=== PATIENT | female | born 1940 | race Caucasian/White ===

== ENCOUNTER → 2017-10-17 09:44 | Outpatient (CLI) | payer BC, SELFPAY ==
--- NOTE | 2017-10-17 09:46 | DI.RAD.S_ITS ---
PROCEDURE: XR ANKLE RT MIN 3V INDICATIONS: Fall TECHNIQUE: 3 views of the ankle were acquired. COMPARISON: None. FINDINGS: Bones: There is a nondisplaced lateral malleolar fracture. Ankle mortise is normally aligned. No suspicious bony lesions. Osteopenia. Soft tissues: No tibiotalar joint effusion. Achilles tendon appears normal. Mild soft tissue swelling over the lateral toes. IMPRESSION: Nondisplaced lateral malleolar fracture. Dictated by: Vannesa Murguia M.D. on 10/17/2017 at 10:18 Approved by: Vannesa Murguia M.D. on 10/17/2017 at 10:23
== END ==
PROVIDERS: PCP Family Medicine; Visit Provider Physician Assistant
DX: S82.64XA Nondisplaced fracture of lateral malleolus of right fibula, initial encounter for closed fracture (principal)
CPT/HCPCS: 73610

== ENCOUNTER → 2018-06-21 15:39 | Outpatient (CLI) | payer BC, SELFPAY ==
--- NOTE | 2018-06-21 15:40 | DI.MRI.S_ITS ---
PROCEDURE: MR CERVICAL SPINE WO CON INDICATIONS: Cervical spondylosis TECHNIQUE: Noncontrast sagittal T1 spin echo and T2 fast spin echo, sagittal STIR, foraminal oblique sagittal T2 fast spin echo, and axial gradient echo or T2 fast spin echo through the cervical spine. COMPARISON: None. FINDINGS: Image quality: Excellent. Alignment and Curvature: There is normal bony alignment. Bone Marrow: Rectal endplate changes no disc of C4-C5, C5-C6 and C6-C7 and C7-T1 discs. Spinal Cord: Visualized spinal cord has normal size and signal. No cerebellar tonsillar herniation. Paraspinous Soft Tissues: No paravertebral masses. Prevertebral soft tissues are normal in thickness. C2-C3: Loss of disc signal and slight loss of disc height. Mild, diffuse disc bulge. Moderate bilateral facet hypertrophy. No central stenosis. Moderate right and mild left neural foraminal narrowing. No neural impingement. C3-C4: Loss of disc signal and slight loss of disc height. Minimal, diffuse disc bulge. Mild right and severe left facet hypertrophy. No central stenosis. Moderate right and severe left neural foraminal narrowing flattening deformity of the exiting left C4 nerve root. C4-C5: Loss of disc signal and height. Moderate, diffuse disc bulge. Moderate bilateral facet hypertrophy. Moderate bilateral uncovertebral joint hypertrophy. Mild to moderate narrowing of the central canal. Severe bilateral neural foraminal narrowing with flattening deformity of the exiting C5 nerve roots. C5-C6: Loss of disc signal and height. Moderate, diffuse disc bulge. Small central disc protrusion. Mild bilateral facet hypertrophy. Moderate bilateral uncovertebral joint hypertrophy. Mild to moderate narrowing of the central canal. Severe right and moderate left neural foraminal narrowing with flattening deformity the exiting right C6 nerve root. C6-C7: Loss of disc signal and height. Mild to moderate diffuse disc bulge. Mild bilateral facet hypertrophy. Mild bilateral uncovertebral joint hypertrophy. Mild narrowing of the central canal. Mild bilateral neural foraminal narrowing. No neural impingement. C7-T1: Loss of disc signal and height. Minimal, diffuse disc bulge. Mild bilateral facet hypertrophy. No central stenosis. No neural foraminal narrowing. No neural impingement. IMPRESSION: 1. Multilevel degenerative disc disease. 2. Multilevel facet arthropathy and uncovertebral joint hypertrophy. 3. Mild to moderate C4-C5 and C5-C6 central canal narrowing. Mild C6-C7 central canal narrowing. 4. Severe bilateral C4-C5 neural foraminal narrowing. Moderate right and severe left C3-C4 neural foraminal narrowing. Severe right and moderate left C5-C6 neural foraminal narrowing. Moderate right and mild left C2 and C3 neural foraminal narrowing. Mild bilateral C6-C7 neural foraminal narrowing. 5. Flattened deformity of the exiting left C4 nerve root, the exiting bilateral C5 nerve roots and the exiting right C6 nerve root secondary to neural foraminal narrowing. Please correlate with clinical data. Dictated by: Yasmeen Sage MD, PhD on 06/21/2018 at 17:05 Approved by: Yasmeen Sage MD, PhD on 06/21/2018 at 17:17
== END ==
PROVIDERS: PCP Family Medicine; Visit Provider Physical Medicine & Rehabilitation
DX: M47.22 Other spondylosis with radiculopathy, cervical region (principal); M50.11 Cervical disc disorder with radiculopathy, high cervical region; M48.02 Spinal stenosis, cervical region
CPT/HCPCS: 72141

== ENCOUNTER 2018-07-12 10:28 | Outpatient (CLI) | payer BC, SELFPAY ==
[2018-07-12] VITALS (7 sets, daily range): BP systolic 139–202; BP diastolic 64–85; PULSE 61–86; RESP 16–22; TEMP 36; O2SAT 96–100
--- NOTE | 2018-07-12 10:30 | DI.RAD.S_ITS ---
PROCEDURE: PAIN C/T FACET INJ/BLK 1ST L INDICATIONS: Cervical spondylosis FINDINGS: Fluoroscopic spot filming was performed to verify placement of spinal needles at the right C5-6, C6-7, and C7-T1 facet joint level(s), as labeled on the films. Appropriate location(s) of the needle tip(s) was confirmed by injection of iodinated contrast. IMPRESSION: Successful needle tip localization is at the right-sided facet joints discussed above, for facet steroid injection. Dictated by: Albaro Wall M.D. on 07/12/2018 at 12:41 Approved by: Albaro Wall M.D. on 07/12/2018 at 12:41
[2018-07-12] MEDS: MIDAZOLAM 5 MG/5 ML VIAL IV (11:25)
[2018-07-12] MEDS: BUPIVACAINE 0.5% (PF) VIAL 2 ML INJ (11:35)
[2018-07-12] MEDS: IOPAMIDOL 15 ML VIAL 3 ML INJ (11:35)
[2018-07-12] MEDS: LIDOCAINE 1% 20 ML INJ 10 ML INJ (11:36)
[2018-07-12] MEDS: fentaNYL 100 MCG/2 ML INJ 50 MCG IV (11:36)
[2018-07-12] MEDS: DEXAMETHASONE 10 MG/ML VIAL 20 MG INJ (11:36)
--- NOTE | 2018-07-12 11:48 | P.PCN_ITS ---
Procedures Date/Time Date of procedure: 07/12/18 Time of procedure: 11:46 General Procedure description: PREOP DIAGNOSIS 1. FACET ARTHROPATHY 2. AXIAL NECK PAIN POST OP DIAGNOSIS 1. FACET ARTHROPATHY 2. AXIAL NECK PAIN PROCEDURES 1. FLUOROSCOPICALLY GUIDED, CONTRAST-CONTROLLED RIGHT C5/6, C6/7, C7/T1 FACET JOINT INJECTIONS WITH CONSCIOUS SEDATION. PHYSICIAN: Mika Cohn, INDICATIONS Erika is referred by Dr. Tabor for treatment of Axial Neck Pain DESCRIPTION OF PROCEDURE Fluoroscopically guided, contrast-controlled right C5/6, C6/7, C7/T1 facet joint injections with conscious sedation. Following denial of allergy and review of potential side effects and complications, including, but not necessarily limited to, infection, allergic reaction, local tissue breakdown, stroke, temporary or permanent nerve injury and paralysis, the patient indicated that the patient understood and agreed to proceed. An informed consent document was signed by the patient, witnessed by a nurse, and placed in the patient's chart. Additionally, other treatment options including medications, modalities, and physical therapy were reviewed with the patient. After review of previous anaesthesic history and IV conscious sedation the patient was deemed safe to proceed with todays procedure with IV conscious sedation as ASA class II designation. Safety time-out was performed to confirm patient ID, procedure to be performed and site of procedure. IV sedation was accomplished with a combination of 5mg of Versed and 50mcg of Fentanyl was administered by the RN after DO order, titrated to patient comfort during the course of the procedure while the patient remained responsive to all verbal commands In the prone position, following sterile prep and drape of the cervical spine region, the posterior aspect of the right C5/6 and C6/7 facet joints were identified fluoroscopically. The skin was anesthetized via a 25-gauge 1.5-inch needle with 1% lidocaine solution into the corresponding facet joints. At this point, a 25-gauge 2.5-inch spinal needle was atraumatically introduced and advanced under fluoroscopic guidance into the corresponding facet joints. Following negative aspiration, injections of approximately 0.2-cc of Isovue 200 confirmed interarticular placement without vascular uptake. At this point, a total of 1 cc including 0.5 cc or 5 mg of dexamethasone combined with 0.5 cc of 1% lidocaine solution was injected without complication into each of the corresponding facet joints. The procedure tolerated the procedure well without signs or symptoms of complications prior to transfer to the recovery area continued monitoring without incident. The patient was then transferred to the recovery area where they were observed for an appropriate period of time after the injection. The patient reported a VAS score of 7 prior to the procedure and a post- procedure VAS of 0. Total Fluoroscopy Time: 20.5 seconds Total Conscious Sedation Time: 24 min POST OP INSTRUCTIONS They were provided a Pain Log to continue to record their response to the target-specific procedure prior to their follow-up visit with their referring physician. Additionally, specific post-injection care instructions and a contact number to our office were provided if concerns arise regarding possible complications associated with the procedure are suspected. Mika Cohn, Complications: none
--- NOTE | 2018-07-12 11:51 | PC.NURSE ---
pt tolerated procedure well. Some difficulty getting patient off the table related to sedation. But after she woke up she was able to get into the wheelchair with 2 person moderate assist. able to stand and weight bear. Transferred pt via wheelchair to pre procedure room for continued monitoring with Hidla HUGHES.
== END 2018-07-12 12:40 ==
LOC: RAD 10:29
PROVIDERS: PCP Family Medicine; Visit Provider Physical Medicine & Rehabilitation
DX: M47.812 Spondylosis without myelopathy or radiculopathy, cervical region (principal); M54.2 Cervicalgia
CPT/HCPCS: 64490; 64491; 64492; 99152; J1100; J2250; J3010

== ENCOUNTER → 2018-08-22 16:59 | Outpatient (CLI) | payer BC, SELFPAY ==
--- NOTE | 2018-08-22 17:05 | DI.RAD.S_ITS ---
PROCEDURE: XR KNEE LT 3V INDICATIONS: fall TECHNIQUE: 3 views of the knee were acquired. COMPARISON: None. FINDINGS: Bones: No fractures or dislocations. No suspicious bony lesions. Soft tissues: No joint effusion. No suspicious soft tissue calcifications. IMPRESSION: Mild narrowing of the joint space at the medial compartment, and at the lateral facet of the patellofemoral joint, but no trauma found. Dictated by: Albaro Wall M.D. on 08/22/2018 at 17:39 Approved by: Albaro Wall M.D. on 08/22/2018 at 17:39
--- NOTE | 2018-08-22 17:05 | DI.RAD.S_ITS ---
PROCEDURE: XR KNEE RT 3V INDICATIONS: fall TECHNIQUE: 3 views of the knee were acquired. COMPARISON: None. FINDINGS: Bones: No fractures or dislocations. No suspicious bony lesions. Soft tissues: No joint effusion. No suspicious soft tissue calcifications. IMPRESSION: There is mild degenerative osteoarthritic joint space narrowing of the medial compartment and the lateral facet of the patellofemoral joint similar to that seen on the left. No acute trauma found. Dictated by: Albaro Wall M.D. on 08/22/2018 at 17:39 Approved by: Albaro Wall M.D. on 08/22/2018 at 17:40
== END ==
PROVIDERS: Family Provider Family Medicine; PCP Family Medicine; Visit Provider Physician Assistant
DX: M25.562 Pain in left knee (principal); M25.561 Pain in right knee
CPT/HCPCS: 73562

== ENCOUNTER → 2018-12-20 07:55 | Outpatient (CLI) | payer BC, SELFPAY ==
--- NOTE | 2018-12-20 | DI.ECHO.S_ITS ---
[facility] +---------+ : : [address] : : : : [address] : : : : [place], : : : : [place] [id number] : : : : Phone: [phone] [phone] Echocardiogram Report + + :Name: EVERETT CALI Study Date: 12/20/2018 Height: 67 in : :[facility] Exam Location: [facility] Weight: 130 lb : : Gender: Female BSA: 1.7 m2 : :: 1940 Age: 78 yrs BP: 152/62 mmHg: :Reason For Study: MR : : Performed By: Lucian Boles : :Referring: KADE WARD : + + Interpretation Summary The ejection fraction is estimated to be 60% with visual assessment. Unfortunately the MOD could not be used accurately due to foreshortening of the apex. The ejection fraction by Teichholz method is 60-65%. 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 There is severe mitral regurgitation, mainly occurring at late systole and directed towards left pulmonary veins. The left atrium is severely dilated. The right ventricle is normal in size and function. The PASP is 46 mmHg, assuming an RA pressure of 3 mmHg. There is a small PFO with left to right shunt by color flow. -Compared to prior echo, the left atrium has dilated further and the E/e' ratio is higher with a PFO visible. This is concerning for further elevation in left atrial pressure. The PASP is slightly higher at 46 mmHg compared to 40 mmHg. -Frequent PVCs were noted. Procedure: A two-dimensional transthoracic echocardiogram with color flow and Doppler was performed. The study quality was technically good. Comparison is made with the echocardiogram of 10/21/16. The patient was in normal sinus rhythm during the exam. The patient had frequent PVCs during the exam. Left Ventricle: There is normal left ventricular wall thickness. The left ventricle is mildly dilated. The ejection fraction is estimated to be 55-60%. There are no focal wall motion abnormalities. Diastolic parameters suggest a pseudonormalization pattern, consistent with probable elevated filling pressures. Right Ventricle: The right ventricle is normal in size and function. Atria: The left atrium is severely dilated. Right atrial size is normal. A small PFO with left to right flow is present. Mitral Valve: The mitral valve leaflets appear moderately thickened, but open well. There is severe mitral valve prolapse. There is severe mitral regurgitation. Aortic Valve: The aortic valve is trileaflet. The aortic valve opens well. No aortic regurgitation is present. Tricuspid Valve: The tricuspid valve is normal in structure and function. There is mild tricuspid regurgitation. The right ventricular systolic pressure is estimated to be at least 46 mmHg based on an estimated right atrial pressure of 3 mm Hg. Pulmonic Valve: The pulmonic valve is normal in structure and function. There is trace pulmonic regurgitation. Great Vessels: The aortic root is normal size. The ascending aorta is at the upper limits of normal in size. The pulmonary artery is normal size. The IVC is of normal diameter and collapses greater than 50% with a sniff. This suggests a low right atrial pressure of 3 mm Hg. Pericardium/ Pleura There is no pericardial effusion. There is no pleural effusion. MMode/2D Measurements & Calculations LVIDd: 5.6 cm AoV Openin.8 cm LVIDs: 3.6 cm LVOT diam: 2.0 cm IVSd: 0.86 cm Ao root diam: 3.2 cm LVPWd: 0.91 cm Aortic Jxn: 2.7 cm LV eisenberg. diameter/BSA (cm/m^2): 3.3 asc Aorta Diam: 3.5 cm LV sys. diameter/BSA (cm/m^2): 2.1 Ao Arch Diam (Prox Trans): 2.9 cm FS: 34.8 % EPSS: 0.55 cm LA dimension: 4.6 cm RA long axis: 4.1 cm LA A2 area: 35.9 cm2 RA area: 13.6 cm2 LA A4 area: 33.6 cm2 RA vol: 39.1 ml LA length (vol): 7.2 cm RA : 23.2 ml/m2 LA vol: 141.7 ml LA vol index: 84.2 ml/m2 IVC diam: 1.9 cm LVAd ap4: 26.1 cm2 LVAs ap4: 20.6 cm2 LVLs ap4: 6.4 cm Doppler Measurements & Calculations Ao V2 max: 105.1 cm/sec LVOT Max Pranay: 88.7 cm/sec Ao V2 mean: 81.8 cm/sec LV V1 max P.1 mmHg Ao V2 VTI: 22.4 cm LV V1 VTI: 15.9 cm Ao max P.4 mmHg Ao mean P.8 mmHg AC(I,D): 2.3 cm2 MV E max pranay: 100.0 cm/sec AC(V,D): 2.7 cm2 MV A max pranay: 54.6 cm/sec AC indexed to BSA (cm^2/m^2): 1.3 MV E/A: 1.8 sev ratio: 0.71 Med Peak E' Pranay: 4.0 cm/sec E/E' med: 25.0 Lat Peak E' Pranay: 5.0 cm/sec E/E' lat: 20.1 E/e' average: 22.5 MV dec time: 0.18 sec TR max pranay: 326.4 cm/sec TR max P.6 mmHg PA V2 max: 53.1 cm/sec SV(LVOT): 50.6 ml PA V2 mean: 42.5 cm/sec PA mean P.75 mmHg PA pr(Accel): 22.4 mmHg PA Accel Time: 0.13 sec Electronically signed by: Fabio Dennison M.D. on Reading Physician:12/20/2018 05:14 PM
== END ==
PROVIDERS: Family Provider Family Medicine; PCP Family Medicine; Visit Provider Internal Medicine Cardiovascular Disease
DX: I08.1 Rheumatic disorders of both mitral and tricuspid valves (principal)
CPT/HCPCS: 93306

== ENCOUNTER 2019-03-09 08:13 | Outpatient (CLI) | payer BC, SELFPAY ==
--- NOTE | 2019-03-09 08:14 | DI.RAD.S_ITS ---
PROCEDURE: PAIN C/T INTERLAMINAR INJECT INDICATIONS: SPINAL STENOSIS FINDINGS: Fluoroscopic spot filming was performed to verify placement of spinal needles at the low cervical interlaminar notch level(s), as labeled on the films. Appropriate location(s) of the needle tip(s) was confirmed by injection of iodinated contrast. IMPRESSION: Successful needle tip localization for epidural steroid injection via the lower cervical and dorsal midline interlaminar notch. Dictated by: Albaro Wall M.D. on 03/09/2019 at 12:09 Approved by: Albaro Wall M.D. on 03/09/2019 at 12:11
[2019-03-09 08:17] VITALS: BP 164/70; PULSE 68; RESP 16; TEMP 36.2; O2SAT 98
[2019-03-09 09:13] VITALS: BP 177/75; PULSE 70; RESP 16; O2SAT 100
[2019-03-09] MEDS: MIDAZOLAM 5 MG/5 ML VIAL IV (09:14)
[2019-03-09] MEDS: fentaNYL 100 MCG/2 ML INJ 50 MCG IV (09:14)
[2019-03-09 09:18] VITALS: BP 151/68; PULSE 69; RESP 16; O2SAT 100
[2019-03-09] MEDS: LIDOCAINE 1% 20 ML 5 ML INJ (09:19)
[2019-03-09] MEDS: DEXAMETHASONE 10 MG/ML VIAL 30 MG INJ (09:19)
[2019-03-09] MEDS: IOPAMIDOL 15 ML VIAL 3 ML INJ (09:19)
[2019-03-09 09:22] VITALS: BP 156/76; PULSE 62; RESP 16; O2SAT 100
--- NOTE | 2019-03-09 09:23 | PC.NURSE ---
ASSISTING PT OFF TABLE AND TRANSPORTING TO POST PROC AREA IN STABLE CONDITION. PREPPED AND ADMINISTERED VERSED AND FENTANYL. ALL OTHER MEDS PREPPED AND ADMINISTERED BY DR. SARAH.
--- NOTE | 2019-03-09 09:32 | P.PCN_ITS ---
Procedures Date/Time Date of procedure: 03/09/19 Time of procedure: 09:33 General Procedure description: PREOP DIAGNOSIS 1. CERVICAL STENOSIS, 2. CERVICAL HNP WITH UPPER EXTREMITY RADICULAR FEATURES, POST OP DIAGNOSIS 1. CERVICAL STENOSIS, 2. CERVICAL HNP WITH UPPER EXTREMITY RADICULAR FEATURES, PROCEDURES 1. FLUORSCOPICALLY GUIDED CONTRAST CONTROLLED INTERLAMINAR EPIDURAL STEROID INJECTION - C6/7 TL MARITA PHYSICIAN: DO MALCOLM Lobato Erika is referred by Dr. Tabor for treatment of Cervical HNP with Upper Extremity Paresthesias. FINDINGS Cervical Stenosis due to disc deterioration and nerve root irritation and nerve root irritation DESCRIPTION OF PROCEDURE Fluoroscopically guided, contrast-controlled C6/7 translaminar epidural steroid injection with conscious sedation. Following review of allergy and review of potential side effects and complications, including, but not necessarily limited to, infection, allergic reaction, local tissue breakdown, temporary as well as permanent nerve injury, stroke, paralysis, and possible , the patient indicated that patient understood and agreed to proceed. An informed consent document was signed by the patient, witnessed by a nurse, and placed in the patient's chart. Additionally, other treatment options including modalities, medications, and physical therapy were reviewed with the patient. After review of previous anaesthesic history and IV conscious sedation the patient was deemed safe to proceed with todays procedure with IV conscious sedation as ASA class II designation. Safety time-out was performed to confirm patient ID, procedure to be performed and site of procedure. IV sedation was accomplished with a combination of 2mg of Versed and 50mcg of Fentanyl administered by the RN after DO order, titrated to patient comfort during the course of the procedure while the patient remained responsive to all verbal commands. In the prone position, following sterile prep and drape of the cervical region, the C6/7 translaminar space was identified fluoroscopically. The skin was anesthetized via a 25-gauge 1.5-inch needle with 1% lidocaine solution. At this point, a 25-gauge, 2.5-inch short bevel spinal needle was atraumatically int roduced and advanced under fluoroscopic guidance into epidural space at the C6/7 translaminar space. Depth was confirmed on lateral view. Radiological data, including multiple fluoroscopic views of the cervical spine, reveal a spinal needle at the C6/7 translaminar space. Lateral views then show placement of the needle in the epidural space. Subsequent views show contrast material flowing superiorly and inferiorly in the epidural space. DSA fluoroscopy with live contrast injection, once again, confirmed no vascular or intrathecal uptake. At this point, using loss of resistance technique with saline and air, the epidural space was entered. Following negative aspiration, injection of approximately 1.5 cc of Isovue-200 with live fluoroscopy in the AP view confirmed epidural flow in the epidural space without vascular or intrathecal uptake observed. Subsequently, a test dose of 1 cc of 1% lidocaine solution was injected and patient was observed for two minutes without signs or symptoms of complications, including abdominal pain, shortness of breath, bilateral upper or lower extremity weakness, nausea and vomiting, prior to steroid injection. At this point, 2cc or 20mg of dexamethasone was then injected without incident. The patient tolerated the procedure well without signs or symptoms of complications prior to being transferred to the recovery area for further monito ring, The patient was then transferred to the recovery area where they were observed for an appropriate period of time after the injection. The patient reported a VAS score of 6 prior to the procedure and a post-procedure VAS of 0. Total Fluoroscopy Time: 37.0 seconds Total Conscious Time: 24min POST OP INSTRUCTIONS The patient was provided a Pain Log to continue to record their response to the target-specific procedure prior to follow-up visit with the referring provider. Additionally, specific post-injection care instructions and a contact number to our office were provided if concerns arise regarding possible complications associated with the procedure are suspected. Mika Cohn DO Complications: none
[2019-03-09 09:40] VITALS: BP 143/86; PULSE 60; RESP 16; O2SAT 95
[2019-03-09 09:46] VITALS: BP 132/85; PULSE 59; RESP 16; O2SAT 96
== END 2019-03-09 10:15 | disposition home or self-care (01) ==
PROVIDERS: Family Provider Family Medicine; PCP Family Medicine; Visit Provider Physical Medicine & Rehabilitation
DX: M47.812 Spondylosis without myelopathy or radiculopathy, cervical region (principal); M50.123 Cervical disc disorder at C6-C7 level with radiculopathy; M48.02 Spinal stenosis, cervical region; R20.2 Paresthesia of skin
CPT/HCPCS: 62321; 99152; J1100; J2250; J3010

== ENCOUNTER 2019-04-19 08:09 | Outpatient (CLI) | payer BC, SELFPAY ==
[2019-04-19] VITALS (10 sets, daily range): BP systolic 130–177; BP diastolic 60–96; PULSE 50–81; RESP 16; TEMP 36.5; O2SAT 95–100
--- NOTE | 2019-04-19 08:10 | DI.RAD.S_ITS ---
PROCEDURE: PAIN C/T FACET INJ/BLK 1ST L INDICATIONS: SPONDYLOSIS FINDINGS: Fluoroscopic spot filming was performed to verify placement of spinal needles at the C5, C6, C7 and T1 level(s), as labeled on the films. Appropriate location(s) of the needle tip(s) was confirmed by injection of iodinated contrast. IMPRESSION: Fluoroscopy for pain management. Dictated by: Vannesa Murguia M.D. on 04/19/2019 at 10:09 Approved by: Vannesa Murguia M.D. on 04/19/2019 at 10:10
[2019-04-19] MEDS: fentaNYL 100 MCG/2 ML INJ 50 MCG IV (09:27)
[2019-04-19] MEDS: MIDAZOLAM 5 MG/5 ML VIAL IV (09:27)
[2019-04-19] MEDS: LIDOCAINE 1% 20 ML 10 ML INJ (09:37)
[2019-04-19] MEDS: BUPIVACAINE 0.5% (PF) VIAL 2 ML INJ (09:37)
[2019-04-19] MEDS: IOPAMIDOL 15 ML VIAL 3 ML INJ (09:37)
--- NOTE | 2019-04-19 09:41 | PC.NURSE ---
ASSISTING PT OFF TABLE AND TRANSPORTING TO POST PROC AREA IN STABLE CONDITION. PASSING RN CARE OF PT OFF TO SHANITA Xavier RN.
--- NOTE | 2019-04-19 09:47 | P.PCN_ITS ---
Procedures Date/Time Date of procedure: 04/19/19 Time of procedure: 09:48 General Procedure description: PREOP DIAGNOSIS 1. FACET ARTHROPATHY 2. AXIAL NECK PAIN POST OP DIAGNOSIS 1. FACET ARTHROPATHY 2. AXIAL NECK PAIN PROCEDURES 1. FLUOROSCOPICALLY GUIDED, CONTRAST-CONTROLLED RIGHT C5, C6, C7 and T1 MBB. PHYSICIAN: Mika Cohn, DO INDICATIONS Erika is referred by for treatment of Axial Neck Pain DESCRIPTION OF PROCEDURE Fluoroscopically guided, contrast-controlled right C5, C6, C7 and T1 Diagnostic Medial Branch Blocks. Following review of allergy and review of potential side effects and complications, including, but not necessarily limited to, infection, allergic reaction, local tissue breakdown, stroke, temporary or permanent nerve injury and paralysis, the patient indicated that the patient understood and agreed to proceed. An informed consent document was signed by the patient, witnessed by a nurse, and placed in the patient's chart. Additionally, other treatment options including medications, modalities, and physical therapy were reviewed with the patient. After review of previous anaesthesic history and IV conscious sedation the patient was deemed safe to proceed with todays procedure with IV conscious sedation as ASA class II designation. Safety time-out was performed to confirm patient ID, procedure to be performed and site of procedure. IV sedation was accomplished with a combination of 2mg of Versed and 50mcg of Fentanyl was administered by the RN after DO order, titrated to patient comfort during the course of the procedure while the patient remained responsive to all verbal commands Time-out was taken to identify the correct patient, procedure and side prior to starting the procedure. Lying in the prone position, the patient was prepped and draped in the usual sterile fashion using Chlorhexaidine scrub and a fenestrated drape. The level was determined under fluoroscopy. The skin was anesthetized via a 25-gauge 1.5- inch needle with 1% lidocaine solution into the corresponding right C5, C6, C7 and T1 lateral pillars. At this point, a 22-gauge short bevel spinal needle was atraumatically introduced and advanced under fluoroscopic guidance to the anatomical pillars. Following negative aspiration, injections of approximately 0.1cc of Isovue 200 confirmed interarticular placement without vascular uptake. At this point, a total of 1cc of 0.5% was injected without complication into each of the corresponding medial branch anatomical location. The patient tolerated the procedure well without signs or symptoms of complications prior to transfer to the recovery area continued monitoring without incident. The patient was then transferred to the recovery area where they were observed for an appropriate period of time after the injection. The patient reported a VAS score of 7 prior to the procedure and a post- procedure VAS of 1. Total Fluoroscopy Time: 20.5 seconds Total Conscious Sedation Time: 24 min POST OP INSTRUCTIONS They were provided a Pain Log to continue to record their response to the target-specific procedure prior to their follow-up visit with their referring physician. Additionally, specific post-injection care instructions and a contact number to our office were provided if concerns arise regarding possible complications associated with the procedure are suspected.
--- NOTE | 2019-04-19 10:14 | PC.NURSE ---
Post procedure note: Patient arrived at 0954. Patient able to transfer to recliner from wheelchair with stand by assist. Pain level 1/10. Denies any unusual numbness, tingling or headaches. Discharge instructions reviewed with patient and spouse with good understanding. Discharged to home with spouse. W/c to car. Pain level 0/10 at 1010
== END 2019-04-19 10:10 | disposition home or self-care (01) ==
LOC: RAD 08:10
PROVIDERS: Family Provider Family Medicine; PCP Family Medicine; Visit Provider Physical Medicine & Rehabilitation
DX: M47.812 Spondylosis without myelopathy or radiculopathy, cervical region (principal); M54.2 Cervicalgia
CPT/HCPCS: 64490; 64491; 64492; 99152; J2250; J3010

== ENCOUNTER → 2019-09-24 10:18 | Outpatient (CLI) | payer BC, SELFPAY ==
--- NOTE | 2019-09-24 10:19 | DI.RAD.S_ITS ---
PROCEDURE: XR CERVICAL SPINE 4V OR 5V INDICATIONS: neck djd TECHNIQUE: 5 views of the cervical spine acquired. COMPARISON: [facility], CR, CLAVICLE RIGHT 2 VIEWS, 03/24/2009, 12:04. FINDINGS: Bones: No fractures or dislocations to the T1 level. Multilevel degenerative endplate sclerosis and spurring. Diffuse facet arthropathy. Grade 1 anterolisthesis of C3 on C4. Straightening of the normal lordotic curvature. Severe narrowing of the C4-C5, C5-C6, C6-C7, C7-T1 disc spaces. On the right, there is mild C5-C6 and C6-7 bony foraminal narrowing. On the left, severe C3-C4 bony foraminal stenosis. There is mild C7-T1 bony foraminal narrowing Soft tissues: No prevertebral soft tissue swelling. IMPRESSION: Multilevel cervical spondylosis and facet arthropathy as above Grade 1 anterolisthesis of C3 on C4. Dictated by: Doroteo Osman M.D. on 09/24/2019 at 12:51 Approved by: Doroteo Osman M.D. on 09/24/2019 at 12:53
== END ==
PROVIDERS: Family Provider Family Medicine; PCP Family Medicine; Referring Provider Physical Medicine & Rehabilitation; Visit Provider Physical Medicine & Rehabilitation
DX: M47.22 Other spondylosis with radiculopathy, cervical region (principal); M43.12 Spondylolisthesis, cervical region
CPT/HCPCS: 72050

== ENCOUNTER → 2019-12-06 10:28 | Outpatient (CLI) | payer BC, SELFPAY ==
[2019-12-06 13:27] LABS: BUN Creatinine Ratio 31.6 (6-22); Blood Urea Nitrogen 25 mg/dL (7-17); Carbon Dioxide 30 mmol/L (22-32); Chloride 105 mmol/L (98-107); Estimated Glomerular Filt Rate > 60.0 mL/min (>60); Glucose 92 mg/dL (80-110); HEMOLYSIS < 15 (0-50); Sodium 140 mmol/L (137-145)
== END ==
PROVIDERS: Family Provider Family Medicine; PCP Family Medicine; Referring Provider Internal Medicine Cardiovascular Disease; Visit Provider Internal Medicine Cardiovascular Disease
DX: R01.1 Cardiac murmur, unspecified (principal); I34.0 Nonrheumatic mitral (valve) insufficiency; I49.3 Ventricular premature depolarization
CPT/HCPCS: 36415; 80048

== ENCOUNTER → 2021-05-13 11:07 | Outpatient (CLI) | payer BC, SELFPAY ==
--- NOTE | 2021-05-13 | DI.RAD.S_ITS ---
PROCEDURE: XR HIP W PEL IF DONE LT 2V INDICATIONS: Pain in left hip TECHNIQUE: AP pelvis and lateral view of the left hip acquired. COMPARISON: None. FINDINGS: Bones: Patient is status post lap hip arthroplasty, with hardware components in expected positions. The hip joint appears congruent. The visualized bony structures appear intact. Soft tissues: Overlying postoperative changes are noted. No suspicious soft tissue densities. IMPRESSION: Expected appearance of left hip arthroplasty. Dictated by: Zoe Khalil M.D. on 05/13/2021 at 13:53 Approved by: Zoe Khalil M.D. on 05/13/2021 at 13:53
== END ==
PROVIDERS: Family Provider Family Medicine; PCP Family Medicine; Referring Provider Family Medicine; Visit Provider Family Medicine
DX: M25.552 Pain in left hip (principal); Z96.642 Presence of left artificial hip joint
CPT/HCPCS: 73502

== ENCOUNTER → 2021-07-10 12:00 | Outpatient (CLI) | payer BC, SELFPAY ==
--- NOTE | 2021-07-10 | DI.MRI.S_ITS ---
PROCEDURE: MR HEAD/BRAIN WO/W CON INDICATIONS: Dizziness and giddiness TECHNIQUE: Noncontrast axial T1 spin echo, axial T2 fast spin echo, sagittal and axial FLAIR, coronal T2 fast spin echo, axial gradient echo, axial diffusion and ADC through the brain. After the administration of contrast, axial and coronal T1 spin echo with fat saturation through the brain. COMPARISON: None. FINDINGS: Image quality: Excellent. CSF spaces: Basal cisterns are patent. No extra-axial fluid collections. Ventricles are normal in size and shape. Brain: No midline shift. No intracranial bleeds or masses. No abnormal intracranial enhancement. There is cerebral volume loss for age. There is periventricular white matter chronic small vessel ischemic change. The brainstem appears normal. Diffusion-weighted images demonstrate no acute ischemic insults. No chronic ischemic insults. Normal intravascular flow voids are present. Skull and face: Calvarial marrow is normal in signal. Orbits appear normal. Note is made of bilateral lens replacements. Sinuses: Sinuses and mastoids appear clear. IMPRESSION: No imaging explanation is found for this patient's presenting symptoms. No masses or abnormal enhancement can be seen. No findings of acute or subacute infarction can be seen. Dictated by: Federico Smallwood M.D. on 07/10/2021 at 13:12 Approved by: Federico Smallwood M.D. on 07/10/2021 at 13:13
== END ==
PROVIDERS: Family Provider Family Medicine; PCP Family Medicine; Referring Provider Family Medicine; Visit Provider Family Medicine
DX: R42 Dizziness and giddiness (principal)
CPT/HCPCS: 70553

== ENCOUNTER → 2022-03-10 08:51 | Outpatient (CLI) | payer BC, SELFPAY ==
--- NOTE | 2022-03-10 08:55 | DI.CT.S_ITS ---
PROCEDURE: CT SOFT TISSUE NECK W CON INDICATIONS: Localized swelling, mass and lump, trunk TECHNIQUE: After the administration of intravenous contrast, 3.0 mm axial sections acquired from the sella to the aortic arch. Additional oblique axial 3.0 mm sections acquired through the pharynx. 3 mm thick coronal and sagittal reformats were generated. For radiation dose reduction, the following was used: automated exposure control. COMPARISON: None. FINDINGS: Image quality: Excellent. Lymph nodes: Right neck base mass thought to represent pathologic right supraclavicular lymph node measures 2.9 cm craniocaudal and 4.3 x 3.8 cm maximum axial dimension. No additional enlarged lymph nodes seen throughout the neck. Vessels: Visualized vasculature appears patent. Neck spaces: The oropharynx, nasopharynx, and pharynx demonstrate no mucosal lesions. The vocal cords, false vocal cords, pyriform sinuses, epiglottis, vallecula, and tongue base all appear normal. Extramucosal spaces appear unremarkable. Glands: The parotid and submandibular glands appear normal. Thyroid gland uniform. Miscellaneous: Visualized brain and orbits appear normal. Lung apices appear clear. Superficial soft tissues appear normal. Bones: No suspicious bony lesions. Visualized sinuses and mastoids appear unremarkable. IMPRESSION: Right neck base mass favored to represent pathologic right supraclavicular lymph node. Biopsy recommended. Dictated by: Jose Reyna M.D. on 03/10/2022 at 11:07 Approved by: Jose Reyna M.D. on 03/10/2022 at 11:10
[2022-03-10 09:34] LABS: BUN Creatinine Ratio 37.2 (6-22); Blood Urea Nitrogen 29 mg/dL (7-17); Calcium 9.2 mg/dL (8.4-10.2); Carbon Dioxide 29 mmol/L (22-32); Chloride 103 mmol/L (98-107); Estimated Glomerular Filt Rate > 60 mL/min (>60); Glucose 86 mg/dL (80-110); HEMOLYSIS < 15 (0-50); Potassium 3.5 mmol/L (3.4-5.1); Sodium 140 mmol/L (137-145)
--- NOTE | 2022-03-10 10:12 | DI.RAD.S_ITS ---
PROCEDURE: XR CHEST 2V INDICATIONS: LOCALIZED SWELLING NECK MASS TECHNIQUE: 2 views of the chest were acquired. COMPARISON: [facility], CHEST 2 VIEW, 02/06/2015, 13:05. [facility], CHEST 2 VIEW, 01/04/2015, 11:03. FINDINGS: Surgical changes and devices: None. Lungs and pleura: Lungs are clear. No pleural effusions or pneumothorax. Mediastinum: Mediastinal contours are normal. Heart size is enlarged. Bones and chest wall: No suspicious bony abnormalities. Soft tissues appear unremarkable. IMPRESSION: 1. No acute cardiopulmonary abnormality. 2. Cardiomegaly Dictated by: Antonio Dawn M.D. on 03/10/2022 at 12:36 Approved by: Antonio Dawn M.D. on 03/10/2022 at 12:37
== END ==
PROVIDERS: Family Provider Family Medicine; PCP Family Medicine; Referring Provider Family Medicine; Visit Provider Family Medicine
DX: R22.1 Localized swelling, mass and lump, neck; I51.7 Cardiomegaly
CPT/HCPCS: 36415; 70491; 71046; 80048; Q9967

== ENCOUNTER → 2022-03-23 10:00 | Outpatient (CLI) | payer BC, SELFPAY ==
[2022-03-23 12:13] LABS: COVID19 -Nasal RAPID Negative (Negative)
== END ==
PROVIDERS: Family Provider Family Medicine; PCP Family Medicine; Visit Provider Surgery
DX: Z01.812 Encounter for preprocedural laboratory examination (principal); Z20.822 Contact with and (suspected) exposure to COVID-19
CPT/HCPCS: 87635; C9803

== ENCOUNTER 2022-03-24 13:41 | Day surgery (SDC) | payer BC, SELFPAY ==
[2022-03-23 09:40] VITALS: BMI 17.4
[2022-03-24] VITALS (8 sets, daily range): BP systolic 128–154; BP diastolic 67–91; PULSE 74–103; RESP 14–18; TEMP 36.3–37; O2SAT 93–95; BMI 17.4
--- NOTE | 2022-03-24 | PATH_ITS ---
[facility] Accession Number: [id number] . 01 Material submitted: . neck - RIGHT NECK LYMPH NODE . 01 Diagnosis: Right Neck Lymph Node, Excision: Large cell undifferentiated epitheloid malignancy; please see comment. No definite lymph node tissue identified. MRV 04/02/2022 1730 Local . 01 Comment: Sections are of fibroadipose tissue infiltrated by a proliferation of epithelioid cells with eccentric nuclei and variably granular cytoplasm in a sheetlike growth pattern. Marked nuclear atypia with strikingly large nucleoli and readily identified atypical mitotic figures are also features. Foci of necrosis are present. Prominent lymphoplasmacytic and neutrophilic inflammatory infiltrates are also seen. To evaluate the malignant cells, a panel of immunohistochemical stains* is performed (each with an appropriately positive control). The malignant cells show patchy weak immunoreactivity for GEOFFREY/pancytokeratin, compatible with a poorly differentiated carcinoma, but can also be seen in some high-grade sarcomas. The malignant cells show variable immunoreactivity for cytokeratin 7 and TTF1, raising the possibility of lung origin. Additionally, variable expression for SATB2 is seen, a marker of enteric differentiation, which can be seen in GI primary malignancies, and in a subset of lung primary and other malignancies. The malignant cells are negative for ERG, arguing against an angiosarcoma. The malignant cells are negative for CD43 immunoreactivity, essentially excluding a lymphoma. The malignant cells are negative for CD68 immunoreactivity arguing against a histiocytic malignancy. The malignant cells are negative for S100, MelanA, and HMB45 immunoreactivity, excluding melanoma or adrenal cortical carcinoma. The malignant cells are negative for SALL4 immunoreactivity, arguing against a germ cell neoplasm. Additionally, the malignant cells are negative for cytokeratin 20, and for other markers of specific differentiation. The malignant cells are negative for napsin A immunoreactivity, an additional marker of lung primary adenocarcinoma. The malignant cells are negative for GATA3 immunoreactivity, arguing against breast or urothelial origin. The malignant cells are negative for PAX8 immunoreactivity, arguing against Mullerian origin. The malignant cells are negative for cytokeratin 5/6 and p40 immunoreactivity, essentially excluding a squamous cell carcinoma. The malignant cells are negative for villin and CDX2, additional markers of enteric differentiation. . Overall, this is a very challenging case, and clinical and radiographic correlation is required to determine the site of origin. Given some evidence of lung primary malignancy, in order to evaluate for the possibility of a SMARC-A4 deficient carcinoma, SF-1 and INI-1 immunohistochemical stains will be performed and results issued in an addendum. . As part of routine quality system manager, Dr. Phan has reviewed this case and agrees with the interpretation above. The preliminary finding of malignancy was reported to Dr. Bai by Dr. Armstrong on 03/30/2022. Concurrent flow cytometry ([id number]) was nondiagnostic, with no evidence of lymphoma. . * This test was developed and its performance characteristics determined by [employer]. It has not been cleared or approved by the U.S. Food and Drug Administration. The FDA has determined that such clearance or approval is not necessary. This test is used for clinical purposes. It should not be regarded as investigational or for research. . 01 Electronically signed: . Zeus Harris MD, PhD, Pathologist NPI- [id number] . 01 Gross description: . The specimen is received in formalin, labeled with the patient's name, , and right neck lymph node, and consists of a single christianson, irregular lymph node candidate measuring 1.5 x 1.0 x 0.9 cm. A black suture extends from the specimen surface with no designation per the requisition. The external surface is inked blue, and the specimen is trisected and submitted entirely in cassette A1. ([id number]) /[facility] 03/27/2022 1307 Local . 01 Pathologist provided ICD-10: R59.0, C77.0 . 01 CPT . 844460, R84725, Q95164 Specimen Comment: A courtesy copy of this report has been sent to [phone], [phone] Specimen Comment: [id number] Performed at: 01 [facility] [address], [place], [place] [id number] MD Maciej Powell MD Phone: [phone]
[2022-03-24] MEDS: LACTATED RINGERS 1,000 ML 84 ML IV ×2 (14:05→15:32)
--- NOTE | 2022-03-24 14:06 | PM.PREOP ---
Pre-operative Note COVID-19 COVID-19 status: Negative Criteria for continued procedure: Expected advancement of disease process Interval Note History & Physical reviewed/Exam performed by Physician: Yes Changes to H&P: No
[2022-03-24] MEDS: CEFAZOLIN VIAL 1 GM in SODIUM CHLORIDE 0.9% 100 ML IV (14:30)
--- NOTE | 2022-03-24 14:36 | SUR.OPER ---
Supine on padded OR bed, head on pillow, right arm padded and tucked at side, left arm on secured on padded arm board <90 degrees abduction. legs uncrossed, safety belt at thigh, tape over blanket over lower legs .
[2022-03-24] MEDS: BUPIVACAINE 0.5% W/ EPI (PF) 30 ML VIAL INJ (14:45)
--- NOTE | 2022-03-24 15:03 | PM.OP.1 ---
Operative Date/Time/Diagnoses Date of procedure: 03/24/22 Time of procedure: 15:04 Pre-op diagnosis: Right cervical lymphadenopathy Post-op diagnosis: same Procedure & Clinicians Procedure: Excision or biopsy of right cervical lymph node. Same procedure as scheduled: Yes Indications: Abnormal lymph node Surgeon: Brianna Bai Click Yes if Unassisted: Yes Anesthesia Type: General Operative Notes Findings: Enlarged lymph node of the right base of the neck. Closure Type: primary Specimen(s): other (Right neck lymph node) Estimated Blood Loss (mL): 10 Blood products transfused: none Procedure in detail: Preop diagnosis: Right cervical lymphadenopathy Postop diagnosis: Same Operative procedure: Excisional biopsy of right neck lymph node Anesthetic: LMA with general, local Surgeon: Daina Bai MD Findings: Large nonmobile lymph node base the right neck. Two large portions taken 1 sent in formalin. The other for flow cytometry Procedure: Patient placed in a supine position. Prepped and draped sterile fashion to expose her right neck base. Local anesthetic was injected. A curvilinear incision was created along skin lines been sharp and blunt dissection along with electrocautery allowed me to split the platysmas and expose the lymph node beneath. 3-0 silk suture was used to grasp the lymph node for easier manipulation. And then rather than taking the entire lymph node 2 segments were excised sharply and with electrocautery. FloSeal was placed into the cavity after cauterization and direct pressure was held. Wound was closed with running 4-0 Monocryl of skin only. Dermabond was placed across the incision. And then was covered with a sterile dressing. Patient was awakened, extubated, taken to recovery room in stable condition. Needle, instrument, sponge counts were correct. Specimen: Right neck lymph node in formalin and for flow cytometry Blood loss: 10 mL
[2022-03-24] MEDS: OXYCODONE/ACETAMINOPHEN 5/325 TABLET 1 TAB PO ×2 (15:31→16:03)
== END 2022-03-24 16:25 | disposition home or self-care (01) ==
PROVIDERS: Family Provider Family Medicine; PCP Family Medicine; Referring Provider Surgery; Visit Provider Surgery
PROC: (CPT 38510; principal; 2022-03-24 16:00)
DX: C77.0 Secondary and unspecified malignant neoplasm of lymph nodes of head, face and neck (principal)
CPT/HCPCS: 38510; J0690; J2250; J2405; J2704; J3010

== ENCOUNTER → 2022-03-30 12:15 | Outpatient (CLI) | payer BC, SELFPAY ==
--- NOTE | 2022-03-30 12:17 | DI.US.S_ITS ---
PROCEDURE: US EXTREMITY NONVASC LOWER LT INDICATIONS: Localized swelling, mass and lump, left lower limb TECHNIQUE: Real-time scanning was performed of the left lateral hip , with image documentation. COMPARISON: None. FINDINGS: A small subcutaneous calcification is noted within the region palpated by the patient which measures 0.5 x 0.3 x 0.5 cm. No other suspicious soft tissue lesions visualized. IMPRESSION: Small calcified subcutaneous mass which may represent a region of prior trauma. No sinister sonographic findings. However, if further characterization is warranted, CT or MRI of this region could be used. Dictated by: Jazmyne Mario M.D. on 03/30/2022 at 14:31 Approved by: Jazmyne Mario M.D. on 03/30/2022 at 14:32
--- NOTE | 2022-04-06 13:44 | PM.CALLCOV.1 ---
Call Coverage Note Note Date of Patient Contact: 04/06/22 Time of Patient Contact: 13:46 Narrative of Care Provided: attempt to call Erika with path results and plan for PET, onc consult. No answer, left message.
== END ==
PROVIDERS: Family Provider Family Medicine; PCP Family Medicine; Referring Provider Family Medicine; Visit Provider Family Medicine
DX: R22.42 Localized swelling, mass and lump, left lower limb (principal)
CPT/HCPCS: 76882

== ENCOUNTER 2022-04-09 22:24 | Emergency (ER) | payer BC, SELFPAY ==
[2022-04-09 22:35] VITALS: BP 147/67; PULSE 80; RESP 18; TEMP 36.6; O2SAT 96
--- NOTE | 2022-04-09 23:36 | ED.SKABFB ---
HPI - Skin/Abscess/Foreign Bdy General Chief complaint: Skin/Abscess/Foreign Body Stated complaint: Biopsy last week, Infected Time Seen by Provider: 04/09/22 23:36 Source: patient Mode of arrival: Ambulatory Limitations: no limitations History of Present Illness HPI narrative: 81-year-old female who 1 week ago underwent a biopsy of a mass on the right side of her neck. She is a follow-up beginning of next week to discuss the results of this. Earlier today when she got out of the shower she noticed some swelling and drainage from the right side of the incision site. Problem swallowing. No problems breathing. A large amount of purulent material was able to be expressed by nursing staff and a culture was obtained. Patient denies any fevers. No interventions prior to arrival. Related Data Home Medications Medication Instructions Recorded Confirmed diclofenac sodium 75 mg 75 mg PO DIRECTED 03/24/22 04/02/22 tablet,delayed release Previous Rx's Medication Instructions Recorded diclofenac sodium 75 mg See Rx Instructions .Route 10/06/21 tablet,delayed release .COMPLEX #60 tabs docusate sodium 100 mg capsule 100 mg PO BID #14 caps 03/31/22 (Colace) hydrocodone 5 mg-acetaminophen 325 1 tab PO Q4H PRN pain #14 tabs 03/31/22 mg tablet cyclobenzaprine 5 mg tablet 10 mg PO TID PRN muscle spasm #20 04/02/22 tabs zolpidem 5 mg tablet (Ambien) 5 mg PO BEDTIME PRN sleep #5 tabs 04/02/22 cephalexin 500 mg capsule 500 mg PO QID 5 days #20 caps 04/09/22 Allergies Allergy/AdvReac Type Severity Reaction Status Date / Time adhesive tape [ADHESIVE TAPE] Allergy Intermediate PLASTIC Verified 04/02/22 14:52 TAPE-RASH latex [LATEX] Allergy Intermediate RASH Verified 04/02/22 14:52 Review of Systems ENT Ears, Nose, Mouth, and Throat: Reports system reviewed and no additional complaints, except as documented Cardiovascular Cardiovascular: Reports system reviewed and no additional complaints, except as documented Respiratory Respiratory: Reports system reviewed and no additional complaints, except as documented Integumentary/Breasts Skin/Breast: Reports system reviewed and no additional complaints, except as documented Hematologic/Lymphatic On Anticoagulants: No Patient History Medical History Facet arthropathy, cervical Fractures (~2018) Measles (~1949) Vertigo (~2014) Vertigo Surgical History Anesthesia History of hip replacement (~2016) History of hysterectomy (~1966) Family History Father Cancer Brother Cancer Social History household members: spouse Smoking Status: Never smoker alcohol intake: current Smoking Status: Never smoker alcohol intake frequency: holidays/special occasions only Substance Use Type: does not use Exam Initial Vital Signs Initial Vital Signs: Vital Signs Temperature 97.9 F 04/09/22 22:35 Pulse Rate 80 04/09/22 22:35 Respiratory Rate 18 04/09/22 22:35 Blood Pressure 147/67 H 04/09/22 22:35 Pulse Oximetry 96 04/09/22 22:35 Oxygen Delivery Method 04/09/22 22:35 [facility] Head: normal to inspection and normocephalic Neck Other: Very large mass right-sided portion of neck. Resp Effort & Inspection: normal respiratory effort Skin Other: Some small amount of redness around a mass on the right side of the neck. There is also a small amount of purulent material draining from the area. Neuro General: patient alert, patient awake and moves all extremities Course Orders Ordered: ED Orders 04/09/22 22:45 Wound Culture and Gram Stain Stat Discontinued Medications Cephalexin HCl (Cephalexin 250 Mg Capsule) 500 mg PO NOW ONE Stop: 04/09/22 23:37 Last Admin: 04/09/22 23:44 Dose: 500 mg Documented By: AP Vital Signs Vital signs: Vital Signs - 8 hr 04/09/22 22:35 Temperature 97.9 F Pulse Rate 80 Respiratory Rate 18 Blood Pressure 147/67 H Pulse Oximetry 96 Oxygen Delivery Method Room Air MDM - Skin/Abscess/Foreign Bdy MDM Narrative Medical decision making narrative: Bedside ultrasound does not show much purulent material in the area however I did open the area that was draining a small amount with a 11 blade. Covered with a bandage. Will start on antibiotics. While the patient follow-up with her oncologist the beginning of next week to discuss the results of the biopsy. She was given return precautions. She expressed understanding and agreement. Discharge Plan Departure Patient Disposition: Home Clinical Impression: Post op infection Instructions: DI for Skin Abscess Activity Restrictions/Additional Instructions: Recommend that you keep all of your scheduled medical appointments. Take the antibiotics as directed. Return to the emergency department for any new or worsening symptoms. Prescriptions: New cephalexin 500 mg capsule 500 mg PO QID 5 Days Qty: 20 0RF No Action diclofenac sodium 75 mg tablet,delayed release (DR/EC) See Rx Instructions .ROUTE .COMPLEX Qty: 60 2RF Dose Instruction: TAKE 1 TABLET TWICE A DAY Rx Instructions: TAKE 1 TABLET TWICE A DAY hydrocodone-acetaminophen 5-325 mg tablet 1 tab PO Q4H PRN (Reason: pain) Qty: 14 0RF docusate sodium [Colace] 100 mg capsule 100 mg PO BID Qty: 14 0RF Rx Instructions: Take while taking Gravity for pain to prevent constipation. cyclobenzaprine 5 mg tablet 10 mg PO TID PRN (Reason: muscle spasm) Qty: 20 0RF zolpidem [Ambien] 5 mg tablet 5 mg PO BEDTIME PRN (Reason: sleep) Qty: 5 0RF diclofenac sodium 75 mg tablet,delayed release (DR/EC) 75 mg PO DIRECTED Referrals: Mika Tabor MD [Primary Care Provider] - Stand Alone Forms: Patient Portal/API
[2022-04-09] MEDS: cephALEXin 250 MG CAPSULE 500 MG PO (23:44)
== END 2022-04-09 23:55 | disposition home or self-care (01) ==
PROVIDERS: Emergency Provider Emergency Medicine; Family Provider Family Medicine; PCP Family Medicine
DX: T81.41XA Infection following a procedure, superficial incisional surgical site, initial encounter (principal)
CPT/HCPCS: 87070; 87075; 87077; 87147; 87186; 87205; 99283

== ENCOUNTER → 2022-04-14 12:24 | Outpatient (CLI) | payer BC, SELFPAY ==
--- NOTE | 2022-04-14 12:25 | DI.CT.S_ITS ---
PROCEDURE: CT CHEST ABD PEL W CON INDICATIONS: right neck cancer, unknown primary TECHNIQUE: After the administration of oral and intravenous contrast, axial sections acquired from the supraclavicular neck to the pubic symphysis. Coronal and sagittal reformats were performed. For radiation dose reduction, the following was used: automated exposure control, adjustment of mA and/or kV according to patient size. COMPARISON: None. FINDINGS: Image quality: Excellent. CHEST: Lower Neck: A heterogeneously enhancing right neck mass is partially visualized which extends into the upper right anterior chest wall. There is posterior displacement and narrowing of the central portion of the right subclavian artery. Thyroid: Unremarkable. Axillae: No enlarged lymph nodes. Chest Wall: Heterogeneously enhancing mass extends from the lower right neck in the region of the sternocleidomastoid litter into the right anterior chest wall. Lungs and Airways: A 1.0 cm mass is present at the lateral right lower lobe (series 3/image 211). Atelectasis is present at the right lung base. Scattered 3 and 4 mm pulmonary nodules are present at the right lung base. There is a enhancing left hilar mass which in compass is multiple segmental and subsegmental branches of the left lower lobe pulmonary artery. This measures approximately 2.7 x 5.6 cm in the axial plane. Patchy airspace opacities are present within the left lower lobe and lingula in addition to diffuse interlobular septal thickening. Pleura: No pneumothorax or pleural effusions. Heart: The heart is enlarged. No pericardial effusion. Thoracic Vessels: The aorta and pulmonary arteries demonstrate normal size. Mediastinum and [place]: There is extensive mediastinal adenopathy including a heterogeneously enhancing 2.9 cm pretracheal lymph node or mediastinal mass. Esophagus: No wall thickening. No hiatal hernia. ABDOMEN: Liver: Unremarkable. Gallbladder: Unremarkable. Biliary ducts: Unremarkable. Pancreas: Unremarkable. Spleen: Unremarkable. Adrenal Glands: Unremarkable. Kidneys and Ureters: Unremarkable. Stomach and Bowel: Stomach, small bowel loops, and colon are unremarkable. Peritoneum: No abnormal intraperitoneal fluid. No free air. Ventral Wall: No hernia. Abdominal Nodes: No retroperitoneal or mesenteric adenopathy by size criteria. Vessels: Aorta and inferior vena cava are normal in size. PELVIS: Pelvic Organs: Unremarkable. Bladder: Unremarkable. Pelvic Nodes: No enlarged lymph nodes. Miscellaneous: No inguinal hernias are seen. Bones: Unremarkable. IMPRESSION: 1. Large anterior right neck mass which extends into the right anterior chest wall as above. 2. 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 Left lower lung pulmonary radiopacities suggest a component of postobstructive infection. 3. Right 1.1 cm lower lobe mass suspicious for pulmonary metastasis. 4. Extensive mediastinal adenopathy as above. Dictated by: Jazmyne Mario M.D. on 04/14/2022 at 16:20 Approved by: Jazmyne Mario M.D. on 04/14/2022 at 16:29
--- NOTE | 2022-04-14 12:25 | DI.CT.S_ITS ---
PROCEDURE: CT SOFT TISSUE NECK W CON INDICATIONS: Neck mass TECHNIQUE: After the administration of intravenous contrast, 3.0 mm axial sections acquired from the skull base to the upper chest. Additional 1.5 mm axial sections acquired through the true vocal cords. 1 mm thick coronal reformats were generated. For radiation dose reduction, the following was used: automated exposure control. COMPARISON: [facility], CT, CT SOFT TISSUE NECK W CON, 03/10/2022, 10:11. [facility], CT, CT CHEST ABD PEL W CON, 04/14/2022, 14:08. FINDINGS: Image quality: Excellent. Neck spaces: The oropharynx, nasopharynx, and pharynx demonstrate no mucosal lesions. The pyriform sinuses, epiglottis, vallecular, and tongue base all appear normal. Lymph nodes: There is a right supraclavicular mass seen, with heterogeneous enhancement and irregularity that measures 6 x 5 cm in greatest axial dimension, with a craniocaudal extent of 5 cm. A mild amount of soft tissue gas can be seen along the superficial aspect of this mass. This mass has clearly increased in size compared to the 03/10/2022 CT examination. No definite additional enlarged lymph nodes are seen elsewhere within the neck. Vessels: Visualized vasculature appears patent. Mass effect can be seen upon the right jugular vein. Glands: The parotid and submandibular glands appear normal. Thyroid gland demonstrates no significant abnormality. Miscellaneous: Visualized brain and orbits appear unremarkable. Lung apices appear clear. Superficial soft tissues appear normal. Mild pleural thickening can be seen involving the Bones: No suspicious bony lesions. Visualized sinuses and mastoids appear unremarkable. Moderate to prominent cervical spine degenerative changes are seen. IMPRESSION: There is a 6 cm right supraclavicular mass seen, which has clearly increased in size compared to the recent prior CT examination dated 03/10/2022. This is attributed to an abnormal lymph node, although please correlate with known patient history. There is soft tissue gas seen along the superficial aspect of this mass. Please correlate with skin ulceration versus recent instrumentation/biopsy. Additional findings: Moderate to severe cervical spine degenerative change Dictated by: Federico Smallwood M.D. on 04/14/2022 at 14:31 Approved by: Federico Smallwood M.D. on 04/14/2022 at 14:35
== END ==
PROVIDERS: Family Provider Family Medicine; PCP Family Medicine; Referring Provider Surgery; Visit Provider Surgery
DX: C76.0 Malignant neoplasm of head, face and neck (principal); R22.1 Localized swelling, mass and lump, neck; R91.8 Other nonspecific abnormal finding of lung field; R59.0 Localized enlarged lymph nodes; I51.7 Cardiomegaly
CPT/HCPCS: 70491; 71260; 74177; Q9967

== ENCOUNTER → 2022-04-26 14:47 | Outpatient (CLI) | payer BC, SELFPAY ==
[2022-04-26 17:03] LABS: COVID19 -Nasal RAPID Negative (Negative)
== END ==
PROVIDERS: Family Provider Family Medicine; PCP Family Medicine; Visit Provider Surgery
DX: Z20.822 Contact with and (suspected) exposure to COVID-19 (principal); Z01.812 Encounter for preprocedural laboratory examination
CPT/HCPCS: 87635

== ENCOUNTER → 2022-04-26 14:52 | Outpatient (CLI) | payer BC, SELFPAY ==
--- NOTE | 2022-04-26 15:16 | DI.MRI.S_ITS ---
PROCEDURE: MR HEAD/BRAIN WO/W CON INDICATIONS: lung cance staging TECHNIQUE: Noncontrast axial T1 spin echo, axial T2 fast spin echo, sagittal and axial FLAIR, coronal T2 fast spin echo, axial gradient echo, axial diffusion and ADC through the brain. After the administration of contrast, axial and coronal and sagittal T1 spin echo with fat saturation through the brain. COMPARISON: [facility], MR, BRAIN WITH AND WITHOUT CONTRAS, 04/11/2008, 17:35. [facility], MR, MR HEAD/BRAIN WO/W CON, 07/10/2021, 12:43. FINDINGS: Image quality: Excellent. CSF spaces: Basal cisterns are patent. No extra-axial fluid collections. Ventricles are normal in size and shape. Brain: No midline shift. No intracranial bleeds or masses. No abnormal intracranial enhancement. There is cerebral volume loss for age. There is periventricular white matter chronic small vessel ischemic change. The brainstem appears normal. Diffusion-weighted images demonstrate no acute ischemic insults. No chronic ischemic insults. Normal intravascular flow voids are present. Skull and face: Calvarial marrow is normal in signal. Orbits appear normal. Note is made of bilateral lens replacements. Sinuses: Sinuses and mastoids appear clear. IMPRESSION: No masses or findings of abnormal enhancement can be seen to suggest intracranial metastatic disease. Additional findings: Brain parenchymal volume loss Chronic small vessel ischemic change Dictated by: Federioc Smallwood M.D. on 04/26/2022 at 15:57 Approved by: Federico Smallwood M.D. on 04/26/2022 at 15:59
== END ==
PROVIDERS: Family Provider Family Medicine; PCP Family Medicine; Referring Provider Internal Medicine Hematology & Oncology; Visit Provider Internal Medicine Hematology & Oncology
DX: C34.92 Malignant neoplasm of unspecified part of left bronchus or lung (principal)
CPT/HCPCS: 70553; A9579

== ENCOUNTER 2022-04-30 12:33 | Day surgery (SDC) | payer BC, SELFPAY ==
[2022-04-27 14:36] VITALS: BMI 17.2
[2022-04-30 12:58] VITALS: BP 151/92; PULSE 108; RESP 20; TEMP 36.8; O2SAT 100; BMI 16.4
[2022-04-30 13:17] LABS: COVID19 -Nasal RAPID Negative (Negative)
[2022-04-30] MEDS: LACTATED RINGERS 1,000 ML 100 ML IV (13:20)
--- NOTE | 2022-04-30 13:22 | SUR.PREOP ---
states that pt has not had a bowel movement in 3 days despite colace TID, OTC laxative, prunes, and OTC suppositories. Also noted that pt has lost additional 2 pounds in the last 2 days per the .
[2022-04-30] MEDS: OXYCODONE IR 5 MG TABLET PO (14:00)
--- NOTE | 2022-04-30 14:12 | DI.RAD.S_ITS ---
PROCEDURE: [place] GUIDED PICC PLACEMENT INDICATIONS: venous access for chemotherapy COMPARISON: [facility], CT, CT CHEST ABD PEL W CON, 04/14/2022, 14:08. [facility], CT, CT SOFT TISSUE NECK W CON, 04/14/2022, 14:08. FINDINGS: PICC was placed by the intravenous therapy team from the left side. Fluoroscopic spot film demonstrates the tip of PICC projecting to the area of azygos arch region of the superior vena cava. Right superior mediastinal soft tissue prominence again noted, as was seen during CT scanning recently performed. IMPRESSION: Tip of PICC projects to the area of azygos arch region of the superior vena cava. Right anterior mediastinal adenopathy is partially visualized, better seen by recent CT scanning. Dictated by: Albaro Wall M.D. on 04/30/2022 at 15:50 Approved by: Albaro Wall M.D. on 04/30/2022 at 15:53
--- NOTE | 2022-04-30 14:16 | SUR.PREOP ---
Dr Garcia notified of neck wound, constipation, and pain. Oxycodone given as ordered. Neck dressing changed by Andi Rudolph RN. Dr Garcia counseled to start on mirilax. Pt will have PICC inserted instead of port-a-cath.
--- NOTE | 2022-04-30 14:35 | SUR.PREOP ---
To DI for PICC line.
--- NOTE | 2022-04-30 14:42 | PM.CALLCOV.1 ---
Call Coverage Note Note Date of Patient Contact: 04/30/22 Time of Patient Contact: 14:42 Narrative of Care Provided: 81F with metastatic lung ca with an ulcerated mass of distant disease involving the right neck. Would not be advisable to place port a cath given the proximity to this open presumably infected wound. Will instead place PICC.
[2022-04-30 15:50] VITALS: BP 127/77; PULSE 98; RESP 18; TEMP 37.2; O2SAT 92
--- NOTE | 2022-04-30 15:58 | SUR.PHASEII ---
pt came back from [facility] and Shana Cantu RN came and talked to her about her PICC line. Pt has appointment for dressing change 05/01/22 at 1130. Pt states she understands. Pt states she is ready to go home. at bedside. No distress noted. Pain at level a 3. Pt states she can tolerate that. Pt states she is constipated and RN went over things to do for constipation.
== END 2022-04-30 16:04 | disposition home or self-care (01) ==
PROVIDERS: Surgery; Family Provider Family Medicine; PCP Family Medicine; Referring Provider Surgery; Visit Provider Surgery
DX: C34.92 Malignant neoplasm of unspecified part of left bronchus or lung (principal); I87.2 Venous insufficiency (chronic) (peripheral); Z20.822 Contact with and (suspected) exposure to COVID-19
CPT/HCPCS: 36573; 82962; 87635

== ENCOUNTER 2022-05-03 09:01 | Inpatient (IN) | payer MEDICARE, BC, SELFPAY ==
[2022-05-03] VITALS (24 sets, daily range): BP systolic 105–180; BP diastolic 71–98; PULSE 87–94; RESP 17–30; TEMP 36.8–38.1; O2SAT 94–97; BMI 17.2
--- NOTE | 2022-05-03 09:31 | ED_ITS ---
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 Patient had a fall last night. She states she got up in the middle of the night to go to the bathroom she was off balance and tripped and fell. She states she did her face on the carpet. She has rug burn on her forehead nose. Patient states she didn't want to awaken her up so she laid on the floor for a couple hours and then managed to get herself off all floor independently. Patient's has had decreased appetite and increasing weakness she is had 3 falls in the past month. Patient denies fevers or chills. No chest pain or shortness of breath worse than her normal. Patient denies any nausea or vomiting. She is had constipation but did recently have a bowel movement. Both her and her states she is taking oxycodone and they att ribute her constipation to that. Patient states she took oxycodone 5 mg prior to arrival which has been adequate for any pain. She is been having persistent severe shoulder pain longstanding during her workup for her cancer. She denies any new numbness, tingling or weakness. Her states she is taking minimal food intake and he is appreciated she is getting increasingly weak. She had a PICC line placed earlier in the week she was supposed to have a port but they were concerned that there was localized infection where her biopsy for her supraclavicular notice and so a left upper extremity PICC line was placed instead. There is a possibility she is supposed to start treatment in the next day or 2 but family states they have not told they are starting. She is prior hip replacement, she is taking medication for pain, dyslipidemia and help with bowel movements. Remote tobacco use 50 years ago, no alcohol or illicit. Dr. Tabor's her primary care. Dr. Valencia is her oncologist locally. Patient is accompanied by her . Patient [facility]. Related Data Home Medications Medication Instructions Recorded Confirmed All Day Calcium 600 mg PO DAILY 04/26/22 05/03/22 Estroven 1 tab PO DAILY 04/26/22 05/03/22 ascorbic acid (vitamin C) 1,000 mg 1,000 mg PO DAILY 04/26/22 05/03/22 capsule bacillus coagulans-inulin 1 1 cap PO DAILY 04/26/22 05/03/22 billion cell-250 mg capsule (Probiotic with Prebiotic) cholecalciferol (vitamin D3) 50 50 mcg PO DAILY 04/26/22 05/03/22 mcg (2,000 unit) tablet diazepam 5 mg tablet 5 mg PO BEDTIME PRN Sleep 04/26/22 05/03/22 magnesium 200 mg tablet 400 mg PO DAILY 04/26/22 05/03/22 melatonin 5 mg tablet 5 mg PO BEDTIME PRN Sleep 04/26/22 05/03/22 pravastatin 40 mg tablet 40 mg PO DAILY 04/26/22 05/03/22 vitamin B complex (B 1 tab PO DAILY 04/26/22 05/03/22 Complex-Vitamin B12 tablet) Dulcolax Stool Softener (dss) 1 tab PO TID 04/30/22 05/03/22 montelukast 10 mg tablet 10 mg PO DAILY 05/03/22 05/03/22 Allergies Allergy/AdvReac Type Severity Reaction Status Date / Time adhesive tape [ADHESIVE TAPE] Allergy Intermediate PLASTIC Verified 04/30/22 12:52 TAPE-RASH latex [LATEX] Allergy Intermediate RASH Verified 04/30/22 12:52 Review of Systems Review of Systems ROS Unobtainable: All systems reviewed & are unremarkable except as noted in HPI and below Patient History Medical History Facet arthropathy, cervical Fractures (~2017) HLD (hyperlipidemia) Measles (~1949) Staph aureus infection (04/09/22) Vertigo (~2013) Vertigo Surgical History Anesthesia History of biopsy (03/24/22) History of hip replacement (~2016) History of hysterectomy (~1966) Family History Father Cancer Brother Melanoma Mother Lung cancer Social History household members: spouse Smoking Status: Former smoker alcohol intake: current substance use type: does not use Smoking Status: Never smoker alcohol intake frequency: holidays/special occasions only Substance Use Type: does not use Exam Narrative Exam Narrative: GEN: Thin elderly female, alert and oriented x 3, patient appears to be in mild distress. HEENT: Atraumatic, pupils are equal round reactive to light, extraocular movements are intact, nares are clear, TMs are clear with no fluid, there is no conjunctival pallor. Throat is clear without any exudates, erythema, tonsillar enlargement or uvular deviation, patient has significant large grape fruit or larger sized node at her right supraclavicular region there is an open wound with some subcutaneous tissue exposed. It is draining some serosanguineous no active purulent fluid appreciated. No foul odor. There is some slight erythema at the site but not tracking across her chest. HEART: Regular rate and rhythm without murmur, clicks, rubs. pulses are equal in upper and lower extremities LUNGS:Lungs clear to auscultation, no wheezes, rales, crackles, chest moves symmetrically, mild tachypnea. ABD:bowel sounds normal, soft, non-tender, no guarding, rebound, rigidity, no masses noted, no hepatosplenomegaly :No CVA tenderness MSCL: Non-tender extremities, patient has full range of motion. No muscle atrophy, muscles strength 5/5 upper and lower extremities, full range of motion NEURO:CN 2-12 intact, sensation normal. Initial Vital Signs Initial Vital Signs: Vital Signs Temperature 98.3 F 05/03/22 09:23 Pulse Rate 94 H 05/03/22 09:23 Respiratory Rate 18 05/03/22 09:23 Blood Pressure 105/71 05/03/22 09:23 Pulse Oximetry 95 05/03/22 09:23 Oxygen Delivery Method 05/03/22 09:23 Course Orders Ordered: Acetaminophen (Acetaminophen 325 Mg Tablet) 650 mg PO Q6H PRN PRN Reason: Fever/Mild Pain (1-3) Hydrocodone Bitart/Acetaminophen (Hydrocodone/Acet 5/325 Tablet) 1 tab PO Q4H PRN PRN Reason: Pain, Moderate (4-6) Al Hydrox/Mg Hydrox/Simethicone (Mag Hydrox/Alum/Simeth 30 Ml Udc) 30 ml PO Q6HR PRN PRN Reason: Dyspepsia Albuterol/Ipratropium (Albuterol/Ipratropium 3 Ml Ampul) 3 ml INH RTQ4HR PRN PRN Reason: Shortness Of Breath Ascorbic Acid (Ascorbic Acid 500 Mg Tablet) 1,000 mg PO DAILY [facility] Calcium Carbonate (Calcium Carbonate 500 Mg Tab) 1,000 mg PO Q4HR PRN PRN Reason: Dyspepsia Calcium Carbonate (Calcium Carbonate 600 Mg Tablet) 600 mg PO DAILY [facility] Diazepam (Diazepam 5 Mg Tablet) 5 mg PO BEDTIME PRN PRN Reason: Sleep Docusate Sodium (Docusate 100 Mg Capsule) 100 mg PO BID [facility] Enoxaparin Sodium (Enoxaparin 40 Mg/0.4 Ml Syringe) 40 mg SUBCUT DAILY [facility] Heparin Sodium (Porcine) (Heparin Flush (Cl/Picc/Mid-Line) 50 Unit/5 Ml Syringe) 50 unit IV BID [facility] Hydromorphone HCl (Hydromorphone 1 Mg Inj) 1 mg IV Q4H PRN PRN Reason: Pain, Severe (7-10) Sodium Chloride (Normal Saline 0.9%) 1,000 mls @ 150 mls/hr IV CONT [facility] Last Admin: 05/03/22 13:46 Dose: 150 mls/hr Documented By: BR Sodium Chloride (Normal Saline 0.9%) 250 mls @ 21 mls/hr IV Q24H PRN PRN Reason: Flush Piperacillin Sod/Tazobactam (Sod 3.375 gm/ Sodium Chloride) 100 mls @ 25 mls/hr IV Q8H [facility] Last Admin: 05/03/22 19:22 Dose: 25 mls/hr Documented By: BR Vancomycin HCl (Vancomycin) 750 mg in 150 mls @ 150 mls/hr IV Q12H [facility] Ibuprofen (Ibuprofen 600 Mg Tablet) 600 mg PO Q6H PRN PRN Reason: Fever/Mild Pain (1-3) Magnesium Oxide (Magnesium Oxide 400 Mg Tablet) 400 mg PO DAILY [facility] Melatonin (Melatonin 3 Mg Tablet) 6 mg PO BEDTIME PRN PRN Reason: Sleep Montelukast Sodium (Montelukast 10 Mg Tablet) 10 mg PO DAILY [facility] Naloxone HCl (Naloxone 0.4 Mg/Ml Vial) 0.2 mg IV Q2MIN PRN PRN Reason: Opiate Reversal Oxycodone HCl (Oxycodone Ir 5 Mg Tablet) 5 mg PO Q3HR PRN PRN Reason: Pain, Moderate (4-6) Last Admin: 05/03/22 11:17 Dose: 5 mg Documented By: RB Oxycodone HCl (Oxycodone Ir 10 Mg Tablet) 10 mg PO Q3H PRN PRN Reason: Pain, Severe (7-10) Last Admin: 05/03/22 15:50 Dose: 10 mg Documented By: BR Pravastatin Sodium (Pravastatin 20 Mg Tablet) 40 mg PO DAILY [facility] Sodium Chloride (Sodium Chloride 0.9% Flush) 10 ml IV PRN PRN PRN Reason: Flush Last Admin: 05/03/22 17:13 Dose: 10 ml Documented By: BR Sodium Chloride (Sodium Chloride 0.9% Flush) 10 ml IV BID [facility] Vancomycin HCl (Vancomycin Trough) 1 request [facility] 0130 [facility] Stop: 05/05/22 01:31 Vancomycin HCl (Vancomycin Peak) 1 request [facility] 0400 [facility] Stop: 05/05/22 04:01 Vitamin D (Cholecalciferol (Vitamin D3) 1,000 Unit Tablet) 2,000 unit PO DAILY [facility] Discontinued Medications Heparin Sodium (Porcine) (Heparin Flush (Cl/Picc/Mid-Line) 50 Unit/5 Ml Syringe) 50 unit IV NOW ONE Stop: 05/03/22 16:05 Last Admin: 05/03/22 17:13 Dose: 50 unit Documented By: BR Sodium Chloride (Normal Saline 0.9%) 1,000 mls @ 1,000 mls/hr IV BOLUS ONE Stop: 05/03/22 10:55 Last Infusion: 05/03/22 11:48 Dose: 0 mls/hr Documented By: Admin: 05/03/22 10:44 Dose: 1,000 mls/hr Documented By: RB Piperacillin Sod/Tazobactam (Sod 4.5 gm/ Sodium Chloride) 100 mls @ 200 mls/hr IV NOW ONE Stop: 05/03/22 11:49 Last Admin: 05/03/22 13:46 Dose: 200 mls/hr Documented By: BR Vancomycin HCl (Vancomycin) 1,000 mg in 200 mls @ 200 mls/hr IV NOW ONE Stop: 05/03/22 12:47 Last Admin: 05/03/22 13:49 Dose: 200 mls/hr Documented By: BR Non-Formulary Medication (Bacillus Coagulans-Inulin [Probiotic With Prebiotic]) 1 cap PO DAILY MIESHA Non-Formulary Medication (Dulcolax Stool Softener (Dss)) 1 tab PO TID MIESHA Non-Formulary Medication (Estroven) 1 tab PO DAILY MIESHA Non-Formulary Medication (Vitamin B Complex [B Complex-Vitamin B12]) 1 tab PO DAILY MIESHA Vancomycin HCl ([facility]com[facility] Per Pharmacy) [facility] Stop: 05/03/22 18:24 Consultations Consultation #1: Dr. Allison, accepts for admission will be 1 or 2 hours. Plan for IV antibiotics, fluids. Time: 12:05 Consultation #2: Dr. Valencia, oncology: H patient was not supposed to start treatment today. He states she has been having difficulty with the area healing and unlikely to heal easily until she starts treatment but because of in potential infection may thinks more complicated for her. Agrees with current plan. Time: 12:49 Vital Signs Vital signs: Vital Signs - 8 hr 05/03/22 11:45 05/03/22 12:00 05/03/22 12:01 Pulse Rate 87 92 H 92 H Respiratory Rate 19 20 28 H Blood Pressure Pulse Oximetry 95 95 94 05/03/22 12:01 Pulse Rate Respiratory Rate Blood Pressure 180/84 H Pulse Oximetry MDM - Fall Lab Data 05/03/22 10:28 05/03/22 10:28 Labs: Lab Results 05/03/22 05/03/22 05/03/22 Range/Units 10:28 10:28 10:28 WBC 25.8 H (4.5-11.0) X10^3/uL RBC 3.97 L (4.0-5.2) X10^6/uL Hgb 12.0 (12.0-16.0) g/dL Hct 36.4 (36-46) % MCV 91.7 (80-100) fL MCH 30.3 (26-34) PG MCHC 33.1 (30-36) % RDW 14.5 (11.6-14.8) % Plt Count 252 (150-400) X10^3/uL Neut % (Auto) Not Reportable Lymph % (Auto) Not Reportable Sharkey % (Auto) Not Reportable Eos % (Auto) Not Reportable Baso % (Auto) Not Reportable Lymph # (Auto) Not Reportable Sharkey # (Auto) Not Reportable Baso # (Auto) Not Reportable Total Counted 100 Seg Neutrophils % 69.0 (38-70) % Band Neutrophils % 12.0 H (3-7) % Lymphocytes % (Manual) 1.0 L (25-45) % Monocytes % (Manual) 13.0 H (2-11) % Eosinophils % (Manual) 3.0 (2-4) % Basophils % (Manual) 2.0 H (0-1) % Neutrophils # (Manual) 70198 H (4572-5019) /uL RBC Morphology Normal morphology PT 14.7 H (10.1-12.7) SECONDS INR 1.3 (0.9-1.3) APTT 26 (26-36) SECONDS Sodium 133 L (137-145) mmol/L Potassium 4.1 (3.4-5.1) mmol/L Chloride 94 L (98-107) mmol/L Carbon Dioxide 31 (22-32) mmol/L BUN 18 H (7-17) mg/dL Creatinine 0.65 (0.52-1.04) mg/dL Estimated GFR > 60 (>60) mL/min BUN/Creatinine Ratio 27.7 H (6-22) Glucose 122 H (80-110) mg/dL Lactate (0.7-2.1) mmol/L Calcium 9.0 (8.4-10.2) mg/dL Total Bilirubin 0.4 (0.2-1.3) mg/dL AST 17 (14-36) IU/L ALT 22 (<35) IU/L Alkaline Phosphatase 89 (38-126) U/L Total Creatine Kinase 23 L (30-135) U/L CK-MB (CK-2) TNP CK-MB (CK-2) Rel Index TNP Troponin I 0.028 (0.01-0.034) ng/mL NT-Pro-B Natriuret Pep 2610 H (<450) pg/mL Total Protein 6.4 (6.3-8.2) g/dL Albumin 3.3 L (3.5-5.0) g/dL Globulin 3.1 (1.7-4.1) g/dL Albumin/Globulin Ratio 1.1 (1.0-2.8) Lipase 15 L (23-300) U/L Procalcitonin (<0.5) ng/mL 05/03/22 05/03/22 Range/Units 10:28 10:28 WBC (4.5-11.0) X10^3/uL RBC (4.0-5.2) X10^6/uL Hgb (12.0-16.0) g/dL Hct (36-46) % MCV (80-100) fL MCH (26-34) PG MCHC (30-36) % RDW (11.6-14.8) % Plt Count (150-400) X10^3/uL Neut % (Auto) Lymph % (Auto) Sharkey % (Auto) Eos % (Auto) Baso % (Auto) Lymph # (Auto) Sharkey # (Auto) Baso # (Auto) Total Counted Seg Neutrophils % (38-70) % Band Neutrophils % (3-7) % Lymphocytes % (Manual) (25-45) % Monocytes % (Manual) (2-11) % Eosinophils % (Manual) (2-4) % Basophils % (Manual) (0-1) % Neutrophils # (Manual) (5352-5986) /uL RBC Morphology PT (10.1-12.7) SECONDS INR (0.9-1.3) APTT (26-36) SECONDS Sodium (137-145) mmol/L Potassium (3.4-5.1) mmol/L Chloride (98-107) mmol/L Carbon Dioxide (22-32) mmol/L BUN (7-17) mg/dL Creatinine (0.52-1.04) mg/dL Estimated GFR (>60) mL/min BUN/Creatinine Ratio (6-22) Glucose (80-110) mg/dL Lactate 2.6 H (0.7-2.1) mmol/L Calcium (8.4-10.2) mg/dL Total Bilirubin (0.2-1.3) mg/dL AST (14-36) IU/L ALT (<35) IU/L Alkaline Phosphatase (38-126) U/L Total Creatine Kinase (30-135) U/L CK-MB (CK-2) CK-MB (CK-2) Rel Index Troponin I (0.01-0.034) ng/mL NT-Pro-B Natriuret Pep (<450) pg/mL Total Protein (6.3-8.2) g/dL Albumin (3.5-5.0) g/dL Globulin (1.7-4.1) g/dL Albumin/Globulin Ratio (1.0-2.8) Lipase (23-300) U/L Procalcitonin 0.19 (<0.5) ng/mL Imaging Data CT scan - head: Radiologist's Impression: [address] [address] [address] Scan Report Signed Patient: Erika Patel MR#: [id number] : 1940 Acct:[id number] Age/Sex: 81 / F Date of Service: 05/03/22 Loc: ED Accession Number: [id number] ?? Procedure: CT head/brain wo con Ordering Provider: Kim Vanegas D.O. PROCEDURE:? CT HEAD/BRAIN WO CON ? INDICATIONS:? fall, known ca ? TECHNIQUE:? Noncontrast 4.5 mm thick angled axial sections acquired from the foramen magnum to the vertex, with coronal and sagittal reformats.? For radiation dose reduction, the following was used:? automated exposure control, adjustment of mA and/or kV according to patient size.? ? COMPARISON:? [facility], MR, MR HEAD/BRAIN WO/W CON, 04/26/2022, 15:03. ? FINDINGS:? Image quality:? Excellent.? ? CSF spaces:? Basal cisterns are patent.? No extra-axial fluid collections.? The ventricles are symmetric in size and shape.? ? Brain:? No intracranial bleeds or masses.? There is cerebral volume loss for age , with resultant ventricular and sulcal prominence.? There are periventricular and deep white matter chronic small vessel ischemic changes.? There is intracranial internal carotid artery atherosclerosis.? ? Skull and face:? There is mild right frontal soft tissue swelling.? Calvarium and visualized facial bones appear intact, without suspicious lesions.? ? Sinuses:? Visualized sinuses and mastoids are clear.? ? IMPRESSION:? ? 1. No acute intracranial findings. ? 2. Mild right frontal soft tissue swelling without underlying calvarial abnormality. ? 3. Findings likely associated with chronic microvascular ischemic change.? ? ? Dictated by: Jazmyne Mario M.D. on 05/03/2022 at 10:30 ? ? Approved by: Jazmyne Mario M.D. on 05/03/2022 at 10:32?? Chest x-ray: Radiologist's Impression: [address] [address] XRay Report Signed Patient: Erika Patel MR#: [id number] : 1940 Acct:[id number] Age/Sex: 81 / F Date of Service: 05/03/22 Loc: ED Accession Number: [id number] ?? Procedure: XR chest 1V Ordering Provider: Kim Vanegas D.O. PROCEDURE:? XR CHEST 1V ? INDICATIONS:? fall, +lung ca, large supraclavicular nodule ? TECHNIQUE:? One view of the chest was acquired.? ? COMPARISON:? [facility], CT, CT CHEST ABD PEL W CON, 04/14/2022, 14:08.? [facility], CR, XR CHEST 2V, 03/10/2022, 11:25. ? FINDINGS:? ? Surgical changes and devices:? There is a left PICC, the tip of which is projected over the confluence of the brachiocephalic veins. ? Lungs and pleura:? There is elevation of the right hemidiaphragm, which is new when compared with the study dated March 10, 2022. Diffuse interstitial opacities are present throughout the left mid and lower lung.? ? Mediastinum:? There is widening of the mediastinum bilaterally consistent with extensive mediastinal and hilar adenopathy.? Findings are consistent with the CT of the chest dated April 14, 2022. Left hilar mass is also redemonstrated.? ? Bones and chest wall:? No suspicious bony lesions.? Overlying soft tissues appear unremarkable.? ? IMPRESSION:? ? 1. Interstitial radiopacities within the left mid and lower lung suspicious for postobstructive pneumonia.? Findings are unchanged from the CT dated April 14, 2022. ? 2. Hilar and mediastinal adenopathy and left hilar mass redemonstrated.? ? 3. No new acute radiographic findings.? ? Dictated by: Jazmyne Mario M.D. on 05/03/2022 at 10:26 ? ? Approved by: Jazmyne Mario M.D. on 05/03/2022 at 10:29?? ECG Data Attestation: I personally reviewed and interpreted this ECG as follows: Interpretation: Sinus rhythm with PVCs, incomplete right bundle, left anterior fascicular, LVH. Rate of 91 IA 132 QRS of 104 and QTC 440. Occasional PVCs. MDM Narrative Medical decision making narrative: This is an 81-year-old female with known lung/head and neck cancer who had a ground level fall last night likely mechanical but patient has had some increasing weakness secondary to her cancer diagnosis and decreased oral intake. Patient states she is had persistent drainage and does have signs of infection over the site of her biopsy over a quite large supraclavicular node. She states she is been told it will not heal until she starts treatment. Patient has a white count is trending upwards over the past month to 20 and then 25 today, patient's lactate slightly elevated, heart rates in the 90s. She does have a bandemia of 12. Patient's INR is 1.5 sodium is 133 potassium 4 1 with BUN of 18 normal renal function, glucose of 122 lactate was 2.6 after fluids is 1.2 LFTs are normal be [employer] is 2600 with a troponin of 0.028 and a negative procalcitonin. Patient is COVID negative. Because of falls and no cancer diagnosis head CT was obtained no obvious mass, chest x-ray interstitial radiopacities left and mid lower lung suspicious for postobstructive pneumonia unchanged from CT on April 14 with hilar mass and mediastinal lymphadenopathy. Patient also has a left PICC line in place. Discussed with Dr. Allison, who accepts for infection/cellulitis for IV antibiotics, fluids and discussed will update oncology. I spoke with Dr. Osman, notes patient is not scheduled to start treatment in the next couple days and that this will likely complicate her treatment as well. Agrees with current plan. Discharge Plan Departure Patient Disposition: Admitted As Inpatient Clinical Impression: Cellulitis of neck, Lung cancer Admit Date/Time: 05/03/22 12:06 Admit Provider: Jonny Allison
--- NOTE | 2022-05-03 09:56 | DI.CT.S_ITS ---
PROCEDURE: CT HEAD/BRAIN WO CON INDICATIONS: fall, known ca TECHNIQUE: Noncontrast 4.5 mm thick angled axial sections acquired from the foramen magnum to the vertex, with coronal and sagittal reformats. For radiation dose reduction, the following was used: automated exposure control, adjustment of mA and/or kV according to patient size. COMPARISON: [facility], , MR HEAD/BRAIN WO/W CON, 04/26/2022, 15:03. FINDINGS: Image quality: Excellent. CSF spaces: Basal cisterns are patent. No extra-axial fluid collections. The ventricles are symmetric in size and shape. Brain: No intracranial bleeds or masses. There is cerebral volume loss for age, with resultant ventricular and sulcal prominence. There are periventricular and deep white matter chronic small vessel ischemic changes. There is intracranial internal carotid artery atherosclerosis. Skull and face: There is mild right frontal soft tissue swelling. Calvarium and visualized facial bones appear intact, without suspicious lesions. Sinuses: Visualized sinuses and mastoids are clear. IMPRESSION: 1. No acute intracranial findings. 2. Mild right frontal soft tissue swelling without underlying calvarial abnormality. 3. Findings likely associated with chronic microvascular ischemic change. Dictated by: Jazmyne Mario M.D. on 05/03/2022 at 10:30 Approved by: Jazmyne Mario M.D. on 05/03/2022 at 10:32
--- NOTE | 2022-05-03 09:57 | DI.RAD.S_ITS ---
PROCEDURE: XR CHEST 1V INDICATIONS: fall, +lung ca, large supraclavicular nodule TECHNIQUE: One view of the chest was acquired. COMPARISON: [facility], CT, CT CHEST ABD PEL W CON, 04/14/2022, 14:08. [facility], CR, XR CHEST 2V, 03/10/2022, 11:25. FINDINGS: Surgical changes and devices: There is a left PICC, the tip of which is projected over the confluence of the brachiocephalic veins. Lungs and pleura: There is elevation of the right hemidiaphragm, which is new when compared with the study dated March 10, 2022. Diffuse interstitial opacities are present throughout the left mid and lower lung. Mediastinum: There is widening of the mediastinum bilaterally consistent with extensive mediastinal and hilar adenopathy. Findings are consistent with the CT of the chest dated April 14, 2022. Left hilar mass is also redemonstrated. Bones and chest wall: No suspicious bony lesions. Overlying soft tissues appear unremarkable. IMPRESSION: 1. Interstitial radiopacities within the left mid and lower lung suspicious for postobstructive pneumonia. Findings are unchanged from the CT dated April 14, 2022. 2. Hilar and mediastinal adenopathy and left hilar mass redemonstrated. 3. No new acute radiographic findings. Dictated by: Jazmyne Mario M.D. on 05/03/2022 at 10:26 Approved by: Jazmyne Mario M.D. on 05/03/2022 at 10:29
[2022-05-03] MEDS: SODIUM CHLORIDE 0.9% 1,000 ML 1000 ML IV (10:44)
[2022-05-03 10:47] LABS: Hematocrit 36.4 % (36-46); Mean Corpuscular HGB Conc 33.1 % (30-36); Mean Corpuscular Hemoglobin 30.3 PG (26-34); Mean Corpuscular Volume 91.7 fL (80-100); Platelet Count 252 X10^3/uL (150-400); Red Blood Cell Count 3.97 X10^6/uL (4.0-5.2); Red Cell Distribution Width 14.5 % (11.6-14.8); White Blood Cell Count 25.8 X10^3/uL (4.5-11.0)
[2022-05-03 10:48] LABS: Add Manual Diff / Slide Review YES
[2022-05-03 10:57] LABS: INR 1.3 (0.9-1.3); Prothrombin Time 14.7 SECONDS (10.1-12.7)
[2022-05-03 11:00] LABS: PTT Partial Thromboplastin Tim 26 SECONDS (26-36)
[2022-05-03 11:03] LABS: Alanine Aminotransferase 22 IU/L (<35); Albumin 3.3 g/dL (3.5-5.0); Albumin Globulin Ratio 1.1 (1.0-2.8); Alkaline Phosphatase 89 U/L (38-126); Aspartate Aminotransferase 17 IU/L (14-36); BUN Creatinine Ratio 27.7 (6-22); Bilirubin Total 0.4 mg/dL (0.2-1.3); Blood Urea Nitrogen 18 mg/dL (7-17); Carbon Dioxide 31 mmol/L (22-32); Chloride 94 mmol/L (98-107); Creatine Kinase 23 U/L (30-135); Estimated Glomerular Filt Rate > 60 mL/min (>60); Globulin 3.1 g/dL (1.7-4.1); Glucose 122 mg/dL (80-110); HEMOLYSIS < 15 (0-50); Lipase 15 U/L (23-300); Potassium 4.1 mmol/L (3.4-5.1); Sodium 133 mmol/L (137-145); Total Protein 6.4 g/dL (6.3-8.2)
[2022-05-03 11:04] LABS: Lactate (Lactic Acid) 2.6 mmol/L (0.7-2.1)
[2022-05-03 11:10] LABS: Neutrophils Absolute Manual 20898 /uL (3000-5900); RBC Morphology Normal Morphology; Total Cells Counted 100
[2022-05-03 11:16] LABS: NT-proBNP (BNP-Adult 18+) 2610 pg/mL (<450); Troponin I 0.028 ng/mL (0.01-0.034)
[2022-05-03] MEDS: OXYCODONE IR 5 MG TABLET PO ×2 (11:17→23:07)
[2022-05-03 11:20] LABS: Procalcitonin 0.19 ng/mL (<0.5)
[2022-05-03 12:38] LABS: Reflexed Lactate in 2 Hours Y
[2022-05-03 13:17] LABS: Lactate 2HR (Lactic Acid Rflx) 1.2 mmol/L (0.7-2.1)
[2022-05-03 13:43] LABS: COVID19 -Nasal RAPID Negative (Negative)
[2022-05-03] MEDS: SODIUM CHLORIDE 0.9% 1,000 ML 150 ML IV ×2 (13:46→23:06)
[2022-05-03] MEDS: PIPERACILLIN/TAZO 4.5 GM in SODIUM CHLORIDE 0.9% 100 ML IV (13:46)
[2022-05-03] MEDS: VANCOMYCIN 1,000 MG/200 ML PIGGYBACK 200 MG IV (13:49)
--- NOTE | 2022-05-03 14:28 | PM.HP.1 ---
History of Present Illness History of Present Illness Date Patient Seen: 05/03/22 Time Patient Seen: 12:50 Chief complaint: fell face down on floor last night Narrative: CC: infected lymph node, weakness Pt presents via ED for weakness and GLF in setting of nonhealing R supraclavicular lymphadenopathy biopsy site which does appear grossly infected today. It had been seen in ED previously with an attempt to treat using cephalexin. However, Darrel at bedside is concerned that it has not been improving and she has been growing weaker and weaker. She has been getting worked up by oncology Dr. Valencia for the LN and has a PICC placed with plans to begin some type of chemo today as outpatient. Apart from the lymph node site which seems to be radiating pain to her R upper back, she denies any other issues. Endorses hunger. Patient History Medical History Facet arthropathy, cervical Fractures (~2017) HLD (hyperlipidemia) Measles (~194) Staph aureus infection (04/09/22) Vertigo (~2013) Vertigo Surgical History Anesthesia History of biopsy (03/24/22) History of hip replacement (~2016) History of hysterectomy (~1966) Family & Social History Family History Father Cancer Brother Melanoma Mother Lung cancer Social History: household members spouse Prior Living Arrangements House Safety & Behavioral: Feels Safe in Current Yes Environment Been Physically Hurt or No Threatened By a Person Tobacco & Substance use: Smoking Status Former smoker alcohol intake current alcohol intake frequency holiday/special occasion Substance Use Type does not use Meds Home Medications and Allergies Home Medications Medication Instructions Recorded Confirmed Type All Day Calcium 600 mg PO DAILY 04/26/22 05/03/22 History Estroven 1 tab PO DAILY 04/26/22 05/03/22 History ascorbic acid (vitamin C) 1,000 mg 1,000 mg PO DAILY 04/26/22 05/03/22 History capsule bacillus coagulans-inulin 1 1 cap PO DAILY 04/26/22 05/03/22 History billion cell-250 mg capsule (Probiotic with Prebiotic) cholecalciferol (vitamin D3) 50 50 mcg PO DAILY 04/26/22 05/03/22 History mcg (2,000 unit) tablet diazepam 5 mg tablet 5 mg PO BEDTIME PRN Sleep 04/26/22 05/03/22 History magnesium 200 mg tablet 400 mg PO DAILY 04/26/22 05/03/22 History melatonin 5 mg tablet 5 mg PO BEDTIME PRN Sleep 04/26/22 05/03/22 History pravastatin 40 mg tablet 40 mg PO DAILY 04/26/22 05/03/22 History vitamin B complex (B 1 tab PO DAILY 04/26/22 05/03/22 History Complex-Vitamin B12 tablet) Dulcolax Stool Softener (dss) 1 tab PO TID 04/30/22 05/03/22 History montelukast 10 mg tablet 10 mg PO DAILY 05/03/22 05/03/22 History Allergies Allergy/AdvReac Type Severity Reaction Status Date / Time adhesive tape [ADHESIVE TAPE] Allergy Intermediate PLASTIC Verified 04/30/22 12:52 TAPE-RASH latex [LATEX] Allergy Intermediate RASH Verified 04/30/22 12:52 Review of Systems Review of Systems Narrative: all systems reviewed and negative except as otherwise documented in HPI Exam Vital Signs (past 8 hours): - 05/03/22 09:23 05/03/22 09:39 05/03/22 09:45 Temperature 98.3 F Pulse Rate 94 H 92 H 90 Respiratory Rate 18 26 H Blood Pressure 105/71 Pulse Oximetry 95 97 97 Oxygen Delivery Method Room Air Oxygen Flow Rate 05/03/22 10:00 05/03/22 10:00 05/03/22 10:13 Temperature Pulse Rate 90 Respiratory Rate 27 H Blood Pressure 126/81 134/78 Pulse Oximetry 96 Oxygen Delivery Method Oxygen Flow Rate 05/03/22 10:13 05/03/22 10:15 05/03/22 10:30 Temperature Pulse Rate 93 H 92 H Respiratory Rate 30 H 29 H Blood Pressure 134/78 Pulse Oximetry 97 96 Oxygen Delivery Method Oxygen Flow Rate 05/03/22 10:30 05/03/22 10:45 05/03/22 11:00 Temperature Pulse Rate 91 H 92 H 90 Respiratory Rate 23 Blood Pressure Pulse Oximetry 96 97 96 Oxygen Delivery Method Oxygen Flow Rate 05/03/22 11:15 05/03/22 11:30 05/03/22 11:30 Temperature Pulse Rate 87 87 Respiratory Rate 27 H 29 H Blood Pressure 134/98 H Pulse Oximetry 96 96 Oxygen Delivery Method Oxygen Flow Rate 05/03/22 11:45 05/03/22 12:00 05/03/22 12:01 Temperature Pulse Rate 87 92 H 92 H Respiratory Rate 19 20 28 H Blood Pressure Pulse Oximetry 95 95 94 Oxygen Delivery Method Oxygen Flow Rate 05/03/22 12:01 05/03/22 12:15 05/03/22 12:30 Temperature Pulse Rate 93 H Respiratory Rate Blood Pressure 180/84 H 150/93 H Pulse Oximetry 95 Oxygen Delivery Method Oxygen Flow Rate 05/03/22 12:30 05/03/22 12:45 05/03/22 13:00 Temperature Pulse Rate 93 H 92 H Respiratory Rate Blood Pressure 148/91 H Pulse Oximetry 95 95 Oxygen Delivery Method Oxygen Flow Rate 05/03/22 13:00 05/03/22 13:34 Temperature 99.0 F Pulse Rate 91 H 89 Respiratory Rate 19 Blood Pressure 148/91 H Pulse Oximetry 94 94 Oxygen Delivery Method Oxygen Flow Rate 0 Oxygen Delivery Method Room Air Oxygen Flow Rate 0 Narrative Exam Narrative: alert laying on gurney with at bedside Const Nutritional Appearance: well nourished [facility] Head: normocephalic and atraumatic Chest Other: R supraclavicular LN grossly swollen with open ~3m surgical incision nonhealing draining pus Cardio Rate: regular rate Heart Sounds: S1 normal and S2 normal GI Palpation: soft Auscultation: normal bowel sounds Neuro General: patient alert, patient awake, patient oriented x3, moves all extremities and no focal motor deficits Extrem General: normal exam except as noted and no pedal edema Other: PICC to LUE Psych Mental Status: mental status grossly normal Speech and Movement: speech and movement normal Objective Labs 05/03/22 10:28 05/03/22 10:28 Labs: Laboratory Results - last 24 hr 05/03/22 05/03/22 05/03/22 10:28 10:28 10:28 WBC 25.8 H RBC 3.97 L Hgb 12.0 Hct 36.4 MCV 91.7 MCH 30.3 MCHC 33.1 RDW 14.5 Plt Count 252 Neut % (Auto) Not Reportable Lymph % (Auto) Not Reportable [place] % (Auto) Not Reportable Eos % (Auto) Not Reportable Baso % (Auto) Not Reportable Lymph # (Auto) Not Reportable [place] # (Auto) Not Reportable Baso # (Auto) Not Reportable Total Counted 100 Seg Neutrophils % 69.0 Band Neutrophils % 12.0 H Lymphocytes % (Manual) 1.0 L Monocytes % (Manual) 13.0 H Eosinophils % (Manual) 3.0 Basophils % (Manual) 2.0 H Neutrophils # (Manual) 45471 H RBC Morphology Normal morphology PT 14.7 H INR 1.3 APTT 26 Sodium 133 L Potassium 4.1 Chloride 94 L Carbon Dioxide 31 BUN 18 H Creatinine 0.65 Estimated GFR > 60 BUN/Creatinine Ratio 27.7 H Glucose 122 H Lactate Calcium 9.0 Total Bilirubin 0.4 AST 17 ALT 22 Alkaline Phosphatase 89 Total Creatine Kinase 23 L CK-MB (CK-2) TNP CK-MB (CK-2) Rel Index TNP Troponin I 0.028 NT-Pro-B Natriuret Pep 2610 H Total Protein 6.4 Albumin 3.3 L Globulin 3.1 Albumin/Globulin Ratio 1.1 Lipase 15 L Procalcitonin SARS-CoV-2 (PCR) 05/03/22 05/03/22 05/03/22 10:28 10:28 12:45 WBC RBC Hgb Hct MCV MCH MCHC RDW Plt Count Neut % (Auto) Lymph % (Auto) [place] % (Auto) Eos % (Auto) Baso % (Auto) Lymph # (Auto) [place] # (Auto) Baso # (Auto) Total Counted Seg Neutrophils % Band Neutrophils % Lymphocytes % (Manual) Monocytes % (Manual) Eosinophils % (Manual) Basophils % (Manual) Neutrophils # (Manual) RBC Morphology PT INR APTT Sodium Potassium Chloride Carbon Dioxide BUN Creatinine Estimated GFR BUN/Creatinine Ratio Glucose Lactate 2.6 H 1.2 Calcium Total Bilirubin AST ALT Alkaline Phosphatase Total Creatine Kinase CK-MB (CK-2) CK-MB (CK-2) Rel Index Troponin I NT-Pro-B Natriuret Pep Total Protein Albumin Globulin Albumin/Globulin Ratio Lipase Procalcitonin 0.19 SARS-CoV-2 (PCR) 05/03/22 13:00 WBC RBC Hgb Hct MCV MCH MCHC RDW Plt Count Neut % (Auto) Lymph % (Auto) [place] % (Auto) Eos % (Auto) Baso % (Auto) Lymph # (Auto) [place] # (Auto) Baso # (Auto) Total Counted Seg Neutrophils % Band Neutrophils % Lymphocytes % (Manual) Monocytes % (Manual) Eosinophils % (Manual) Basophils % (Manual) Neutrophils # (Manual) RBC Morphology PT INR APTT Sodium Potassium Chloride Carbon Dioxide BUN Creatinine Estimated GFR BUN/Creatinine Ratio Glucose Lactate Calcium Total Bilirubin AST ALT Alkaline Phosphatase Total Creatine Kinase CK-MB (CK-2) CK-MB (CK-2) Rel Index Troponin I NT-Pro-B Natriuret Pep Total Protein Albumin Globulin Albumin/Globulin Ratio Lipase Procalcitonin SARS-CoV-2 (PCR) Negative Assessment & Plan Assessment & Plan narrative: #infected supraclavicular LN biopsy site #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 Quality VTE Deep Vein Thrombosis/Pulmonary Embolism Present on Admission: No
[2022-05-03] MEDS: OXYCODONE IR 10 MG TABLET PO ×2 (15:50→19:46)
[2022-05-03] MEDS: SODIUM CHLORIDE 0.9% FLUSH 10 ML IV ×2 (17:13→20:55)
[2022-05-03] MEDS: PIPERACILLIN/TAZO 3.375 GM in SODIUM CHLORIDE 0.9% 100 ML IV (19:22)
[2022-05-03] MEDS: ACETAMINOPHEN 325 MG TABLET 650 MG PO (19:45)
[2022-05-03] MEDS: DOCUSATE 100 MG CAPSULE PO (20:54)
[2022-05-03] MEDS: MELATONIN 3 MG TABLET 6 MG PO (20:54)
[2022-05-03] MEDS: diazePAM 5 MG TABLET PO (23:07)
[2022-05-04] VITALS (9 sets, daily range): BP systolic 114–184; BP diastolic 65–97; PULSE 51–102; RESP 21–40; TEMP 36.3–37.4; O2SAT 91–100
[2022-05-04] MEDS: VANCOMYCIN 750 MG/150 ML PIGGYBACK 150 MG IV ×2 (01:58→13:20)
[2022-05-04] MEDS: SODIUM CHLORIDE 0.9% 250 ML 21 ML IV (03:08)
[2022-05-04] MEDS: PIPERACILLIN/TAZO 3.375 GM in SODIUM CHLORIDE 0.9% 100 ML IV ×3 (03:11→18:18)
[2022-05-04] MEDS: SODIUM CHLORIDE 0.9% FLUSH 10 ML IV ×2 (03:16→09:36)
[2022-05-04] MEDS: HYDROMORPHONE 1 MG INJ IV ×2 (04:27→18:34)
[2022-05-04] MEDS: ALBUTEROL/IPRATROPIUM 3 ML AMPUL INH (04:30)
--- NOTE | 2022-05-04 04:50 | RT ---
Dr. Allison notified regarding pt's current condition and oxygenation needs. RN aware. Will cont. to monitor pt.
[2022-05-04 06:15] LABS: Hematocrit 34.2 % (36-46); Hemoglobin 11.1 g/dL (12.0-16.0); Mean Corpuscular HGB Conc 32.6 % (30-36); Mean Corpuscular Hemoglobin 30.2 PG (26-34); Mean Corpuscular Volume 92.6 fL (80-100); Platelet Count 233 X10^3/uL (150-400); Red Blood Cell Count 3.69 X10^6/uL (4.0-5.2); Red Cell Distribution Width 14.6 % (11.6-14.8); White Blood Cell Count 26.4 X10^3/uL (4.5-11.0)
[2022-05-04 06:17] LABS: Add Manual Diff / Slide Review YES
[2022-05-04 06:23] LABS: Alanine Aminotransferase 17 IU/L (<35); Albumin 2.7 g/dL (3.5-5.0); Alkaline Phosphatase 80 U/L (38-126); Aspartate Aminotransferase 16 IU/L (14-36); BUN Creatinine Ratio 27.8 (6-22); Bilirubin Total 0.5 mg/dL (0.2-1.3); Blood Urea Nitrogen 15 mg/dL (7-17); Carbon Dioxide 28 mmol/L (22-32); Chloride 101 mmol/L (98-107); Estimated Glomerular Filt Rate > 60 mL/min (>60); Globulin 2.8 g/dL (1.7-4.1); Glucose 148 mg/dL (80-110); HEMOLYSIS < 15 (0-50); Potassium 3.7 mmol/L (3.4-5.1); Sodium 134 mmol/L (137-145); Total Protein 5.5 g/dL (6.3-8.2)
--- NOTE | 2022-05-04 06:25 | PC.NURSE ---
Change in Condition @0422 [place] transferred [place] [facility] [place] and experienced respiratory distress. O2sats 88% RA, increased respiratory effort, RR 30+, and HR increased to 112 bpm. @0424 pt had O2 applied @2L via NC w/o change. RT notified of pt condition. Pt c/o px 10/11 to R shoulder. @0426 RT arrived @0427 pt given IVP hydromorphone per MAR orders @0447 pt O2sats 97% on 8L via oximask, px 04/13, RR 24, and pt reports breathing improved. @0448 RT notified attending provider, Jonny Allison, of pt's respiratory condition; no new orders given at this time, continue with current POC and re-evaluate per SOC. @0450 pt is resting in bed, call light within reach, bed L&L, RR 21, and O2sats 97% on 8L via oximask.
[2022-05-04 07:19] LABS: Neutrophils Absolute Manual 23496 /uL (3000-5900); RBC Morphology Normal Morphology; Total Cells Counted 100
[2022-05-04] MEDS: SODIUM CHLORIDE 0.9% 1,000 ML 150 ML IV (07:36)
--- NOTE | 2022-05-04 08:35 | PM.PN.1 ---
Subjective Subjective Date Patient Seen: 05/04/22 Time Patient Seen: 08:36 Interval history: Patient is resting comfortably in hospital bed on 3 L with a mask oxygen delivery. Patient has slight tachypnea but no labored breathing. Overnight she had episode of desaturation and when the current nurse came in he found her to be on 8 L at 98% he is weaned her down to 3 L. patient states that she is feeling better. Her only pain is in her right shoulder. She is urinating and denies other pain. She denies any abdominal pain. She is not having any pain in her head or face from a recent fall. Reviewed her past medical history medications allergies health related behavior. Reviewed ER workup and current workup. Exam Vital Signs (past 8 hours): - 05/04/22 03:48 05/04/22 04:34 05/04/22 04:42 Temperature 98.7 F Pulse Rate 94 H 102 H 96 H Respiratory Rate 26 H 40 H 24 Blood Pressure 153/94 H Pulse Oximetry 96 95 94 Oxygen Delivery Method Nasal Cannula Oximask Oxygen Flow Rate 6 6 8 Fraction of Inspired Oxygen 44 05/04/22 07:53 Temperature Pulse Rate Respiratory Rate Blood Pressure Pulse Oximetry Oxygen Delivery Method Oximask Oxygen Flow Rate Fraction of Inspired Oxygen Fraction of Inspired Oxygen 44 SaO2/FiO2 Ratio 215 Oxygen Delivery Method Oximask Oxygen Flow Rate 8 Narrative Exam Narrative: Patient is resting in hospital bed. She has tachypnea with respirations in the upper 20s. But no increased work of breathing. She appears chronically ill and slightly cachectic . HEENT patient has superficial abrasions over her nose and right frontal forehead Neck: Supple Cor: Regular rate and rhythm with 3/6 systolic ejection murmur heard loudest at right upper sternal border Abdomen: Positive bowel sounds, soft, nontender, nondistended Extremities: No edema, pulses intact Neurologic exam nonfocal Evaluation of biopsy site of supraclavicular node shows decreased air edema. Objective Labs 05/04/22 05:41 05/04/22 05:41 Labs: Laboratory Results - last 24 hr 05/03/22 05/03/22 05/03/22 10:28 10:28 10:28 WBC 25.8 H RBC 3.97 L Hgb 12.0 Hct 36.4 MCV 91.7 MCH 30.3 MCHC 33.1 RDW 14.5 Plt Count 252 Neut % (Auto) Not Reportable Lymph % (Auto) Not Reportable [place] % (Auto) Not Reportable Eos % (Auto) Not Reportable Baso % (Auto) Not Reportable Lymph # (Auto) Not Reportable [place] # (Auto) Not Reportable Baso # (Auto) Not Reportable Total Counted 100 Seg Neutrophils % 69.0 Band Neutrophils % 12.0 H Lymphocytes % (Manual) 1.0 L Monocytes % (Manual) 13.0 H Eosinophils % (Manual) 3.0 Basophils % (Manual) 2.0 H Neutrophils # (Manual) 59155 H RBC Morphology Normal morphology PT 14.7 H INR 1.3 APTT 26 Sodium 133 L Potassium 4.1 Chloride 94 L Carbon Dioxide 31 BUN 18 H Creatinine 0.65 Estimated GFR > 60 BUN/Creatinine Ratio 27.7 H Glucose 122 H Lactate Calcium 9.0 Total Bilirubin 0.4 AST 17 ALT 22 Alkaline Phosphatase 89 Total Creatine Kinase 23 L CK-MB (CK-2) TNP CK-MB (CK-2) Rel Index TNP Troponin I 0.028 NT-Pro-B Natriuret Pep 2610 H Total Protein 6.4 Albumin 3.3 L Globulin 3.1 Albumin/Globulin Ratio 1.1 Lipase 15 L Procalcitonin SARS-CoV-2 (PCR) 05/03/22 05/03/22 05/03/22 10:28 10:28 12:45 WBC RBC Hgb Hct MCV MCH MCHC RDW Plt Count Neut % (Auto) Lymph % (Auto) [place] % (Auto) Eos % (Auto) Baso % (Auto) Lymph # (Auto) [place] # (Auto) Baso # (Auto) Total Counted Seg Neutrophils % Band Neutrophils % Lymphocytes % (Manual) Monocytes % (Manual) Eosinophils % (Manual) Basophils % (Manual) Neutrophils # (Manual) RBC Morphology PT INR APTT Sodium Potassium Chloride Carbon Dioxide BUN Creatinine Estimated GFR BUN/Creatinine Ratio Glucose Lactate 2.6 H 1.2 Calcium Total Bilirubin AST ALT Alkaline Phosphatase Total Creatine Kinase CK-MB (CK-2) CK-MB (CK-2) Rel Index Troponin I NT-Pro-B Natriuret Pep Total Protein Albumin Globulin Albumin/Globulin Ratio Lipase Procalcitonin 0.19 SARS-CoV-2 (PCR) 05/03/22 05/04/22 05/04/22 13:00 05:41 05:41 WBC 26.4 H RBC 3.69 L Hgb 11.1 L Hct 34.2 L MCV 92.6 MCH 30.2 MCHC 32.6 RDW 14.6 Plt Count 233 Neut % (Auto) Not Reportable Lymph % (Auto) Not Reportable [place] % (Auto) Not Reportable Eos % (Auto) Not Reportable Baso % (Auto) Not Reportable Lymph # (Auto) Not Reportable [place] # (Auto) Not Reportable Baso # (Auto) Not Reportable Total Counted 100 Seg Neutrophils % 83.0 H Band Neutrophils % 6.0 Lymphocytes % (Manual) 2.0 L Monocytes % (Manual) 3.0 Eosinophils % (Manual) 6.0 H Basophils % (Manual) Neutrophils # (Manual) 02742 H RBC Morphology Normal morphology PT INR APTT Sodium 134 L Potassium 3.7 Chloride 101 Carbon Dioxide 28 BUN 15 Creatinine 0.54 Estimated GFR > 60 BUN/Creatinine Ratio 27.8 H Glucose 148 H Lactate Calcium 8.0 L Total Bilirubin 0.5 AST 16 ALT 17 Alkaline Phosphatase 80 Total Creatine Kinase CK-MB (CK-2) CK-MB (CK-2) Rel Index Troponin I NT-Pro-B Natriuret Pep Total Protein 5.5 L Albumin 2.7 L Globulin 2.8 Albumin/Globulin Ratio 1.0 Lipase Procalcitonin SARS-CoV-2 (PCR) Negative PFSH Medical History Facet arthropathy, cervical Fractures (~2017) HLD (hyperlipidemia) Measles (~194) Staph aureus infection (04/09/22) Vertigo (~2013) Vertigo Surgical History Anesthesia History of biopsy (03/24/22) History of hip replacement (~2016) History of hysterectomy (~1966) Family History Father Cancer Brother Melanoma Mother Lung cancer Social History household members: spouse Smoking Status: Former smoker alcohol intake: current substance use type: does not use Assessment & Plan Assessment & Plan narrative: This is a very pleasant 81-year-old female who has recently been diagnosed with a likely non-small cell lung cancer. The workup is still in the process. She was admitted with cellulitis and sepsis syndrome with associated hypotension and tachycardia and leukocytosis. Blood cultures are pending. Assessment & Plan narrative: # [address] biopsy site with sepsis syndrome including hypoxemia, leukocytosis, tachycardia stable Plan: Await blood cultures and continue with Zosyn and vancomycin. 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 We will go ahead and check a BNP today and will decrease her IV fluids. She has been weaned down on oxygen. continue montelukast with prn duonebs Continue per respiratory therapy # for HLD stable continue home statin Assessment 5. Recent run of V-tach, asymptomatic, 10 beats Plan: Will check TSH and magnesium. Will replace as indicated. Will update echo if not done recently. 6. Shoulder pain suspect related to infected lymph node but if it is not improving with treatment of her infection we will do further workup. MDM: Darrel Patel [phone] PCP: Leander Code: Full Allergies: latex Diet: regular Continue with DVT prophylaxis Time Spent With Patient Critical Care time: I spent a total of [] minutes of critical care time on this patient's care today; this time is exclusive of procedural time. Quality VTE Deep Vein Thrombosis/Pulmonary Embolism Present on Admission: No
--- NOTE | 2022-05-04 08:43 | DI.ECHO.S_ITS ---
[place] [facility]---------+ [facility] +---------+ : : [address] : : : : [id number] : : : : Phone: [phone] Echocardiogram Report + + :Name: EVERETT CALI Study Date: 05/04/2022 Height: 67 in : :[facility] ReadingLocation: Weight: 110 lb : : Gender: Female BSA: 1.6 m2 : :: 1940 Age: 81 yrs BP: 184/97 mmHg: :Reason For Study: V-TACHY : :Ordering Physician: KEE, : :ANNI Performed By: Mariela Gibson : :Referring: ANNI SWEET : + + Interpretation Summary 1) Mildly enlarged left ventricle with mildly reduced systolic function (EF 45-50%). 2) Normal right ventricular size and function. 3) Severely enlarged left atrium. 4) A patent foramen ovale is suspected based on doppler signal. 5) Bileaflet mitral valve prolapse present. 6) There is probable moderate to severe mitral regurgitation but severe mitral regurgitation can't be excluded. Consider LUIZ for further assessment. 7) The right ventricular systolic pressure is estimated to be at least 49 mmHg based on an estimated right atrial pressure of 8 mm Hg. 8) Compared to the Echo done 07/12/2019, LVEF has decreased slightly from low normal to mildly reduced function. Procedure: A two-dimensional transthoracic echocardiogram with color flow and Doppler was performed. The study quality was technically adequate. Comparison is made with the echocardiogram of 07/12/2019. The heart rate ranged between 58-90 bpm during the study. The patient had occasional PVCs during the exam. Left Ventricle: The left ventricle is mildly dilated. There is mild concentric left ventricular hypertrophy. Left ventricular systolic function is mildly reduced. The ejection fraction is estimated to be 45-50%. There is mild global hypokinesis of the left ventricle. Right Ventricle: The right ventricle is normal in size and function. Atria: The left atrium is severely dilated. Right atrial size is normal. A patent foramen ovale is suspected. Mitral Valve: The mitral leaflets appear thickened, hooded, and/or redundant, consistent with myxomatous degeneration. There is moderate mitral valve prolapse. There is prolapse of the posterior mitral valve leaflet(s). There is prolapse of the anterior mitral valve leaflet. There is mild to moderate mitral regurgitation. The mitral regurgitant jet is eccentrically directed. Aortic Valve: The aortic valve is trileaflet. The aortic valve opens well. There is no aortic valve stenosis. There is trace aortic regurgitation. Tricuspid Valve: Tricuspid leaflets are thickened. There is mild tricuspid regurgitation. The right ventricular systolic pressure is estimated to be at least 49 mmHg based on an estimated right atrial pressure of 8 mm Hg. Pulmonic Valve: The pulmonic valve leaflets are thin and pliable; valve motion is normal. There is no pulmonic valvular regurgitation. Great Vessels: The aortic root is normal size. The dimensions of the ascending aorta are normal. The IVC is of normal diameter and collapses less than 50% with a sniff. This suggests a right atrial pressure of 8 mm Hg. Pericardium/ Pleura There is no pericardial effusion. There is a moderate left-sided pleural effusion. MMode/2D Measurements & Calculations LVIDd: 5.8 cm LVOT diam: 2.0 cm LVIDs: 3.7 cm Ao root diam: 3.4 cm FS: 35.6 % asc Aorta Diam: 3.4 cm IVSd: 1.2 cm LVPWd: 1.1 cm LV eisenberg. diameter/BSA (cm/m^2): 3.7 LV sys. diameter/BSA (cm/m^2): 2.4 LA A2 area: 31.0 cm2 RA long axis: 5.1 cm LA A4 area: 31.1 cm2 RA area: 12.4 cm2 LA length (vol): 7.0 cm RA vol: 25.7 ml LA vol: 116.4 ml RA : 16.4 ml/m2 LA vol index: 74.2 ml/m2 IVC diam: 1.5 cm RVD1 (basal): 3.3 cm RVD2 (mid): 2.8 cm TAPSE: 1.9 cm Doppler Measurements & Calculations Ao V2 max: 138.9 cm/sec LVOT Max Pranay: 108.6 cm/sec Ao V2 mean: 97.5 cm/sec LV V1 max P.7 mmHg Ao max P.7 mmHg LV V1 VTI: 15.4 cm Ao mean P.3 mmHg AC(I,D): 2.7 cm2 Ao V2 VTI: 17.5 cm AC(V,D): 2.4 cm2 sev ratio: 0.88 AC indexed to BSA (cm^2/m^2): 1.7 MV E max pranay: 123.4 cm/sec TR max pranay: 318.8 cm/sec MV A max pranay: 82.7 cm/sec TR max P.7 mmHg MV E/A: 1.5 PA pr(Accel): 46.5 mmHg Med Peak E' Pranay: 4.7 cm/sec E/E' med: 26.4 Lat Peak E' Pranay: 6.7 cm/sec E/E' lat: 18.5 E/e' average: 22.5 MV dec time: 0.18 sec MR PISA: 6.1 cm2 SV(LVOT): 47.8 ml MR flow rate: 345.1 cm3/sec MR PISA radius: 0.99 cm Reading Physician:01:27 PM
[2022-05-04 09:07] LABS: NT-proBNP (BNP-Adult 18+) 2940 pg/mL (<450)
[2022-05-04 09:28] LABS: TSH w/ Reflex to FT4 0.42 uIU/mL (0.47-4.68)
[2022-05-04] MEDS: ENOXAPARIN 40 MG/0.4 ML SYRINGE SUBCUT (09:35)
[2022-05-04 09:37] LABS: Lactate (Lactic Acid) 1.4 mmol/L (0.7-2.1)
[2022-05-04] MEDS: ASCORBIC ACID 500 MG TABLET 1000 MG PO (09:37)
[2022-05-04] MEDS: MONTELUKAST 10 MG TABLET PO (09:37)
[2022-05-04] MEDS: CALCIUM CARBONATE 600 MG TABLET PO (09:37)
[2022-05-04] MEDS: MAGNESIUM OXIDE 400 MG TABLET PO (09:37)
[2022-05-04] MEDS: PRAVASTATIN 20 MG TABLET 40 MG PO (09:37)
[2022-05-04] MEDS: CHOLECALCIFEROL (VITAMIN D3) 1,000 UNIT TABLET 2000 UNIT PO (09:37)
[2022-05-04 09:53] LABS: Free T4, Direct Thyroxine 1.67 ng/dL (0.78-2.19)
[2022-05-04] MEDS: OXYCODONE IR 5 MG TABLET PO ×3 (10:10→21:00)
[2022-05-04] MEDS: ACETAMINOPHEN 325 MG TABLET 650 MG PO ×2 (10:10→17:42)
--- NOTE | 2022-05-04 10:10 | PT.IIE ---
Surgical History (Last Reviewed 05/03/22 @ 14:30 by Jonny Allison MD) Anesthesia History of biopsy (03/24/22) History of hip replacement (~2016) History of hysterectomy (~1966) Medical History (Last Reviewed 05/03/22 @ 18:43 by Jonny Allison MD) Facet arthropathy, cervical Fractures (~2018) HLD (hyperlipidemia) Measles (~1949) Staph aureus infection (04/09/22) Vertigo (~2013) Vertigo Physical Therapy Inpatient Evaluation/Re-Eval M1 PT/OT-IP Prior Functional Status Start: 05/04/22 10:52 Freq: NEEDED Status: Active Protocol: Document 05/04/22 10:10 AB (Rec: 05/04/22 11:04 AB [id number]) Medical Review Prior Functional Status Medical History Reviewed Yes Communication able to make needs known Mobility and Gait pt stated that she is modified independent with all mobilities and ambulation without AD; spouse stated that pt has been getting weaker for the last month and able to walk without AD but shuffles; spouse provides SBA for shower needs and assists pt with wound dressing changes for the neck. Social History Household Members spouse Living Arrangements House Number of Floors (Floors) One Floor Number of Stairs To Enter/Railing? 2 steps with R vertical bar on door frame to enter the house Home Environment Walk in Shower,Built-In Shower Seat Home Equipment Raised Toilet Seat Without Armrests,Hand Held Shower,Grab Bars In Shower Additional Social History Comment spouse stated that he is going to get a walker for the pt M2 PT-IP Current Condition Start: 05/04/22 10:52 Freq: NEEDED Status: Active Protocol: Document 05/04/22 10:10 AB (Rec: 05/04/22 11:04 AB [id number]) Physical Therapy Current Condition Current Condition Evaluation Date 05/04/22 Treatment Diagnosis s/p fall; neck cellulitis; lung CA; head/neck CA; difficulty in walking Onset Date 05/03/22 M3 PT-IP Subjective Start: 05/04/22 10:52 Freq: NEEDED Status: Active Protocol: Document 05/04/22 10:10 AB (Rec: 05/04/22 11:04 AB [id number]) Subjective Physical Therapy Visit Type Type Initial Evaluation Visit Start Time 10:10 Visit Stop Time 10:45 Total Visit Minutes 35 Number of MOLDER PUNCH Visits 0 Physical Therapy Visit Comments Patient Comments agreeable to do PT Therapy Pain Assessment Pain When Pain Assessed At Rest Pain Present Pain Present Pain Reported Location Right Shoulder Intensity 8 Scale Used Numeric (0 - 10) Pain Management Techniques Distraction,Modification of Treatment,Re-positioning, Timing of Activity with Medications M4 PT-IP Mobility and Gait Start: 05/04/22 10:52 Freq: NEEDED Status: Active Protocol: Document 05/04/22 10:10 AB (Rec: 05/04/22 11:04 AB [id number]) PT-Bed Mobility Assessment Supine to Sit Supine to Sit Standby Assistance PT-Transfer Assessment Sit to and From Stand Sit to and from Stand Contact Guard Assistance,1 Person Assistance,Use of Upper Extremities Equipment Transfer Assistive Device Gait Belt,Front Wheeled Walker Orthotic/Prosthetic Devices or Brace: No Transfers Transfer Destination Chair Transfer Technique ambulated Transfer Ability Level of Assist Contact Guard Assistance,1 Person Assistance,Use of Upper Extremities Comments Mobility Comments pt on 3L/min of O2 and O2 sat at rest: 95%. completed supine to sit SBA. able to sit on EOB SBA. O2 sat 90-91%. pt is a mouth breather and instructed to breath in through her nose. completed sit to stand CGA and ambulated in room using FWW ~ 20 ft CGA . pt agreed to sit up on the chair. (+) SOB. O2 sat decreased to ~ 88 % but increased to 90% after ~ 15 sec rest. positioned pt on the chair. call light and table placed within reach. Gait Assessment Gait Gait Assistance Required: Contact Guard Assist Distance (Feet) 20 Able to Maintain Weight Bearing Status Yes During Gait Assistive Devices Assistive Device Gait Belt,Front Wheeled Walker Orthotic/Prosthetic Devices or Brace: No Gait Deviations General Gait Pattern Decreased Stride Length, Decreased Feet Clearance,Step- to Gait Factors Limiting Gait Function Factors Limiting Gait Function Decreased Activity Tolerance, Decreased Strength,Limited Range of Motion,Pain,Poor Balance,Poor Safety Awareness, Respiratory Distress PT-Balance Assessment Sitting Balance and Reactions Static Sitting Balance Ability Normal Dynamic Sitting Balance Ability Good Standing Balance and Reactions Static Standing Balance Ability Fair Dynamic Standing Balance Ability Fair Device Used FWW M5 PT-IP Objective Assessments Start: 05/04/22 10:52 Freq: NEEDED Status: Active Protocol: Document 05/04/22 10:10 AB (Rec: 05/04/22 11:04 AB [id number]) Orientation Orientation/Cognition Level of Alertness Alert Orientation Name Language Function Ability No Deficits Noted Safety Awareness Decreased Safety Awareness Memory Description Short Term Impaired Gross Range of Motion Lower Extremity ROM Assessment Within Functional Limits Strength Lower Extremity Strength Assessment Within Functional Limits Coordination Assessment Gross Coordination Gross Coordination WNL Muscle Tone Muscle Tone WNL Yes M6 PT-IP Treatment Start: 05/04/22 10:52 Freq: NEEDED Status: Active Protocol: Document 05/04/22 10:10 AB (Rec: 05/04/22 11:04 AB [email or web address]) Physical Therapy Treatment Education Education Provided Safety M7 PT-IP Assessment and Plan Start: 05/04/22 10:52 Freq: NEEDED Status: Active Protocol: Document 05/04/22 10:10 AB (Rec: 05/04/22 11:04 AB [email or web address]) PT Summary Assessment and Plan Potential Rehabilitation Potential Fair Status of Condition at Evaluation Evolving Summary Impairments Pain,ROM,Strength,Balance, Coordination,Sensation,Tone, Cognition,Bed Mobility, Transfers,Gait,Activity Tolerance Assessment Summary pt requiring CGA with mobility but with decrease activity tolerance affecting function with (+) SOB and decrease O2 sat to 88% with 3L/min O2. pt 's spouse will be able to assist pt at home and caregiver training will be conducted when appropriate as well as stair climbing training will continue to assess progress. Goals Bed Mobility Goal Independent Transfer Goal Independent,Front Wheeled Walker Gait Goal Independent,Front Wheel Walker Gait Distance 150 Other Goals ambulation without AD 150 ft SBA up/down 2 steps R vertical bar SBA Days to Meet Goals 10 Frequency of Treatment Frequency Of Treatment Once a Day Treatment Plan Physical Therapy Treatment Plan Bed Mobility Training,Transfer Training,Gait Training, Therapeutic Exercise,Balance Retraining,Discharge Planning, Hot or Cold Pack,Neuromuscular Re-ed,Coordination Retraining Precautions Other Precautions O2 sat; falls Recommendations To Nursing Amount of Assist Needed 1 Person Assist Discharge Recommendations PT Discharge Recommendations Home with 25/10 Assist Available,Home Health Equipment Needed for Home Before FWW Discharge Transportation Needs at Discharge Private Vehicle
--- NOTE | 2022-05-04 11:37 | DIET.CONS ---
Dietary Consultation Note Admission Date: 05/03/2022 12:06 Assessment: 81y F admitted after GLF with post-surgical infection screened by RD for low BMI (17.2 severe for age) and low MNA score (4 malnourished). Met with patient at bedside, pt reports long hx weight stability at 58kg until last July when she got covid pna. Pt had 2 months diarrhea and lost significant weight which she has not been able to replete since. Pt with 15% unintentional weight loss in 9mo (severe). Pt diagnosed last month with non-small cell lung cancer and had lymph node biopsied. Pt with post-surgical infection currently. Pt had PICC line placed yesterday. Pt with symptoms of dry throat, reduced appetite, weakness. Pt with increased GLFs at home over the past month and reports consuming ~50% of her usual intake with dinner being best meal of day. Pt enjoys high protein and rich foods but historically did not eat them due to concern over weight gain. Ht: 170.18 cm Wt: 49.895 kg BMI: 17.2 UBW: 58kg Last BM: 05/03/22 (05/03/22 12:09) MNA: 4 Marco Score: 20 Diet: 05/03/22 Dinner General (Regular) Diet Diet Modifications: Nutrition Percent Meal Consumed 75% 05/03/22 18:00 Labs: RBC 3.69 X10^6/uL (4.0-5.2) L 05/04/22 05:41 Hgb 11.1 g/dL (12.0-16.0) L 05/04/22 05:41 Hct 34.2 % (36-46) L 05/04/22 05:41 Creatinine 0.54 mg/dL (0.52-1.04) 05/04/22 05:41 Lactate 1.4 mmol/L (0.7-2.1) 05/04/22 09:12 NT-Pro-B Natriuret Pep 2940 pg/mL (<450) H 05/04/22 05:41 Nutrition Diagnosis: Severe Acute on Chronic Protein Calorie Malnutrition r/t inadequate PO intake, GI symptoms (diarrhea) aeb BMI 17.2 (severe), 15% unintentional weight loss in <9mo, pt with 2mo diarrhea after covid dx, pt c recent dx lung cancer and post op infection, pt meeting <50% EER with taste changes and poor appetite. -The patient is at much higher risk for medical and surgical complications because of malnutrition. This increases the difficulty and complexity of medical and surgical interventions and increases the chances of poor outcomes such as morbidity and mortality. Interventions: 1. While hospitalized, sending pt ONS Ensure Enlive-chocolate bid providing 40% kcals and 53% protein needs in addition to meal trays. Also sending blueberry yogurt once daily. 2. To support nutrition status on d/c, educated pt on high pro/high kcal MNT and increased intake moist foods for dry throat. EER: 1,750kcals (35kcal/kg), 75g PRO (1.5g/kg per PCM) Monitoring/Evaluations: PO intake, ONS tolerance Electronically Signed by: Lyndsay Walker 05/04/22 11:37 Clinical Dietitian [address] [address]
[2022-05-04] MEDS: FLUCONAZOLE 100 MG TABLET PO (14:03)
[2022-05-04] MEDS: CLOTRIMAZOLE TROCHE 10 MG PO ×3 (14:03→21:01)
[2022-05-04] MEDS: FUROSEMIDE 40 MG/4 ML VIAL IV (14:03)
--- NOTE | 2022-05-04 14:42 | CM.DANOTE ---
Initial DCP Assessment Note Pt is an 81 yo female, resident of [place], recently diagnosed head and neck cancer/[id number]-bict cancer of the left lung without any specific type yet. Patient had a fall last night. Spouse encouraged patient to present to the ER yesterday Dr Whittington: She was admitted with cellulitis and sepsis syndrome with associated hypotension and tachycardia and leukocytosis. PCP: Dr Leander Cabrales: [facility] A/ BORA Siu Reviewed chart, met w/patient this morning to introduce self and role. Patient very pleasant, states she was hoping to return home today but doc expects she may be here an addtl 24-48 hrs Patient reports she is motly indp at baseline, uses a walker around their home. Spouse able to assist as needed. Spouse Darrel entered room, tired appearing, this [employer] offered support and assistance where needed and both appreciative. Did not discuss HH options this visit as both patient and spouse appear very tired and wanting rest. CM team will plan to follow closely for assessment of need and coordination of discharge plan JATIN Keenan Discharge Planning/Care Management CM Discharge Assessment Start: 05/04/22 14:39 Freq: Status: Active Protocol: Document 05/04/22 14:39 TAO (Rec: 05/04/22 14:42 TAO [id number]) Discharge Planning Assessment Assigned Section Cutter JATIN Hanson DPOA/Assigned Designee Name Maciej Patel, spouse Contact Information [phone], Advance Directives? Yes Advance Directives on File No: states full code History Provided By Patient,Family Member,Medical Record Prior Living Arrangements House Household Members spouse Type of transporation used prior to Relies on Others admit Independent with ADL's Yes: Poor activity tolerance Is patient alert and oriented? Yes Needs Assistance With Bathing,Managing Medications, Home Chores / Shopping Patient/Family Preference Home with Home Health Barriers to Discharge No Comment Patient plans to return home w /her spouse upon discharge, did not discuss HH services today, although patient may benefit depending on needs at discharge Discharge Plan Home Transportation Arrangement Spouse Referrals Initiated None needed Additional Comment Following for needs, r/o need for HH Whiteboard Updated in Patient Room with Yes name and ext. # of Section Cutter
--- NOTE | 2022-05-04 15:08 | OT.IP.EVAL ---
Past Medical History (Last Reviewed 05/03/22 @ 18:43 by Jonny Allison MD) Facet arthropathy, cervical Fractures (~2018) HLD (hyperlipidemia) Measles (~1949) Staph aureus infection (04/09/22) Vertigo (~2013) Vertigo Surgical History (Last Reviewed 05/03/22 @ 14:30 by Jonny Allison MD) Anesthesia History of biopsy (03/24/22) History of hip replacement (~2016) History of hysterectomy (~1966) Occupational Therapy Inpatient Evaluation/Re-Eval M1 PT/OT-IP Prior Functional Status Start: 05/04/22 10:52 Freq: NEEDED Status: Active Protocol: Document 05/04/22 15:08 [facility] (Rec: 05/04/22 15:43 [facility] [id number]) Medical Review Prior Functional Status Medical History Reviewed Yes Communication able to make needs known Mobility and Gait pt stated that she is modified independent with all mobilities and ambulation without AD; spouse stated that pt has been getting weaker for the last month and able to walk without AD but shuffles; spouse provides SBA for shower needs and assists pt with wound dressing changes for the neck. Activities of Daily Living and IADL's Pt states her just assist with showers and dressing changes for her neck. Social History Household Members spouse Living Arrangements House Number of Floors (Floors) One Floor Number of Stairs To Enter/Railing? 2 steps with R vertical bar on door frame to enter the house Home Environment Walk in Shower,Built-In Shower Seat Home Equipment Raised Toilet Seat Without Armrests, BSC,Hand Held Shower,Grab Bars In Shower Additional Social History Comment spouse stated that he is going to get a walker for the pt- pt states maybe getting either fww or 4ww M2 OT-IP Current Condition Start: 05/04/22 15:27 Freq: Status: Active Protocol: Document 05/04/22 15:08 [facility] (Rec: 05/04/22 15:43 [facility] [id number]) Occupational Therapy Current Condition Current Condition Evaluation Date 05/04/22 Treatment Diagnosis GLF, neck cellulitis, lung and neck CA Diagnosis Onset Date 05/03/22 M3 OT- IP Subjective and Pain Start: 05/04/22 15:27 Freq: Status: Active Protocol: Document 05/04/22 15:08 [facility] (Rec: 05/04/22 15:43 [facility] [id number]) OT- Subjective Occupational Therapy Visit Type Type Initial Evaluation Visit Start Time 15:08 Visit Stop Time 15:26 Total Visit Minutes 18 Occupational Therapy Visit Comments Patient Comments Pt just about to use the toilet with nursing when OT came in to see the pt. Patient/Caregiver Goals To go home. OT Pain Assessment Pain When Pain Assessed At Rest Pain Present Pain Present Pain Reported M4 OT- IP ADL's Start: 05/04/22 15:27 Freq: Status: Active Protocol: Document 05/04/22 15:08 [facility] (Rec: 05/04/22 15:43 [facility] [id number]) OT ADL-Grooming Comments OT Grooming Comments Pt too tired to do at this time. OT ADL-Oral Care Comments Oral Care Comments Pt too tired to preform at this time. OT ADL-Dressing General Eval Lower Body Dressing Ability Standby Assistance Comments OT Dressing Comments Pt able to maurice/doff brief over her hips while standing with FWW. OT ADL-Toileting General Evaluation Toileting Ability Standby Assistance Comments OT Toileting Comments Pt able to do her own toileting on her own. OT ADL-Bathing Comments OT Bathing Comments Pt too tired to do at this time. M5 OT- IP IADL's Start: 05/04/22 15:27 Freq: Status: Active Protocol: Document 05/04/22 15:08 [facility] (Rec: 05/04/22 15:43 [facility] [id number]) OT-Instrumental Activities of Daily Living Home Safety Awareness Home Safety Comments At this time best for her to assist her with all her needs due to decreased activity tolerance and endurance. Medication Management Medication Management Comments Pt states does her own. Money Management Money Management Caregiver Provides Assistance Meal Preparation Meal Preparation Comments Pt will need assist at this time. Human Resources Support Specialist Human Resources Support Specialist Comments Pt will need assist at this time. M6 OT- IP Functional Cognition Start: 05/04/22 15:27 Freq: Status: Active Protocol: Document 05/04/22 15:08 [facility] (Rec: 05/04/22 15:43 [facility] [id number]) Cognitive Factors Limiting Selfcare Function Cognitive Ability Level of Alertness Alert Patient Orientation Name,Place,Situation Attention Span Ability Capable of Focused Attention, Capable of Sustained Attention Ability to Follow Commands Able to Follow One Step Commands Cognitive Comments Cognitive Assessment Comments Pt able to follow commands for ADl and mobility needs. Pt needing vc for FWW. OT- Vision and Hearing OT- Hearing Assessment OT- Hearing Assessment WFL OT- Vision Assessment Visual Acuity WFL Visual Attentiveness WFL Occular Pursuits WFL M7 OT- IP Mobility and Balance Start: 05/04/22 15:27 Freq: Status: Active Protocol: Document 05/04/22 15:08 [facility] (Rec: 05/04/22 15:43 [facility] [id number]) OT- Bed Mobility Assessment Sit to Supine Sit to Supine Assist Standby Assistance OT-Transfer Assessment Sit to and From Stand Sit to and from Stand Moderate Assistance Transfers Transfer Ability Contact Guard Assistance Technique Transfer Destination Bed,Toilet Transfer Technique Stand Step Pivot Devices Transfer Assistive Devices Front Wheeled Walker Comments Mobility Comments MODA to stand to FWW from the toilet. Pt states has as BSC and RTS at home to use. CGA with FWW to walk back to the bed. Pt O2 dropped to 88% after getting back to bed from the bathroom on RA. OT- Balance Assessment Sitting Balance and Reactions Static Sitting Balance Ability Good Dynamic Sitting Balance Ability Good Standing Balance and Reactions Static Standing Balance Ability Fair Dynamic Standing Balance Ability Fair M8 OT- IP Objective Assessments Start: 05/04/22 15:27 Freq: Status: Active Protocol: Document 05/04/22 15:08 [facility] (Rec: 05/04/22 15:43 [facility] [id number]) OT Gross Range of Motion Upper Extremity Range of Motion ROM Impairments NT OT Strength Comments Strength Comments At least 3-/5 throughout during ADl and mobility needs. M9 OT- IP Assessment and Plan Start: 05/04/22 15:27 Freq: Status: Active Protocol: Document 05/04/22 15:08 [facility] (Rec: 05/04/22 15:43 [facility] [id number]) OT Summary Assessment and Plan Potential Rehabilitation Potential Good Analytic Complexity at Evaluation Moderate Summary OT Impairments Pain,Range of Motion,Strength, Balance,Functional Cognition, Functional Mobility,Dressing, Toileting,Bathing,Toilet Transfers,Shower Transfers, Activity Tolerance Progress Towards Goals Slow Progress due to Medical Issues,Slow Progress due to Activity Tolerance,Slow Progress due to Cognition Assessment Summary Pt MOD complexity and needing MODA to help stand from lower surfaces and CGA for balance while pulling up her brief over her hips. Pt's main barriers are steps, decreased activity tolerance and dynamic balance. Pt looking to go home with her supportive when medically stable. Pt would benefit from home health and bath aid. Goals Self-Feeding Goal Independent Grooming Goal Independent Dressing Goal Independent Toileting Goal Independent Bathing Goal Standby Assistance Toilet Transfer Goal Independent Shower Transfer Goal Standby Assistance Patient/Caregiver Education Goal Demonstrate Energy Conservation and Pacing Days to Meet Goals 10 Frequency of Treatment Frequency Of Treatment Once a Day Treatment Plan OT Treatment Plan ADL Training,Functional Cognition Training,Functional Mobility,Patient/Family Education,Discharge Planning Other Treatment Recommendations and Next fww versus 4ww Treatment Focus Discharge Recommendations OT Discharge Recommendations Home with Assistance,Home Health Home Equipment Needs fww versus 4ww Transportation Needs at Discharge Private Vehicle
[2022-05-04] MEDS: DOCUSATE 100 MG CAPSULE PO (20:45)
[2022-05-04] MEDS: MELATONIN 3 MG TABLET 6 MG PO (21:01)
[2022-05-05] VITALS (7 sets, daily range): BP systolic 102–144; BP diastolic 66–92; PULSE 52–89; RESP 16–25; TEMP 36.2–37.2; O2SAT 91–98
[2022-05-05] MEDS: SODIUM CHLORIDE 0.9% 250 ML 21 ML IV (02:02)
[2022-05-05] MEDS: VANCOMYCIN 750 MG/150 ML PIGGYBACK 150 MG IV (02:02)
[2022-05-05] MEDS: VANCOMYCIN TROUGH 1 REQUEST MISC (02:09)
[2022-05-05 02:19] LABS: Vancomycin Trough 9.5 ug/mL (10-20)
[2022-05-05] MEDS: PIPERACILLIN/TAZO 3.375 GM in SODIUM CHLORIDE 0.9% 100 ML IV ×3 (03:21→18:11)
[2022-05-05] MEDS: VANCOMYCIN PEAK 1 REQUEST MISC (04:26)
[2022-05-05 04:41] LABS: Hemoglobin 11.1 g/dL (12.0-16.0); Mean Corpuscular HGB Conc 32.7 % (30-36); Mean Corpuscular Hemoglobin 30.5 PG (26-34); Mean Corpuscular Volume 93.1 fL (80-100); Platelet Count 242 X10^3/uL (150-400); Red Blood Cell Count 3.65 X10^6/uL (4.0-5.2); Red Cell Distribution Width 14.5 % (11.6-14.8); White Blood Cell Count 24.1 X10^3/uL (4.5-11.0)
[2022-05-05 04:42] LABS: Add Manual Diff / Slide Review YES; Alanine Aminotransferase 16 IU/L (<35); Albumin 2.7 g/dL (3.5-5.0); Alkaline Phosphatase 78 U/L (38-126); Aspartate Aminotransferase 13 IU/L (14-36); BUN Creatinine Ratio 28.3 (6-22); Bilirubin Total 0.5 mg/dL (0.2-1.3); Blood Urea Nitrogen 17 mg/dL (7-17); Calcium 8.2 mg/dL (8.4-10.2); Carbon Dioxide 31 mmol/L (22-32); Chloride 98 mmol/L (98-107); Estimated Glomerular Filt Rate > 60 mL/min (>60); Globulin 2.8 g/dL (1.7-4.1); Glucose 104 mg/dL (80-110); HEMOLYSIS < 15 (0-50); Potassium 3.1 mmol/L (3.4-5.1); Sodium 133 mmol/L (137-145); Total Protein 5.5 g/dL (6.3-8.2)
[2022-05-05 04:51] LABS: NT-proBNP (BNP-Adult 18+) 4140 pg/mL (<450)
[2022-05-05] MEDS: OXYCODONE IR 5 MG TABLET PO (06:18)
[2022-05-05] MEDS: ACETAMINOPHEN 325 MG TABLET 650 MG PO ×2 (06:19→12:16)
[2022-05-05] MEDS: CLOTRIMAZOLE TROCHE 10 MG PO ×5 (06:20→20:30)
[2022-05-05 06:38] LABS: Neutrophils Absolute Manual 21690 /uL (3000-5900); Total Cells Counted 100
[2022-05-05 06:39] LABS: Anisocytosis 1+
--- NOTE | 2022-05-05 09:16 | P.PN_ITS ---
Subjective Subjective Date Patient Seen: 05/05/22 Time Patient Seen: 09:16 Interval history: Erika Patel is an 81 year old female patient with history of neck cellulitis and lung cancer who was admitted for a right sided supraclavicular mass. Patient's neck lymph node was biopsied and subsequently she had an infection of the site. She reports feeling better today. Her WBC has come down to 24 (from 26) while on Vanc and pip-tazo. She reports that she can breathe a little better today with her oximask at 3L. She has been able to void without issues. No abdominal pain. Patient is feeling much better today. She is breathing comfortably. She is really not having much pain at all today. Review of systems otherwise negative. No chest pain. Exam Vital Signs (past 8 hours): - 05/05/22 04:00 05/05/22 07:20 05/05/22 08:00 Temperature 98.9 F 98.2 F Pulse Rate 89 80 Respiratory Rate 21 Blood Pressure 136/92 H 140/92 H Pulse Oximetry 98 98 Oxygen Delivery Method Oximask Oxygen Flow Rate 3 3 Fraction of Inspired Oxygen 44 SaO2/FiO2 Ratio 215 Oxygen Delivery Method Oximask Oxygen Flow Rate 3 Const General: cooperative and comfortable Nutritional Appearance: thin HENMT Head: abrasion Neck Neck: lymphadenopathy (Right sided, supraclavicular. Dressing in place.) Resp Effort & Inspection: labored Auscultation: crackles (Bilateral lower lobes.) Cardio Rate: regular rate Rhythm: abnormal rhythm Heart Sounds: murmur (4/6 holosystolic murmur at the apex) GI Other: Abdomen: Positive bowel sounds, soft, nontender, nondistended Skin General: ecchymosis Extrem General: edema (Trace LE edema bilaterally) Objective Labs 05/05/22 04:10 05/05/22 04:10 Labs: Laboratory Results - last 24 hr 05/04/22 05/04/22 05/04/22 05:41 05:41 09:12 WBC RBC Hgb Hct MCV MCH MCHC RDW Plt Count Neut % (Auto) Lymph % (Auto) Toole % (Auto) Eos % (Auto) Baso % (Auto) Lymph # (Auto) Toole # (Auto) Baso # (Auto) Total Counted Seg Neutrophils % Band Neutrophils % Lymphocytes % (Manual) Monocytes % (Manual) Eosinophils % (Manual) Basophils % (Manual) Neutrophils # (Manual) RBC Morphology Anisocytosis Sodium Potassium Chloride Carbon Dioxide BUN Creatinine Estimated GFR BUN/Creatinine Ratio Glucose Lactate 1.4 Calcium Magnesium 2.0 Total Bilirubin AST ALT Alkaline Phosphatase NT-Pro-B Natriuret Pep Total Protein Albumin Globulin Albumin/Globulin Ratio TSH 0.42 L Free T4 1.67 Vancomycin Peak Vancomycin Trough 05/05/22 05/05/22 05/05/22 01:35 04:10 04:10 WBC 24.1 H RBC 3.65 L Hgb 11.1 L Hct 34.0 L MCV 93.1 MCH 30.5 MCHC 32.7 RDW 14.5 Plt Count 242 Neut % (Auto) Not Reportable Lymph % (Auto) Not Reportable Toole % (Auto) Not Reportable Eos % (Auto) Not Reportable Baso % (Auto) Not Reportable Lymph # (Auto) Not Reportable Toole # (Auto) Not Reportable Baso # (Auto) Not Reportable Total Counted 100 Seg Neutrophils % 82.0 H Band Neutrophils % 8.0 H Lymphocytes % (Manual) 4.0 L Monocytes % (Manual) 3.0 Eosinophils % (Manual) 2.0 Basophils % (Manual) 1.0 Neutrophils # (Manual) 26847 H RBC Morphology See below Anisocytosis 1+ H Sodium Potassium Chloride Carbon Dioxide BUN Creatinine Estimated GFR BUN/Creatinine Ratio Glucose Lactate Calcium Magnesium Total Bilirubin AST ALT Alkaline Phosphatase NT-Pro-B Natriuret Pep Total Protein Albumin Globulin Albumin/Globulin Ratio TSH Free T4 Vancomycin Peak 22.0 Vancomycin Trough 9.5 L 05/05/22 05/05/22 04:10 04:10 WBC RBC Hgb Hct MCV MCH MCHC RDW Plt Count Neut % (Auto) Lymph % (Auto) Toole % (Auto) Eos % (Auto) Baso % (Auto) Lymph # (Auto) Toole # (Auto) Baso # (Auto) Total Counted Seg Neutrophils % Band Neutrophils % Lymphocytes % (Manual) Monocytes % (Manual) Eosinophils % (Manual) Basophils % (Manual) Neutrophils # (Manual) RBC Morphology Anisocytosis Sodium 133 L Potassium 3.1 L Chloride 98 Carbon Dioxide 31 BUN 17 Creatinine 0.60 Estimated GFR > 60 BUN/Creatinine Ratio 28.3 H Glucose 104 Lactate Calcium 8.2 L Magnesium Total Bilirubin 0.5 AST 13 L ALT 16 Alkaline Phosphatase 78 NT-Pro-B Natriuret Pep 4140 H Total Protein 5.5 L Albumin 2.7 L Globulin 2.8 Albumin/Globulin Ratio 1.0 TSH Free T4 Vancomycin Peak Vancomycin Trough PFSH Medical History Facet arthropathy, cervical Fractures (~2017) HLD (hyperlipidemia) Measles (~1949) Staph aureus infection (04/09/22) Vertigo (~2013) Vertigo Surgical History Anesthesia History of biopsy (03/24/22) History of hip replacement (~2016) History of hysterectomy (~1966) Family History Father Cancer Brother Melanoma Mother Lung cancer Social History household members: spouse Smoking Status: Former smoker alcohol intake: current substance use type: does not use Assessment & Plan Assessment and plan (1) Cellulitis of neck: Status: Acute (2) Lung cancer: Qualifiers: Laterality: unspecified laterality Lung location: unspecified part of lung Qualified Code(s): C34.90 - Malignant neoplasm of unspecified part of unspecified bronchus or lung Status: Acute Plan This is an 81 year old female patient with hx of lung cancer and cellulitis s/p supraclavicular lymph node biopsy. #Supraclavicular cellulitis s/p lymph node biopsy WBC today is at 24. She continues to be on vanco and zosyn. The site is without pus and has minimal erythema but positive for some serosanguinous fluid. We will continue to monitor her WBC for now as her antibiotic regimen has good anaerobic and gram neg. coverage. Cultures pending #Pulmonary edema Patient reports that she feels better today and that her breathing is slightly better than before. She continues to be on 3L O2. Exam revealed bilateral lower lobe crackles and holosystolic murmur at the apex consistent with severe mitral regurg per her recent echo. We will give 40mg lasix today to get some fluid off. Conitnue O2 supplement #Deconditioning Inpatient PT ordered #hx of copd She has been weaned down on oxygen. Continue montelukast with prn duonebs. Continue respiratory therapy # for HLD stable continue home statin #Recent run of V-tach, asymptomatic, 10 beats TSH mildly low at 0.42 and magnesium normal.?Potassium at 3.1 Will replace as indicated.? MDM: Darrel Patel [phone] PCP: Leander Code: Full Allergies: latex Diet: regular Continue with DVT prophylaxis Assessment & Plan narrative: # 1? infected supraclavicular LN biopsy site with sepsis syndrome including hypoxemia, leukocytosis, tachycardia stable. Patient clinically improving significantly but still with white blood cell count slow to come down. Blood cultures prelim are negative. We do not have other culture sites. No other site for infectious process. Plan: Await blood cultures and continue with Zosyn and vancomycin. 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 Osman. Patient was supposed to have her 1st appointment with him on Tuesday but was in the hospital. We will touch base with them to help facilitate outpatient evaluation KIM and see if he has any recommendations for her while she is inpatient. # 3 hx of copd with desaturation yesterday of unclear etiology concern for possible fluid overload.? Patient had improvement in her condition. Clinically she is improving. I still think she is as fluid overload and we will give anoth er dose of Lasix this morning. She is off IV fluids. She has been weaned down on oxygen. Will repeat BnP tomorrow ?continue montelukast with prn duonebs Continue per respiratory therapy # for HLD stable continue home statin Assessment 5.? V-tach, asymptomatic, 10 beats. Patient was asymptomatic. She is not had a recurrence. We check TSH and magnesium and electrolytes all normal. Echo does not show significant change from September of 2019 though worsening regurgitation, mitral. Plan: We will continue to follow. 6. Shoulder pain suspect related to infected lymph node but if it is not impr oving with treatment of her infection we will do further workup. Assessment 7. Severe acute on chronic malnutrition Plan: Appreciate dietary consult Assessment 8. Acute systolic heart failure with slightly decreased ejection fraction from her previous echo in 2019. Plan: We will continue to diurese. We will start angiotensin receptor dimas if no contraindications. Consider beta dimas but will have to use cautiously due to COPD. Assessment 9. Hypokalemia status post 40 mEq today of oral potassium Plan: Will recheck tomorrow 50 minutes was spent with patient today. Discussing with nursing, meeting with patient, reviewing the chart, formulating a plan and documentation. MDM: Darrel Patel [phone] PCP: Leander Code: Full Allergies: latex Diet: regular Continue with DVT prophylaxis Time Spent With Patient Critical Care time: I spent a total of [] minutes of critical care time on this patient's care tod ay; this time is exclusive of procedural time. Quality VTE Deep Vein Thrombosis/Pulmonary Embolism Present on Admission: No
[2022-05-05] MEDS: MONTELUKAST 10 MG TABLET PO (09:22)
[2022-05-05] MEDS: CHOLECALCIFEROL (VITAMIN D3) 1,000 UNIT TABLET 2000 UNIT PO (09:23)
[2022-05-05] MEDS: ENOXAPARIN 40 MG/0.4 ML SYRINGE SUBCUT (09:23)
[2022-05-05] MEDS: MAGNESIUM OXIDE 400 MG TABLET PO (09:23)
[2022-05-05] MEDS: CALCIUM CARBONATE 600 MG TABLET PO (09:23)
[2022-05-05] MEDS: POTASSIUM CHLORIDE 20 MEQ TAB 40 MEQ PO (09:23)
[2022-05-05] MEDS: ASCORBIC ACID 500 MG TABLET 1000 MG PO (09:23)
[2022-05-05] MEDS: DOCUSATE 100 MG CAPSULE PO ×2 (09:23→20:29)
[2022-05-05] MEDS: FLUCONAZOLE 100 MG TABLET PO (09:23)
[2022-05-05] MEDS: PRAVASTATIN 20 MG TABLET 40 MG PO (09:23)
[2022-05-05] MEDS: polyethylene glycoL 3350 17 GM POWD.PACK PO (09:45)
[2022-05-05] MEDS: VANCOMYCIN 1,000 MG/200 ML PIGGYBACK 200 MG IV ×2 (10:04→22:51)
[2022-05-05] MEDS: FUROSEMIDE 40 MG/4 ML VIAL IV (10:04)
--- NOTE | 2022-05-05 11:31 | OT.IP.TRT ---
Current Diagnoses Sepsis following a procedure, initial encounter (05/03/22) Occupational Therapy Treatment Note M2 OT-IP Current Condition Start: 05/04/22 15:27 Freq: Status: Active Protocol: Document 05/04/22 15:08 [facility] (Rec: 05/04/22 15:43 [facility] [id number]) Occupational Therapy Current Condition Current Condition Evaluation Date 05/04/22 Treatment Diagnosis GLF, neck cellulitis, lung and neck CA Diagnosis Onset Date 05/03/22 M3 OT- IP Subjective and Pain Start: 05/04/22 15:27 Freq: Status: Active Protocol: Document 05/05/22 13:26 [facility] (Rec: 05/05/22 13:37 [facility] [id number]) OT- Subjective Occupational Therapy Visit Type Type Treatment Note Visit Start Time 11:13 Visit Stop Time 11:31 Total Visit Minutes 18 Occupational Therapy Visit Comments Patient Comments Pt not wanting to shower at this time but agreed to do oral care needs. Pt's daughter present in the room. Patient/Caregiver Goals To go home. OT Pain Assessment Pain When Pain Assessed At Rest Pain Present Pain Present Pain Reported M4 OT- IP ADL's Start: 05/04/22 15:27 Freq: Status: Active Protocol: Document 05/05/22 13:26 [facility] (Rec: 05/05/22 13:37 [facility] [id number]) OT ADL-Grooming General Evaluation Grooming Ability Standby Assistance Areas Needing Assistance Retrieving/Set-up of Grooming Items Comments OT Grooming Comments Set - up assist due to decrease strength in her hands . VC for orientation of items on the sink. OT ADL-Oral Care General Eval Oral Care Ability Standby Assistance Comments Oral Care Comments Cues for completeness to spit and rinse her mouth out. OT ADL-Dressing Comments OT Dressing Comments Not performed. OT ADL-Toileting Comments OT Toileting Comments Pt just getting back from nursing from the toilet. OT ADL-Bathing Comments OT Bathing Comments Pt too tired to do at this time. M5 OT- IP IADL's Start: 05/04/22 15:27 Freq: Status: Active Protocol: Document 05/04/22 15:08 [facility] (Rec: 05/04/22 15:43 [facility] [id number]) OT-Instrumental Activities of Daily Living Home Safety Awareness Home Safety Comments At this time best for her to assist her with all her needs due to decreased activity tolerance and endurance. Medication Management Medication Management Comments Pt states does her own. Money Management Money Management Caregiver Provides Assistance Meal Preparation Meal Preparation Comments Pt will need assist at this time. Head Buyer Tobacco Head Buyer Tobacco Comments Pt will need assist at this time. M6 OT- IP Functional Cognition Start: 05/04/22 15:27 Freq: Status: Active Protocol: Document 05/05/22 13:26 [facility] (Rec: 05/05/22 13:37 [facility] [id number]) Cognitive Factors Limiting Selfcare Function Cognitive Ability Level of Alertness Alert,Confusional State Patient Orientation Name,Place,Situation Attention Span Ability Capable of Focused Attention, Capable of Sustained Attention Ability to Follow Commands Able to Follow One Step Commands with Increased Time, Able to Follow One Step Commands with Repetition Cognitive Comments Cognitive Assessment Comments Pt a little more confused today and needing vc to place her hands on the fww handles versus on the front of the FWW . Pt needing safety cue to be aware of objects bumping into on the right side. Pt able to go over energy conservation information with her and her daughter and able to states good understanding. M7 OT- IP Mobility and Balance Start: 05/04/22 15:27 Freq: Status: Active Protocol: Document 05/05/22 13:26 [facility] (Rec: 05/05/22 13:37 [facility] [id number]) OT-Transfer Assessment Sit to and From Stand Sit to and from Stand Minimal Assistance Transfers Transfer Ability Contact Guard Assistance Technique Transfer Destination Chair Transfer Technique Stand Step Pivot Devices Transfer Assistive Devices Front Wheeled Walker Comments Mobility Comments HEIDI to stand to the FWW and HEIDI to help guide the FWW as pt bumping into objects on the right side. OT- Balance Assessment Sitting Balance and Reactions Static Sitting Balance Ability Good Dynamic Sitting Balance Ability Good Standing Balance and Reactions Static Standing Balance Ability Fair Dynamic Standing Balance Ability Fair M8 OT- IP Objective Assessments Start: 05/04/22 15:27 Freq: Status: Active Protocol: Document 05/04/22 15:08 [facility] (Rec: 05/04/22 15:43 [facility] [id number]) OT Gross Range of Motion Upper Extremity Range of Motion ROM Impairments NT OT Strength Comments Strength Comments At least 3-/5 throughout during ADl and mobility needs. M9 OT- IP Assessment and Plan Start: 05/04/22 15:27 Freq: Status: Active Protocol: Document 05/05/22 13:26 [facility] (Rec: 05/05/22 13:37 [facility] [id number]) OT Summary Assessment and Plan Potential Rehabilitation Potential Good Analytic Complexity at Evaluation Moderate Summary OT Impairments Pain,Range of Motion,Strength, Balance,Functional Cognition, Functional Mobility,Dressing, Toileting,Bathing,Toilet Transfers,Shower Transfers, Activity Tolerance Progress Towards Goals Slow Progress due to Medical Issues,Slow Progress due to Activity Tolerance,Slow Progress due to Cognition Assessment Summary Pt a little more confused today and needing more cues for completeness for ADL and FWW safety. Able to go over energy conservation information with pt and her daughter. Pt to go home with 24/ assist and home health. Goals Self-Feeding Goal Independent Grooming Goal Independent Dressing Goal Independent Toileting Goal Independent Bathing Goal Standby Assistance Toilet Transfer Goal Independent Shower Transfer Goal Standby Assistance Patient/Caregiver Education Goal Demonstrate Energy Conservation and Pacing Days to Meet Goals 9 Frequency of Treatment Frequency Of Treatment Once a Day Treatment Plan OT Treatment Plan ADL Training,Functional Cognition Training,Functional Mobility,Patient/Family Education,Discharge Planning Discharge Recommendations OT Discharge Recommendations Home with 24/7 Assist Available,Home Health Home Equipment Needs FWW obtained Transportation Needs at Discharge Private Vehicle
--- NOTE | 2022-05-05 11:39 | PT.IPTN ---
Current Diagnoses Sepsis following a procedure, initial encounter (05/03/22) Physical Therapy Treatment Note M2 PT-IP Current Condition Start: 05/04/22 10:52 Freq: NEEDED Status: Active Protocol: Document 05/04/22 10:10 [facility] (Rec: 05/04/22 11:04 [facility] [id number]) Physical Therapy Current Condition Current Condition Evaluation Date 05/04/22 Treatment Diagnosis s/p fall; neck cellulitis; lung CA; head/neck CA; difficulty in walking Onset Date 05/03/22 M3 PT-IP Subjective Start: 05/04/22 10:52 Freq: NEEDED Status: Active Protocol: Document 05/05/22 11:13 [facility] (Rec: 05/05/22 11:39 [facility] [id number]) Subjective Physical Therapy Visit Type Type Treatment Note Visit Start Time 10:10 Visit Stop Time 10:36 Total Visit Minutes 20 Number of COMP FIELD CASE MANAGER Visits 1 Physical Therapy Visit Comments Patient Comments agreeable to do PT Therapy Pain Assessment Pain When Pain Assessed At Rest Pain Present Pain Present Pain Reported Location Right Shoulder Intensity 3 Scale Used Numeric (0 - 10) Pain Management Techniques Distraction,Modification of Treatment,Re-positioning, Timing of Activity with Medications M4 PT-IP Mobility and Gait Start: 05/04/22 10:52 Freq: NEEDED Status: Active Protocol: Document 05/05/22 11:13 [facility] (Rec: 05/05/22 11:39 [facility] [id number]) PT-Transfer Assessment Sit to and From Stand Sit to and from Stand Standby Assistance,1 Person Assistance,Use of Upper Extremities Equipment Transfer Assistive Device Gait Belt,Front Wheeled Walker Orthotic/Prosthetic Devices or Brace: No Transfers Transfer Destination Chair Transfer Technique ambulated Transfer Ability Level of Assist Standby Assistance,1 Person Assistance,Use of Upper Extremities Comments Mobility Comments Pt on RA O2 at 94%-95% seated and 93%-94% during mobility. Pt educated in PLB which did not change O2 sat much. She will use the front cross bar to lean on to lift herself from the chair. Pt ambulated SBA with IV pole managed by this therapist from the chair to the toilet ~8'. Pt able to complete pericare independently with SBA for assist. Pt then ambulated into hallway to stairs and back to room ~125' using FWW brought from [facility]. Demonstrates good FWW management. As pt was ambulating in hallway her and daughter came out of the waiting room. Upon asking pt how many stairs she had to climb to enter her house the interrupted and stated that he didn't want her on the stairs and that there were only 2 small steps to go up and that he could handle it; he had done this before when she had hip surgery, etc. was adamant about it. then ambulated back to the room SBA with IV assist and sat in the chair. and daughter entered the room and pt was left with all needs within reach. Gait Assessment Gait Gait Assistance Required: Standby Assistance,Contact Guard Assist Distance (Feet) 125 Able to Maintain Weight Bearing Status Yes During Gait Assistive Devices Assistive Device Gait Belt,Front Wheeled Walker Orthotic/Prosthetic Devices or Brace: No Gait Deviations General Gait Pattern Decreased Stride Length, Decreased Feet Clearance,Step- to Gait Factors Limiting Gait Function Factors Limiting Gait Function Decreased Activity Tolerance, Decreased Strength,Limited Range of Motion,Pain,Poor Balance,Poor Safety Awareness, Respiratory Distress Stair Climbing Assessment Comments Stair Climbing Comments Pts refused to let pt attempt stairs. See mobility comments PT-Balance Assessment Sitting Balance and Reactions Static Sitting Balance Ability Normal Dynamic Sitting Balance Ability Good Standing Balance and Reactions Static Standing Balance Ability Fair Dynamic Standing Balance Ability Fair Device Used FWW M5 PT-IP Objective Assessments Start: 05/04/22 10:52 Freq: NEEDED Status: Active Protocol: Document 05/04/22 10:10 [facility] (Rec: 05/04/22 11:04 [facility] [id number]) Orientation Orientation/Cognition Level of Alertness Alert Orientation Name Language Function Ability No Deficits Noted Safety Awareness Decreased Safety Awareness Memory Description Short Term Impaired Gross Range of Motion Lower Extremity ROM Assessment Within Functional Limits Strength Lower Extremity Strength Assessment Within Functional Limits Coordination Assessment Gross Coordination Gross Coordination WNL Muscle Tone Muscle Tone WNL Yes M6 PT-IP Treatment Start: 05/04/22 10:52 Freq: NEEDED Status: Active Protocol: Document 05/05/22 11:13 [facility] (Rec: 05/05/22 11:39 LJ [id number]) Physical Therapy Treatment Education Education Provided Safety M7 PT-IP Assessment and Plan Start: 05/04/22 10:52 Freq: NEEDED Status: Active Protocol: Document 05/05/22 11:13 [facility] (Rec: 05/05/22 11:39 LJ [id number]) PT Summary Assessment and Plan Potential Rehabilitation Potential Fair Summary Impairments Pain,ROM,Strength,Balance, Coordination,Sensation,Tone, Cognition,Bed Mobility, Transfers,Gait,Activity Tolerance Assessment Summary Pt moving slowly unable to tolerate much activity. Improvement in O2 stauration. On RA O2 at 94%-95%. Pts spouse and daughter observing treatment. states he has taken care of her for other medical situations and will do so again. refused to allow pt to trial stairs stating he can take care of it. (see mobility section). Pt will have 24/7 assist at home. will likely not want to participate in CGT. Goals Bed Mobility Goal Independent Transfer Goal Independent,Front Wheeled Walker Gait Goal Independent,Front Wheel Walker Gait Distance 150 Other Goals ambulation without AD 150 ft SBA up/down 2 steps R vertical bar SBA Days to Meet Goals 10 Frequency of Treatment Frequency Of Treatment Once a Day Treatment Plan Physical Therapy Treatment Plan Bed Mobility Training,Transfer Training,Gait Training, Therapeutic Exercise,Balance Retraining,Discharge Planning, Hot or Cold Pack,Neuromuscular Re-ed,Coordination Retraining Precautions Other Precautions O2 sat; falls Recommendations To Nursing Amount of Assist Needed 1 Person Assist Discharge Recommendations PT Discharge Recommendations Home with 24/7 Assist Available,Home Health
--- NOTE | 2022-05-05 11:39 | PT.IPTN ---
Current Diagnoses Sepsis following a procedure, initial encounter (05/03/22) Physical Therapy Treatment Note M2 PT-IP Current Condition Start: 05/04/22 10:52 Freq: NEEDED Status: Active Protocol: Document 05/04/22 10:10 AB (Rec: 05/04/22 11:04 AB [id number]) Physical Therapy Current Condition Current Condition Evaluation Date 05/04/22 Treatment Diagnosis s/p fall; neck cellulitis; lung CA; head/neck CA; difficulty in walking Onset Date 05/03/22 M3 PT-IP Subjective Start: 05/04/22 10:52 Freq: NEEDED Status: Active Protocol: Document 05/05/22 11:13 LJ (Rec: 05/05/22 11:39 LJ [id number]) Subjective Physical Therapy Visit Type Type Treatment Note Visit Start Time 10:10 Visit Stop Time 10:36 Total Visit Minutes 20 Number of RIVER GUIDE Visits 1 Physical Therapy Visit Comments Patient Comments agreeable to do PT Therapy Pain Assessment Pain When Pain Assessed At Rest Pain Present Pain Present Pain Reported Location Right Shoulder Intensity 3 Scale Used Numeric (0 - 10) Pain Management Techniques Distraction,Modification of Treatment,Re-positioning, Timing of Activity with Medications M4 PT-IP Mobility and Gait Start: 05/04/22 10:52 Freq: NEEDED Status: Active Protocol: Document 05/05/22 11:13 LJ (Rec: 05/05/22 11:39 LJ [id number]) PT-Transfer Assessment Sit to and From Stand Sit to and from Stand Standby Assistance,1 Person Assistance,Use of Upper Extremities Equipment Transfer Assistive Device Gait Belt,Front Wheeled Walker Orthotic/Prosthetic Devices or Brace: No Transfers Transfer Destination Chair Transfer Technique ambulated Transfer Ability Level of Assist Standby Assistance,1 Person Assistance,Use of Upper Extremities Comments Mobility Comments Pt on RA O2 at 94%-95% seated and 93%-94% during mobility. Pt educated in PLB which did not change O2 sat much. She will use the front cross bar to lean on to lift herself from the chair. Pt ambulated SBA with IV pole managed by this therapist from the chair to the toilet ~8'. Pt able to complete pericare independently with SBA for assist. Pt then ambulated into hallway to stairs and back to room ~125' using FWW brought from [facility]. Demonstrates good FWW management. As pt was ambulating in hallway her and daughter came out of the waiting room. Upon asking pt how many stairs she had to climb to enter her house the interrupted and stated that he didn't want her on the stairs and that there were only 2 small steps to go up and that he could handle it; he had done this before when she had hip surgery, etc. was adamant about it. then ambulated back to the room SBA with IV assist and sat in the chair. and daughter entered the room and pt was left with all needs within reach. Gait Assessment Gait Gait Assistance Required: Standby Assistance,Contact Guard Assist Distance (Feet) 125 Able to Maintain Weight Bearing Status Yes During Gait Assistive Devices Assistive Device Gait Belt,Front Wheeled Walker Orthotic/Prosthetic Devices or Brace: No Gait Deviations General Gait Pattern Decreased Stride Length, Decreased Feet Clearance,Step- to Gait Factors Limiting Gait Function Factors Limiting Gait Function Decreased Activity Tolerance, Decreased Strength,Limited Range of Motion,Pain,Poor Balance,Poor Safety Awareness, Respiratory Distress Stair Climbing Assessment Comments Stair Climbing Comments Pts refused to let pt attempt stairs. See mobility comments PT-Balance Assessment Sitting Balance and Reactions Static Sitting Balance Ability Normal Dynamic Sitting Balance Ability Good Standing Balance and Reactions Static Standing Balance Ability Fair Dynamic Standing Balance Ability Fair Device Used FWW M5 PT-IP Objective Assessments Start: 05/04/22 10:52 Freq: NEEDED Status: Active Protocol: Document 05/04/22 10:10 AB (Rec: 05/04/22 11:04 AB [id number]) Orientation Orientation/Cognition Level of Alertness Alert Orientation Name Language Function Ability No Deficits Noted Safety Awareness Decreased Safety Awareness Memory Description Short Term Impaired Gross Range of Motion Lower Extremity ROM Assessment Within Functional Limits Strength Lower Extremity Strength Assessment Within Functional Limits Coordination Assessment Gross Coordination Gross Coordination WNL Muscle Tone Muscle Tone WNL Yes M6 PT-IP Treatment Start: 05/04/22 10:52 Freq: NEEDED Status: Active Protocol: Document 05/05/22 11:13 ALFREDO (Rec: 05/05/22 11:39 LJ [id number]) Physical Therapy Treatment Education Education Provided Safety M7 PT-IP Assessment and Plan Start: 05/04/22 10:52 Freq: NEEDED Status: Active Protocol: Document 05/05/22 11:13 ALFREDO (Rec: 05/05/22 11:39 LJ [id number]) PT Summary Assessment and Plan Potential Rehabilitation Potential Fair Summary Impairments Pain,ROM,Strength,Balance, Coordination,Sensation,Tone, Cognition,Bed Mobility, Transfers,Gait,Activity Tolerance Assessment Summary Pt moving slowly unable to tolerate much activity. Improvement in O2 stauration. On RA O2 at 94%-95%. Pts spouse and daughter observing treatment. states he has taken care of her for other medical situations and will do so again. refused to allow pt to trial stairs stating he can take care of it. (see mobility section). Pt will have 24/7 assist at home. will likely not want to participate in CGT. Goals Bed Mobility Goal Independent Transfer Goal Independent,Front Wheeled Walker Gait Goal Independent,Front Wheel Walker Gait Distance 150 Other Goals ambulation without AD 150 ft SBA up/down 2 steps R vertical bar SBA Days to Meet Goals 10 Frequency of Treatment Frequency Of Treatment Once a Day Treatment Plan Physical Therapy Treatment Plan Bed Mobility Training,Transfer Training,Gait Training, Therapeutic Exercise,Balance Retraining,Discharge Planning, Hot or Cold Pack,Neuromuscular Re-ed,Coordination Retraining Precautions Other Precautions O2 sat; falls Recommendations To Nursing Amount of Assist Needed 1 Person Assist Discharge Recommendations PT Discharge Recommendations Home with 24/7 Assist Available,Home Health
--- NOTE | 2022-05-05 15:07 | CM.DPC ---
DCP HH Planning: Per MD, pt not yet stable for d/c home yet today but likely in 1-2 days pending progress and pt still requiring oxygen and IV-Abx and cultures pending. Per PT/OT, recommending HH and spouse assist at d/c. SW met bedside with pt, spouse, and adult Dtr and explained role and discussed HH recommendations, services and frequency and provided HH Choice list via Ipad and paper and spouse and pt agreeable with HH and have no HH hx and reviewed list and no HH preference. SW made Sig HH referral based on Vendor Calendar and faxed referral and F2F completed but not faxed yet. SW received a call from Beata, Onc Pt Navigator, who states she spoke to spouse today who is anxious to get Oncology tx started and pt is on the schedule for [facility] appointment on Tue05/10/22 next week and Beata will see if Oncologist Dr. Valencia can call spouse just to touch base tomorrow and answer some questions. Plan: SW to follow for plan of d/c home in 1-2 days with spouse assist and new Sig HH referral made and will need to fax F2F, HH orders, and d/c summary. Ashley Boyle, CLIN ASST
[2022-05-05] MEDS: IBUPROFEN 600 MG TABLET PO (18:12)
[2022-05-05] MEDS: HYDROCODONE/ACET 5/325 TABLET 1 TAB PO ×2 (18:53→23:04)
[2022-05-06] VITALS (8 sets, daily range): BP systolic 118–160; BP diastolic 60–92; PULSE 56–95; RESP 17–19; TEMP 35.8–37.6; O2SAT 90–98
[2022-05-06] MEDS: PIPERACILLIN/TAZO 3.375 GM in SODIUM CHLORIDE 0.9% 100 ML IV ×2 (02:28→11:41)
[2022-05-06] MEDS: HYDROCODONE/ACET 5/325 TABLET 1 TAB PO ×2 (02:55→16:19)
[2022-05-06 04:46] LABS: Add Manual Diff / Slide Review YES; Hematocrit 35.9 % (36-46); Hemoglobin 11.9 g/dL (12.0-16.0); Mean Corpuscular HGB Conc 33.3 % (30-36); Mean Corpuscular Hemoglobin 30.5 PG (26-34); Mean Corpuscular Volume 91.6 fL (80-100); Platelet Count 297 X10^3/uL (150-400); Red Blood Cell Count 3.92 X10^6/uL (4.0-5.2); Red Cell Distribution Width 14.9 % (11.6-14.8)
[2022-05-06] MEDS: diazePAM 5 MG TABLET PO ×2 (04:48→20:21)
[2022-05-06 04:51] LABS: Alanine Aminotransferase 17 IU/L (<35); Alkaline Phosphatase 82 U/L (38-126); Aspartate Aminotransferase 16 IU/L (14-36); BUN Creatinine Ratio 30.8 (6-22); Bilirubin Total 0.5 mg/dL (0.2-1.3); Blood Urea Nitrogen 20 mg/dL (7-17); Calcium 8.5 mg/dL (8.4-10.2); Carbon Dioxide 33 mmol/L (22-32); Chloride 98 mmol/L (98-107); Estimated Glomerular Filt Rate > 60 mL/min (>60); Globulin 2.9 g/dL (1.7-4.1); Glucose 108 mg/dL (80-110); HEMOLYSIS < 15 (0-50); Potassium 3.3 mmol/L (3.4-5.1); Sodium 135 mmol/L (137-145); Total Protein 5.9 g/dL (6.3-8.2)
--- NOTE | 2022-05-06 04:52 | PC.NURSE ---
C/O anxiety & left shoulder muscle spasms. States I have no chest pain, but I'm very restless & having spasms to my left shoulder Valium 5 mg. PO admin. will monitor.
[2022-05-06] MEDS: CLOTRIMAZOLE TROCHE 10 MG PO ×2 (05:14→19:35)
--- NOTE | 2022-05-06 05:41 | PC.NURSE ---
Dr. Allison called to report telemetry reading SA, Freq/bigeminal PVC's, PAC's & Potassium level of 3.3. Also reported pt. anxiety & C/O left shoulder spasms> Medicated her with 5 mg. of Valium. Orders received to admin. 20 meq Potassium PO & check Magnesium level. Will implement order & reported to coordinator.
[2022-05-06 05:50] LABS: Magnesium 2.2 mg/dL (1.6-2.3)
[2022-05-06] MEDS: POTASSIUM CHLORIDE 20 MEQ TAB PO ×2 (06:00→16:19)
[2022-05-06 06:02] LABS: Neutrophils Absolute Manual 18500 /uL (3000-5900); RBC Morphology Normal Morphology; Total Cells Counted 100
[2022-05-06] MEDS: SODIUM CHLORIDE 0.9% FLUSH 10 ML IV ×3 (06:36→20:22)
--- NOTE | 2022-05-06 07:02 | CM.MNRNOTE ---
C/O dyspnea, rechecked SPO2 90-91%. 2 liters 02/NC & saturation 92-95%. Reportd to day RN.
--- NOTE | 2022-05-06 08:51 | P.PN_ITS ---
Subjective Subjective Date Patient Seen: 05/06/22 Time Patient Seen: 08:51 Interval history: Patient had a difficult night last night. She was unable to sleep. She was on room air yesterday and then required oxygen overnight which she has had 2 every night. She is feeling tired and wanting to go home. She is frustrated that she is feeling so bad. She does not have much of an appetite but her is assisting her in eating. Patient denies chest pain or shortness of breath. She had significant diuresis with Lasix yesterday and then again today. No fever, no chills. She is currently resting comfortably with 2 L nasal cannula oxygen. 12 point review of systems is otherwise negative Exam Vital Signs (past 8 hours): - 05/06/22 04:20 05/06/22 08:00 05/06/22 08:00 Temperature 97.4 F L 97.8 F Pulse Rate 71 66 Respiratory Rate 19 18 Blood Pressure 160/60 H 118/83 Pulse Oximetry 94 96 94 Oxygen Flow Rate 0 2 Fraction of Inspired Oxygen 44 SaO2/FiO2 Ratio 215 Oxygen Delivery Method Nasal Cannula Oxygen Flow Rate 2 Narrative Exam Narrative: Facial wounds are healing. Patient is alert and oriented x3. She has tachypnea but no intercostal retractions or nasal flaring Oropharynx unremarkable. Neck: Patient with persistent enlarged lymph node with serosanguineous drainage. There is no significant erythema surrounding it. It is hard and firm. Chest: Scattered rhonchi decreased breath sounds at the bases Cor: Unchanged murmur regular rate. Abdomen: Positive bowel sounds soft Extremities: Bilateral upper extremity still with 1 to 2+ pitting edema. This is not improved with IV Lasix diuresis and patient has had adequate diuresis Lower extremities are not swollen and pulses are intact. Neurologic exam is nonfocal Objective Labs 05/06/22 04:22 05/06/22 04:22 Labs: Laboratory Results - last 24 hr 05/06/22 05/06/22 05/06/22 04:22 04:22 04:22 WBC 25.0 H RBC 3.92 L Hgb 11.9 L Hct 35.9 L MCV 91.6 MCH 30.5 MCHC 33.3 RDW 14.9 H Plt Count 297 Neut % (Auto) Not Reportable Lymph % (Auto) Not Reportable [place] % (Auto) Not Reportable Eos % (Auto) Not Reportable Baso % (Auto) Not Reportable Lymph # (Auto) Not Reportable [place] # (Auto) Not Reportable Baso # (Auto) Not Reportable Total Counted 100 Seg Neutrophils % 69.0 Band Neutrophils % 5.0 Lymphocytes % (Manual) 6.0 L Monocytes % (Manual) 5.0 Eosinophils % (Manual) 13.0 H Basophils % (Manual) 1.0 Myelocytes % 1.0 H Neutrophils # (Manual) 52296 H RBC Morphology Normal morphology Sodium 135 L Potassium 3.3 L Chloride 98 Carbon Dioxide 33 H BUN 20 H Creatinine 0.65 Estimated GFR > 60 BUN/Creatinine Ratio 30.8 H Glucose 108 Calcium 8.5 Magnesium 2.2 Total Bilirubin 0.5 AST 16 ALT 17 Alkaline Phosphatase 82 Total Protein 5.9 L Albumin 3.0 L Globulin 2.9 Albumin/Globulin Ratio 1.0 PFSH Medical History Facet arthropathy, cervical Fractures (~2017) HLD (hyperlipidemia) Measles (~194) Staph aureus infection (04/09/22) Vertigo (~2013) Vertigo Surgical History Anesthesia History of biopsy (03/24/22) History of hip replacement (~2016) History of hysterectomy (~1966) Family History Father Cancer Brother Melanoma Mother Lung cancer Social History household members: spouse Smoking Status: Former smoker alcohol intake: current substance use type: does not use Assessment & Plan Assessment & Plan narrative: Assessment & Plan narrative: # 1? infected supraclavicular LN biopsy site with sepsis syndrome including hypoxemia, leukocytosis, tachycardia stable.? Patient clinically improving significantly but still with white blood cell count slow to come down.? Blood cultures prelim are negative.? We do not have other culture sites.? No other site for infectious process. Plan: Patient has now been treated for essentially 4 days with IV vancomycin and Zosyn with persistent leukocytosis. Clinically she seems to be improved however is continued to be hypoxic. Due to this I have consulted Dr. Stark to get his opinion about antibiotics and infection. 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 Osman.? Patient was supposed to have her 1st appointment with him on Tuesday but was in the hospital.? We will touch base with them to help facilitate outpatient evaluation KIM and see if he has any recommendations for her while she is inpatient. # 3 Hypoxemia with history of COPD with concern for post obstructive pneumonia.? She has been weaned down on oxygen but is still requiring oxygen. She was given another dose of IV Lasix today and did have significant diuresis but was not a ble to be weaned off her oxygen..? Will repeat BnP tomorrow continue montelukast with prn duonebs Continue per respiratory therapy Appreciate Dr. Marie input. He added doxycycline for atypical organisms. # for HLD stable continue home statin Assessment 5.? V-tach, asymptomatic, 10 beats.? Patient was asymptomatic.? She is not had a recurrence.? We check TSH and magnesium and electrolytes all no rmal.? Echo does not show significant change from September of 2019 though worsening regurgitation, mitral. There is also evidence of decreased ejection fraction which I believe is stable. Plan:? Will give another dose of Lasix. We will continue with telemetry. Once we clear infection and discharge patient and begin therapy for her cancer will likely need to have evaluation by Cardiology. 6. Shoulder pain suspect related to infected lymph node but if it is not improving with treatment of her infection we will do further workup. Assessment 7.? Severe acute on chronic malnutrition secondary to acute illness with COVID and also episodes of diarrhea as well as new diagnosis of cancer Plan: Appreciate dietary consult. Patient was encouraged to use protein supplements etc.. Assessment 8.? Acute systolic heart failure with slightly decreased ejection fraction from her previous echo in 2019. Plan:? We will continue to diurese.? Consider beta dimas but will have to use cautiously due to COPD. Assessment 9. Hypokalemia improved but still present Plan: Begin routine supplement due to IV Lasix again today. Will recheck in a.m.. Assessment 10. Anxiety and air hunger Plan: She is been on Valium. We will increase his frequency and hopes that this will help with her sleep. Addendum: I met with patient twice today. Reviewed CT scan and subsequent ultrasound showing jugular vein clot bilaterally which would clearly explain the etiology of her upper extremity edema. Plan as per Dr. Stark. We will start Lovenox and then will plan to transition to Eliquis 5 mg twice daily on discharge. We discussed side effects of blood thinners and the rationale and patient has been understands. For hypoxemia will stop the antibiotics and start cefdinir and continue the doxycycline for suspected post obstructive pneumonia. We will continue to monitor for fluid overload and will reassess in a.m.. 65 minutes spent with patient today meeting with patient discussing with physician, nursing and formulating a plan and documenting Time Spent With Patient Critical Care time: I spent a total of [] minutes of critical care time on this patient's care today; this time is exclusive of procedural time. Quality VTE Deep Vein Thrombosis/Pulmonary Embolism Present on Admission: No
--- NOTE | 2022-05-06 09:01 | PM.CN ---
History of Present Illness Consult details Date Patient Seen: 05/06/22 Chief complaint: fell face down on floor last night Narrative: Erika Patel is an 81-year-old female with PMH of recently diagnosed metastatic non-small cell lung cancer, right supraclavicular mass s/p biopsy, COPD, vertigo who presented to the ED on 05/03 for draining mass on right neck. Patient has known mets to supraclavicular lymph node and underwent biopsy with general surgery on 03/24 then developed a small abscess which was I&D'd in the ED on 04/09. Cultures grew MSSA. She was placed on po keflex. I was consulted for second opinion on patient's infection/sepsis. at bedside and states the biopsy site has been draining ever since the I&D which is sometimes clear and sometimes purulent. Patient cannot start chemo until infection is improved. Patient currently states she is having alot of pain in her right trapezius and wonders if it is the cancer. She is also having alot of anxiety. She denies CP, NV, and abd pain. Has had 2 bouts of diarrhea today but that was after being constipated and getting laxatives. Meds Home Medications and Allergies Home Medications Medication Instructions Recorded Confirmed Type All Day Calcium 600 mg PO DAILY 04/26/22 05/03/22 History Estroven 1 tab PO DAILY 04/26/22 05/03/22 History ascorbic acid (vitamin C) 1,000 mg 1,000 mg PO DAILY 04/26/22 05/03/22 History capsule bacillus coagulans-inulin 1 1 cap PO DAILY 04/26/22 05/03/22 History billion cell-250 mg capsule (Probiotic with Prebiotic) cholecalciferol (vitamin D3) 50 50 mcg PO DAILY 04/26/22 05/03/22 History mcg (2,000 unit) tablet diazepam 5 mg tablet 5 mg PO BEDTIME PRN Sleep 04/26/22 05/03/22 History magnesium 200 mg tablet 400 mg PO DAILY 04/26/22 05/03/22 History melatonin 5 mg tablet 5 mg PO BEDTIME PRN Sleep 04/26/22 05/03/22 History pravastatin 40 mg tablet 40 mg PO DAILY 04/26/22 05/03/22 History vitamin B complex (B 1 tab PO DAILY 04/26/22 05/03/22 History Complex-Vitamin B12 tablet) Dulcolax Stool Softener (dss) 1 tab PO TID 04/30/22 05/03/22 History montelukast 10 mg tablet 10 mg PO DAILY 05/03/22 05/03/22 History Allergies Allergy/AdvReac Type Severity Reaction Status Date / Time adhesive tape [ADHESIVE TAPE] Allergy Intermediate PLASTIC Verified 04/30/22 12:52 TAPE-RASH latex [LATEX] Allergy Intermediate RASH Verified 04/30/22 12:52 Review of Systems Review of Systems Narrative: All other systems reviewed with the patient and are negative unless otherwise stated. Exam Vital Signs (past 8 hours): - 05/06/22 04:20 05/06/22 08:00 05/06/22 08:00 Temperature 97.4 F L 97.8 F Pulse Rate 71 66 Respiratory Rate 19 18 Blood Pressure 160/60 H 118/83 Pulse Oximetry 94 96 94 Oxygen Flow Rate 0 2 Fraction of Inspired Oxygen 44 SaO2/FiO2 Ratio 215 Oxygen Delivery Method Nasal Cannula Oxygen Flow Rate 2 Narrative Exam Narrative: GEN: mild distress, very anxious HEENT: moist mucous membranes, PERRL NECK: large mass on right neck base with small opening draining serosanguinous fluid CV: regular rate, possibly irregular rhythm, no murmurs PULM: clear bilaterally ABD: soft, nontender, nondistended, no organomegaly EXT: warm and well perfused with no edema NEURO: awake, alert, oriented, no focal deficits Objective Labs 05/06/22 04:22 05/06/22 04:22 Labs: Laboratory Results - last 24 hr 05/06/22 05/06/22 05/06/22 04:22 04:22 04:22 WBC 25.0 H RBC 3.92 L Hgb 11.9 L Hct 35.9 L MCV 91.6 MCH 30.5 MCHC 33.3 RDW 14.9 H Plt Count 297 Neut % (Auto) Not Reportable Lymph % (Auto) Not Reportable [place] % (Auto) Not Reportable Eos % (Auto) Not Reportable Baso % (Auto) Not Reportable Lymph # (Auto) Not Reportable [place] # (Auto) Not Reportable Baso # (Auto) Not Reportable Total Counted 100 Seg Neutrophils % 69.0 Band Neutrophils % 5.0 Lymphocytes % (Manual) 6.0 L Monocytes % (Manual) 5.0 Eosinophils % (Manual) 13.0 H Basophils % (Manual) 1.0 Myelocytes % 1.0 H Neutrophils # (Manual) 55366 H RBC Morphology Normal morphology Sodium 135 L Potassium 3.3 L Chloride 98 Carbon Dioxide 33 H BUN 20 H Creatinine 0.65 Estimated GFR > 60 BUN/Creatinine Ratio 30.8 H Glucose 108 Calcium 8.5 Magnesium 2.2 Total Bilirubin 0.5 AST 16 ALT 17 Alkaline Phosphatase 82 Total Protein 5.9 L Albumin 3.0 L Globulin 2.9 Albumin/Globulin Ratio 1.0 PFSH Medical History Facet arthropathy, cervical Fractures (~2017) HLD (hyperlipidemia) Measles (~194) Staph aureus infection (04/09/22) Vertigo (~2013) Vertigo Surgical History Anesthesia History of biopsy (03/24/22) History of hip replacement (~2016) History of hysterectomy (~1966) Family History Father Cancer Brother Melanoma Mother Lung cancer Social History household members: spouse Tobacco & Substance Use Smoking Status: Former smoker alcohol intake: current substance use type: does not use Assessment & Plan Assessment & Plan narrative: # purulent cellulitis and abscess of right neck s/p LN biopsy on 03/24 -presented to ED on 04/09 due to purulent drainage, underwent I&D and cultures grew MSSA, treated with po keflex as outpatient -now returned with ongoing cellulitis of right neck, on broad spectrum abx without improvement in leukocytosis lending concern for abscess -neck US ordered to rule out abscess, does not show drainable fluid collection -check MRSA swab and if negative can stop vanc, watch kidney function with vanc/zosyn combo -can likely deescalate from zosyn to rocephin at some point soon -obtain CT soft tissue neck w contrast to eval mass further # possible post-obstructive PNA with hypoxic respiratory failure -patient currently on 2L NC -CXR with interstitial opacities of left lung suspicious for PNA -will add doxy for atypical coverage, 100mg BID x5 days (avoiding azithro due to pt on fluconazole) -obtain sputum culture if able # sepsis, improving -presented to ED on 05/03 with tachycardiac, WBC 25 and febrile to 100.5F -persistent leukocytosis, will obtain imaging as above to rule out abscess -blood cultures negative at 24 hours -will make sure she's not having diarrhea which could suggest C. diff # metastatic non-small cell lung cancer -intially diagnosed in Mar 2022 after patient presented with right supraclavicular mass -biopsies consistent with large cell undifferentiated epithilioid maliganancy, source initially unclear but after lung mass discovered oncology feels lung is primary. Unclear if squamous cell or adenocarcinoma per oncology notes. -set to start outpatient chemotherapy with Dr. Erik mata, PICC line in place as port avoided due to neck mass -f/u with oncology on discharge for chemo # right trapezius pain -likely due to muscle pain or the mass impinging a nerves -lidoderm patch daily to painful area # possible irregular rhythm -HR appeared to be irregular on exam -obtain ECG to rule out A-fib # hypokalemia -K 3.3, mag 2.2 -start supp K 20mEq BID -daily BMP's # COPD -continue inhalers # HLD -continue statin # Severe Acute on Chronic Protein Calorie Malnutrition r/t inadequate PO intake, GI symptoms (diarrhea) aeb BMI 17.2 (severe), 15% unintentional weight loss in <9mo, pt with 2mo diarrhea after covid dx, pt c recent dx lung cancer and post op infection, pt meeting <50% EER with taste changes and poor appetite. -The patient is at much higher risk for medical and surgical complications because of malnutrition. This increases the difficulty and complexity of medical and surgical interventions and increases the chances of poor outcomes such as morbidity and mortality. Code status is full code. COVID negative. DVT prophylaxis with Lovenox. Proxy is Darrel. I have reviewed home meds and used all available resources to reconcile the home meds. Medicine will continue to follow. Thank you for allowing us to participate in the care of this patient. Should you have any further questions, do not hesitate to speak with us directly or call us. Time Spent With Patient Critical Care time: I spent a total of [] minutes of critical care time on this patient's care today; this time is exclusive of procedural time.
[2022-05-06] MEDS: PRAVASTATIN 20 MG TABLET 40 MG PO (09:07)
[2022-05-06] MEDS: MAGNESIUM OXIDE 400 MG TABLET PO (09:07)
[2022-05-06] MEDS: MONTELUKAST 10 MG TABLET PO (09:07)
[2022-05-06] MEDS: ASCORBIC ACID 500 MG TABLET 1000 MG PO (09:07)
[2022-05-06] MEDS: ENOXAPARIN 40 MG/0.4 ML SYRINGE SUBCUT (09:08)
[2022-05-06] MEDS: CHOLECALCIFEROL (VITAMIN D3) 1,000 UNIT TABLET 2000 UNIT PO (09:08)
[2022-05-06] MEDS: FLUCONAZOLE 100 MG TABLET PO (09:08)
--- NOTE | 2022-05-06 09:23 | DI.US.S_ITS ---
PROCEDURE: US SOFT TISSUE HEAD AND NECK INDICATIONS: RIGHT NECK CELLULITIS RULE OUT ABSCESS TECHNIQUE: Real-time scanning was performed of the neck region of interest, with image documentation. COMPARISON: [facility], CT, CT SOFT TISSUE NECK W CON, 04/14/2022, 14:08. [facility], CR, XR CHEST 1V, 05/03/2022, 9:54. FINDINGS: Examination of right shoulder soft tissue near right clavicle shows a complex heterogeneously hypoechoic structure measures 5.2 x 5.1 x 6 cm in size. Internal vascularity is seen. Adjacent soft tissue edema is also seen in this area. IMPRESSION: Complex hypoechoic mass in right shoulder soft tissue adjacent to right clavicle at patient's reported area of palpable lump as described above, consistent with patient's known large soft tissue mass in this area seen on previous CT neck soft tissue. No discrete drainable abscess collection is seen. Dictated by: Cristino Delgado M.D. on 05/06/2022 at 11:26 Approved by: Cristino Delgado M.D. on 05/06/2022 at 11:30
[2022-05-06] MEDS: FUROSEMIDE 40 MG/4 ML VIAL IV (10:01)
[2022-05-06] MEDS: DOXYCYCLINE HYCLATE 100 MG TABLET PO ×2 (10:25→20:21)
--- NOTE | 2022-05-06 11:07 | PT-IP ANOTE ---
[employer] spoke with hospitalist Dr Stark and recommended pt on medical hold PT today due to draining mass and needing medical support at this time. Pt not seen today, will recheck tomorrow if ok to progress pt.
--- NOTE | 2022-05-06 11:20 | OT.IPNOTE ---
Medical hold due to mass draining on pt's neck, hold for OT treatment today.
--- NOTE | 2022-05-06 12:50 | DI.CT.S_ITS ---
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 Additional oblique axial 3.0 mm sections acquired through the pharynx. 3 mm thick coronal and sagittal reformats were generated. For radiation dose reduction, the following was used: automated exposure control. COMPARISON: [facility], CT, CT CHEST ABD PEL W CON, 04/14/2022, 14:08. [facility], CT, CT SOFT TISSUE NECK W CON, 04/14/2022, 14:08. [facility], US, US SOFT TISSUE HEAD AND NECK, 05/06/2022, 9:58. FINDINGS: Image quality: This examination is limited by involuntary motion artifact. Lymph nodes: There is an enlarged conglomerated group of lymph nodes seen within the right supraclavicular region that measures at least 7 x 6 mm. This is highly heterogeneous and demonstrates cystic elements along its medial aspect. Regional mass effect can be seen, including upon the right common carotid artery the right thyroid. Numerous prominent enlarged mediastinal lymph nodes are partially seen. For example, there is a right paratracheal lymph node seen that measures 4.7 x 3.8 cm, which previously measured 3.8 x 2.7 cm. Vessels: No significant arterial abnormality can be seen. Potential filling defects are seen within both jugular veins. Neck spaces: The oropharynx, nasopharynx, and pharynx demonstrate no mucosal lesions. The vocal cords, false vocal cords, pyriform sinuses, epiglottis, vallecula, and tongue base all appear normal. Extramucosal spaces appear unremarkable. Glands: The parotid and submandibular glands appear normal. Thyroid gland demonstrates no significant abnormality. Miscellaneous: Visualized brain and orbits appear normal. Lung apices appear clear. The superficial soft tissues appear normal. There is a left-sided PICC line partially seen, with the tip within the medial aspect of the left brachiocephalic vein. Small bilateral pleural effusions are seen, left larger than right. An area of left upper lobe consolidation can be seen. Bones: No suspicious bony lesions. Visualized sinuses and mastoids appear unremarkable. Extensive cervical spine degenerative changes are seen. IMPRESSION: There is a right supraclavicular mass, which is highly heterogeneous, with cystic elements medially. This is attributed to a metastatic lymph node. This is felt most likely to be necrotic. Differential diagnosis includes infection, yet this is considered to be less likely based upon the imaging appearance. This lymph node is clearly increased in size compared to the 04/14/2022 examination. Extensive enlarged mediastinal lymph nodes are also seen, which are also progressed compared to the recent prior CT. There are filling defects seen within both jugular veins, which are highly suspicious for thrombosis within the jugular veins. If clinically appropriate, please consider a follow-up ultrasound for confirmation. Small bilateral pleural effusions are seen. Nodular opacity seen within the left upper lobe. Differential diagnosis includes infection or additional neoplasm. Additional findings: Extensive cervical spine degenerative change Left-sided PICC line Dictated by: Federico Smallwood M.D. on 05/06/2022 at 12:45 Approved by: Federico Smallwood M.D. on 05/06/2022 at 12:55
[2022-05-06] MEDS: OXYCODONE IR 10 MG TABLET PO (13:23)
--- NOTE | 2022-05-06 15:18 | DI.US.S_ITS ---
PROCEDURE: US PERIPH VENOUS UP EXTREM KEITH INDICATIONS: QUESTIONABLE BILATERAL INTERNAL JUGULAR THOMBOSES ON CT TECHNIQUE: Real-time imaging, as well as color and pulse Doppler interrogation, was performed of both upper extremity deep veins from the inferior neck to the antecubital fossa. COMPARISON: [facility], CT, CT SOFT TISSUE NECK W CON, 05/06/2022, 12:59. FINDINGS: Extensive upper extremity deep venous thrombosis can be seen on both sides, from the internal jugular vein through the brachial/basilic veins. On the left, a PICC line can be seen. IMPRESSION: Extensive bilateral upper extremity deep venous thrombosis can be seen, including involving both jugular veins. Note: Concordant preliminary findings given by the counter intelligence technician upon the completion of the examination to nurse and physician. Dictated by: Federico Smallwood M.D. on 05/06/2022 at 17:12 Approved by: Federico Smallwood M.D. on 05/06/2022 at 17:14
[2022-05-06] MEDS: LIDOCAINE PATCH 1 EACH ADH..PATCH TOP (15:25)
[2022-05-06] MEDS: VANCOMYCIN 1,000 MG/200 ML PIGGYBACK 200 MG IV (15:29)
--- NOTE | 2022-05-06 15:46 | PC.NURSE ---
Pt resting at intervals Med for discomfort w/ minimal relief. MALIK PICC intact/patent. Assisted to BSC Call light w/in reach, bed alarm on for pt safety. Continue w/plan of care.
[2022-05-06] MEDS: ENOXAPARIN 60 MG/0.6 ML SYRINGE 50 MG SUBCUT (19:35)
[2022-05-06] MEDS: DOCUSATE 100 MG CAPSULE PO (20:21)
[2022-05-06] MEDS: CEFDINIR 300 MG CAPSULE PO (20:21)
[2022-05-06] MEDS: MELATONIN 3 MG TABLET 6 MG PO (22:42)
[2022-05-06] MEDS: VANCOMYCIN TROUGH 1 REQUEST MISC (22:43)
--- NOTE | 2022-05-06 23:40 | PC.NURSE ---
C/O insomnia after medicated with 5 mg. of Valium PO. @ 2020. States the Valium did not work. Requested Melatonin 6 mg. admin. @ 2241,will cont. POC & monitor.
[2022-05-07] VITALS: BP 148/63; PULSE 65; RESP 19; TEMP 37; O2SAT 91
[2022-05-07 04:39] VITALS: BP 128/81; PULSE 62; RESP 21; TEMP 36.5; O2SAT 93
[2022-05-07] MEDS: CLOTRIMAZOLE TROCHE 10 MG PO ×2 (04:57→14:02)
[2022-05-07] MEDS: SODIUM CHLORIDE 0.9% FLUSH 10 ML IV ×2 (04:58→09:32)
[2022-05-07 05:15] LABS: Alanine Aminotransferase 18 IU/L (<35); Albumin 2.9 g/dL (3.5-5.0); Alkaline Phosphatase 79 U/L (38-126); Aspartate Aminotransferase 17 IU/L (14-36); BUN Creatinine Ratio 41.5 (6-22); Bilirubin Total 0.4 mg/dL (0.2-1.3); Blood Urea Nitrogen 22 mg/dL (7-17); Calcium 8.4 mg/dL (8.4-10.2); Carbon Dioxide 31 mmol/L (22-32); Chloride 100 mmol/L (98-107); Estimated Glomerular Filt Rate > 60 mL/min (>60); Globulin 2.9 g/dL (1.7-4.1); Glucose 119 mg/dL (80-110); HEMOLYSIS 18 (0-50); Potassium 3.3 mmol/L (3.4-5.1); Sodium 137 mmol/L (137-145); Total Protein 5.8 g/dL (6.3-8.2)
--- NOTE | 2022-05-07 06:11 | RT ---
At 0600 on 05/07/22, pt refused EKG, RN notified.
[2022-05-07 06:22] LABS: Add Manual Diff / Slide Review YES; Hematocrit 35.2 % (36-46); Hemoglobin 11.7 g/dL (12.0-16.0); Mean Corpuscular HGB Conc 33.3 % (30-36); Mean Corpuscular Hemoglobin 30.5 PG (26-34); Mean Corpuscular Volume 91.6 fL (80-100); Platelet Count 304 X10^3/uL (150-400); Red Blood Cell Count 3.84 X10^6/uL (4.0-5.2); Red Cell Distribution Width 14.5 % (11.6-14.8); White Blood Cell Count 29.4 X10^3/uL (4.5-11.0)
[2022-05-07 06:58] LABS: Neutrophils Absolute Manual 25284 /uL (3000-5900); Total Cells Counted 100
[2022-05-07 06:59] LABS: RBC Morphology Normal Morphology
[2022-05-07 08:00] VITALS: BP 135/54; PULSE 88; RESP 18; TEMP 37.2; O2SAT 95
--- NOTE | 2022-05-07 08:21 | PC.NURSE ---
Addendum entered by Maurilio Chiang R.N. 05/07/22 18:20: Pt set up with home O2. discharge instructions given to Pt and spouse. Pt readied for home. Dressing over right shoulder redressed. less drainage than previously noted. PICC continues in per Dr. Allison as is needed for infusion therapy. Original Note: A&O appropriate requests and questions.
[2022-05-07] MEDS: MAGNESIUM OXIDE 400 MG TABLET PO (09:23)
[2022-05-07] MEDS: PRAVASTATIN 20 MG TABLET 40 MG PO (09:23)
[2022-05-07] MEDS: CALCIUM CARBONATE 600 MG TABLET PO (09:23)
[2022-05-07] MEDS: CEFDINIR 300 MG CAPSULE PO (09:23)
[2022-05-07] MEDS: MONTELUKAST 10 MG TABLET PO (09:23)
[2022-05-07] MEDS: POTASSIUM CHLORIDE 20 MEQ TAB PO (09:24)
[2022-05-07] MEDS: ENOXAPARIN 60 MG/0.6 ML SYRINGE 50 MG SUBCUT (09:24)
[2022-05-07] MEDS: CHOLECALCIFEROL (VITAMIN D3) 1,000 UNIT TABLET 2000 UNIT PO (09:24)
[2022-05-07] MEDS: DOXYCYCLINE HYCLATE 100 MG TABLET PO (09:24)
[2022-05-07] MEDS: DOCUSATE 100 MG CAPSULE PO (09:24)
[2022-05-07] MEDS: FLUCONAZOLE 100 MG TABLET PO (09:32)
[2022-05-07] MEDS: LIDOCAINE PATCH 1 EACH ADH..PATCH TOP (09:32)
[2022-05-07] MEDS: ASCORBIC ACID 500 MG TABLET 1000 MG PO (09:32)
--- NOTE | 2022-05-07 09:50 | P.DS_ITS ---
History of Present Illness History of Present Illness Date Patient Seen: 05/07/22 Time Patient Seen: 08:50 Chief complaint: fell face down on floor last night Narrative: Pt stable this morning Feeling ok able to eat breakfast and eliminate Plan is to dc home with today for HH then begin immunotherapy infusions on Tuesday O2 eval for home O2 looks like she does need it will provide Discharge Providers Provider Date of admission: 05/03/22 12:06 Discharge Date: 05/07/22 Primary care physician: Mika Tabor MD Consults: 05/03/22 15:09 Consult to Occupational Therapy Evaluate & Treat Comment: Physician Instructions: Evaluate and treat Consult to Physical Therapy Evaluate & Treat Comment: Physician Instructions: Evaluate and Treat 05/04/22 13:20 Consult to Dietitian, Adult Routine Comment: Reason For Exam: malnutrition 05/06/22 08:57 Consult to Hospitalist Service Routine Comment: Consulting Provider: Zeus Stark Reason for consultation: sepsis of unknown source Has provider been notified: Yes Discharge provider: Jonny Allison MD Summary Hospital Course Discharge Diagnosis: #jugular vein thromboses, bilateral, extensive #Infected supraclavicular LN biopsy site with sepsis syndrome including hypoxemia, leukocytosis, tachycardia # 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 #HLD #V-tach, asymptomatic, 10 beats, asymptomatic.? #R Shoulder pain #Severe acute on chronic malnutrition secondary to acute illness with COVID and also episodes of diarrhea as well as new diagnosis of cancer #Acute systolic heart failure with slightly decreased ejection fraction from her previous echo in 2019. #Hypokalemia improved but still present #Anxiety and air hunger Hospital Course: Ms. Patel was admitted and treated with broad spectrum antibiotics which did not make much difference on her wound or her white count. She was also found to have bilateral extensive jugular thromboses as well as some mild hypoxia suspicious for possible pulmonary process. Her vitals remained stable with minimal O2 and she will dc home on antibiotics eliquis and home O2 with plan to begin immunotherapy in 3 days. Status at Discharge Cognitive/behavioral status at discharge: at baseline, oriented Functional status at discharge: uses cane/walker Overall status at discharge: patient is progressing back to baseline Exam Vital Signs (past 8 hours): - 05/07/22 04:39 05/07/22 08:37 Temperature 97.7 F Pulse Rate 62 Respiratory Rate 21 Blood Pressure 128/81 Pulse Oximetry 93 Oxygen Delivery Method Nasal Cannula Oxygen Flow Rate 2 2 Fraction of Inspired Oxygen 28 SaO2/FiO2 Ratio 350 Oxygen Delivery Method Nasal Cannula Oxygen Flow Rate 2 Narrative Exam Narrative: ill looking elder Const Nutritional Appearance: thin HENMT Head: normocephalic (scattered bruises on nose) Eyes General: appearance normal, both eyes and all related structures Cardio Other: regular rate s1/s2 GI Other: soft nontender nondistended Skin Other: grossly swollen L supraclavicular LN under dressing, minimal drainage Neuro General: patient alert, patient awake, patient oriented x3 and moves all extremities Extrem General: full ROM and no pedal edema Psych Speech and Movement: speech and movement normal Objective Labs 05/07/22 04:50 05/07/22 04:50 Labs: Laboratory Results - last 24 hr 05/06/22 05/07/22 05/07/22 22:38 04:50 04:50 WBC 29.4 H RBC 3.84 L Hgb 11.7 L Hct 35.2 L MCV 91.6 MCH 30.5 MCHC 33.3 RDW 14.5 Plt Count 304 Neut % (Auto) Not Reportable Lymph % (Auto) Not Reportable Stark % (Auto) Not Reportable Eos % (Auto) Not Reportable Baso % (Auto) Not Reportable Lymph # (Auto) Not Reportable Stark # (Auto) Not Reportable Baso # (Auto) Not Reportable Total Counted 100 Seg Neutrophils % 80.0 H Band Neutrophils % 6.0 Lymphocytes % (Manual) 5.0 L Monocytes % (Manual) 3.0 Eosinophils % (Manual) 4.0 Basophils % (Manual) 2.0 H Neutrophils # (Manual) 06666 H RBC Morphology Normal morphology Sodium 137 Potassium 3.3 L Chloride 100 Carbon Dioxide 31 BUN 22 H Creatinine 0.53 Estimated GFR > 60 BUN/Creatinine Ratio 41.5 H Glucose 119 H Calcium 8.4 Total Bilirubin 0.4 AST 17 ALT 18 Alkaline Phosphatase 79 Total Protein 5.8 L Albumin 2.9 L Globulin 2.9 Albumin/Globulin Ratio 1.0 Vancomycin Trough Cancelled FOR[facility] Medical History Facet arthropathy, cervical Fractures (~2018) HLD (hyperlipidemia) Measles (~1949) Staph aureus infection (04/09/22) Vertigo (~2013) Vertigo Surgical History Anesthesia History of biopsy (03/24/22) History of hip replacement (~2016) History of hysterectomy (~1966) Family History Father Cancer Brother Melanoma Mother Lung cancer Social History household members: spouse Smoking Status: Former smoker alcohol intake: current substance use type: does not use Discharge Assessment & Plan Assessment and Plan Assessment: #jugular vein thromboses, bilateral, extensive per CT, s/p inpt tx with Lovenox will transition to eliquis 5 bid on dc #Infected supraclavicular LN biopsy site with sepsis syndrome including hypoxe checo, leukocytosis, tachycardia stable.? Patient clinically improving significantly, persistent leukocytosis lkely represents leukemoid reaction, negative blood cultures noted, no other site noted for infectious process. s/p IV vancomycin and Zosyn with persistent leukocytosis. 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 Valencia on Tuesday # Hypoxemia with history of COPD with concern for post obstructive pneumonia.? Stable may need home O2, eval per RT pending, continue montelukast with prn duonebs will discharge with 5 day course of doxycyline and cefdinir #HLD stable continue home statin #V-tach, asymptomatic, 10 beats, asymptomatic.? She is not had a recurrence.? Doing ok. consider cardiolgoy w/u as outpt. #R Shoulder pain Suspect related to swollen lymph node but if it is not improving with treatment will do further workup. #Severe acute on chronic malnutrition secondary to acute illness with COVID and also episodes of diarrhea as well as new diagnosis of cancer Appreciate dietary consult.? Patient was encouraged to use protein supplements etc. #Acute systolic heart failure with slightly decreased ejection fraction from her previous echo in 2019. did well with gentle diuresis, f/u as outpt #Hypokalemia improved but still present s/p lasix and po supplementation, stopping both on dc #Anxiety and air hunger doing ok on prn Valium. dispo:dc home to f/u with onco and PCP as outpt 55 minutes spent with patient today meeting with patient discussing with physician, nursing and formulating a plan and documenting Discharge Plan Discharge Plan Patient Disposition: Home Health Service Provider Discharge Comment: after home O2 eval Discharge orders & Medications Prescriptions: New lidocaine 5 % Adhesive Patch,Medicated 1 patch topical DAILY 15 Days Qty: 15 0RF cefdinir 300 mg Capsule 300 mg PO BID 5 Days Qty: 10 0RF doxycycline hyclate 100 mg Tablet 100 mg PO BID 5 Days Qty: 10 0RF Eliquis 5 mg tablet 5 mg PO BID Qty: 60 0RF Continued All Day Calcium 600 mg PO DAILY pravastatin 40 mg Tablet 40 mg PO DAILY vitamin B complex [B Complex-Vitamin B12] Tablet 1 tab PO DAILY diazepam 5 mg Tablet 5 mg PO BEDTIME PRN (Reason: Sleep) magnesium 200 mg Tablet 400 mg PO DAILY melatonin 5 mg Tablet 5 mg PO BEDTIME PRN (Reason: Sleep) cholecalciferol (vitamin D3) 50 mcg (2,000 unit) Tablet 50 mcg PO DAILY Probiotic with Prebiotic 1 billion-250 cell-mg Capsule 1 cap PO DAILY ascorbic acid (vitamin C) 1,000 mg Capsule 1,000 mg PO DAILY Estroven 1 tab PO DAILY Dulcolax Stool Softener (dss) 1 tab PO TID montelukast 10 mg tablet 10 mg PO DAILY Follow up/Referrals: Mika Tabor MD [Primary Care Provider] - Visit Report/Discharge Packet Stand Alone Forms: Patient Portal/API, Stroke Signs & Symptoms Discharge Data Primary Care Provider: Mika Tabor Quality VTE Deep Vein Thrombosis/Pulmonary Embolism Present on Admission: No
[2022-05-07 09:59] LABS: Magnesium 2.1 mg/dL (1.6-2.3)
[2022-05-07 10:07] LABS: NT-proBNP (BNP-Adult 18+) 7020 pg/mL (<450)
[2022-05-07] MEDS: HYDROCODONE/ACET 5/325 TABLET 1 TAB PO ×2 (11:48→15:49)
[2022-05-07] MEDS: POTASSIUM CHLORIDE 20 MEQ TAB 40 MEQ PO (11:49)
[2022-05-07 12:00] VITALS: BP 102/60; PULSE 89; RESP 22; TEMP 37.2; O2SAT 92
--- NOTE | 2022-05-07 12:20 | CM.DPNOTE ---
DC Note Patient discharged home today. Contacted [facility] to alert them of patient's discharge and they anticipated scheduling patient Tuesday or Tuesday next week. Faxed completed and signed F2F, HH order and medical prog notes from 05.06.22, awaiting DC Summary from Dr Allison Met w/patient and her spouse Darrel, reviewed discharge plan. Patient appears much more fragile than our first meeting on 05.04 Discussed [facility] services and spouse adamant that she not get PT, only RN. Suggested that when [facility] calls to schedule their first appt, spouse make patient's needs known. Spouse agreeable Spouse eager to get patient to her first oncology treatment appointment on TuesdayMay 10. Reminded spouse that rn hedis and social sciences instructor Beata Cee is a resource for patient/family as needed, spouse appreciative Plan: DC home to the care of spouse, w/[facility] services, spouse's auto, home O2 JW
--- NOTE | 2022-05-07 12:47 | OT.IPNOTE ---
Pt states going home today. When asked, pt's states does not have any questions for OT needs.
== END 2022-05-07 17:05 | disposition home or self-care (01) | DRG 862 ==
LOC: ED 12:05 → AC 12:06
PROVIDERS: Family Medicine; Admitting Provider Family Medicine; Emergency Provider Emergency Medicine; Family Provider Family Medicine; PCP Family Medicine; Referring Provider Emergency Medicine; Visit Provider Family Medicine
DX: T81.44XA Sepsis following a procedure, initial encounter (principal); E43 Unspecified severe protein-calorie malnutrition; I50.21 Acute systolic (congestive) heart failure; J18.9 Pneumonia, unspecified organism; I47.20 Ventricular tachycardia, unspecified; Z68.1 Body mass index [BMI] 19.9 or less, adult; L03.221 Cellulitis of neck; I82.C13 Acute embolism and thrombosis of internal jugular vein, bilateral; C34.92 Malignant neoplasm of unspecified part of left bronchus or lung; J44.9 Chronic obstructive pulmonary disease, unspecified; E78.5 Hyperlipidemia, unspecified; E87.6 Hypokalemia; R09.02 Hypoxemia; F41.9 Anxiety disorder, unspecified; Z87.891 Personal history of nicotine dependence; Z20.822 Contact with and (suspected) exposure to COVID-19
CPT/HCPCS: 36415; 36592; 70450; 70491; 71045; 76536; 80053; 80202; 82550; 83605; 83690; 83735; 83880; 84145; 84439; 84443; 84484; 85007; 85025; 85610; 85730; 87040; 87635; 93005; 93306; 93970; 94618; 94640; 94760; 94762; 97116; 97163; 97166; 97535; 99284; C9803; J1170; J1642; J1650; J1940; J2543; Q9967

== ENCOUNTER 2022-05-28 15:46 | Inpatient (IN) | payer MEDICARE, BC, SELFPAY ==
[2022-05-03 12:09] VITALS: BMI 17.2
[2022-05-28] VITALS (21 sets, daily range): BP systolic 107–174; BP diastolic 62–85; PULSE 71–89; RESP 20–41; TEMP 36.6; O2SAT 84–98; BMI 18.1
--- NOTE | 2022-05-28 16:03 | DI.CT.S_ITS ---
PROCEDURE: CT ANGIO HEAD AND NECK with contrast, CT head without contrast INDICATIONS: pupil changes TECHNIQUE: Pre-contrast 4.5 mm thick sections acquired from the foramen magnum to the vertex. After the administration of intravenous contrast, 1 mm thick sections acquired from the aortic arch through the [place] of [place]. Post-contrast 4.5 mm thick sections then re-acquired from the foramen magnum to the vertex. MIP reformats of the arterial vasculature were utilized. Auto text CT For radiation dose reduction, the following was used: automated exposure control, adjustment of mA and/or kV according to patient size. To prior [facility], CT, CT SOFT TISSUE NECK W CON, 05/06/2022, 12:59. T neckCOMPARISON: FINDINGS: Noncontrast CT Brain: Cerebrum, cerebellum and brainstem: Moderate atrophy and white matter chronic ischemic change. Mild senescent calcification noted in both basal ganglia. No evidence of intracranial hemorrhage, mass effect or extra-axial fluid collections. Burgess-white distinction is well preserved throughout the exam. Ventricles: Appropriate size and position. No evidence of hydrocephalus. Skull base: The bony sella, pituitary gland and infundibulum are unremarkable. Posterior fossa and cerebellum are unremarkable. Visualized portions of the external auditory canals and tympanic cavity are within normal limits. Bilateral intraocular lens replacements noted. Calvarium and Scalp: No scalp soft tissue swelling. The underlying calvarium is intact without skull fracture or lytic lesion. Paranasal Sinuses: Unremarkable as visualized. No acute sinusitis. Mastoids: Unremarkable as visualized. No mastoid effusion. Cerebral CT Angiogram: Internal carotid arteries: No acute findings. Intracranial ICA are patent with no significant stenosis. No occlusion. No aneurysm. Anterior cerebral arteries: Unremarkable. No significant stenosis. No occlusion. No aneurysm. Middle cerebral arteries: Unremarkable. No significant stenosis. No occlusion. No aneurysm. Posterior cerebral arteries: Unremarkable. No significant stenosis. No occlusion. No aneurysm. Basilar artery: Unremarkable. No significant stenosis. No occlusion. No aneurysm. Vertebral arteries: Unremarkable. No significant stenosis. No dissection or occlusion. Dural venous sinuses: Unremarkable given phase of enhancement. Other: Arterial phase brain parenchyma unremarkable. Neck CT Angiogram: Internal carotid arteries: Unremarkable. No significant stenosis. No dissection or occlusion. Common carotid arteries: Mediastinal mass lesion displaces the proximal common carotid artery results in mild stenosis of the brachiocephalic artery, similar to the prior External carotid arteries: Unremarkable. No occlusion. Vertebral arteries: Unremarkable. No significant stenosis. No dissection or occlusion. Aortic arch and mediastinum: Unremarkable. Additionally, advanced multilevel degenerative disc disease and arthropathy in the cervical spine results in indentation of the ventral surface of the cord and moderate central stenosis C4-5, C5-6 and C6-7. No lytic or blastic lesion. Massive right-sided supraclavicular and mediastinal mass lesion displaces the right subclavian and common carotid arteries, also surrounds the brachiocephalic artery with mild stenosis. Probable inferior jugular vein thrombosis present bilaterally, although not well evaluated by given phase of enhancement. Left-sided peripherally inserted central line partially imaged. Small bilateral pleural effusions, partially imaged IMPRESSION: 1. Unremarkable intracranial CT angiogram without large vessel occlusion, aneurysm or vascular malformation. 2. Massive mediastinal and right supraclavicular mass lesion surrounds the proximal brachiocephalic artery, and displaces the common and supraclavicular arteries on the right. 3. Advanced multilevel degenerative disc disease and arthropathy without least moderate central stenosis in the mid cervical spine 4. Moderate intracranial atrophy and multifocal white matter chronic ischemic change without intracranial hemorrhage or mass effect. Note: Any reported proximal ICA stenosis was calculated using NASCET guidelines. Approved by: Nicolás Yan M.D. on 05/28/2022 at 16:22
--- NOTE | 2022-05-28 16:05 | DI.RAD.S_ITS ---
PROCEDURE: XR CHEST 1V INDICATIONS: Possible stroke TECHNIQUE: One view of the chest was acquired. COMPARISON: [facility], CT, CT SOFT TISSUE NECK W CON, 05/06/2022, 12:59. [facility], CR, XR CHEST 1V, 05/03/2022, 9:54. FINDINGS: Surgical changes and devices: [place] type left arm PICC line extends to the left brachiocephalic vein.. Lungs and pleura: Question asymmetric pulmonary edema, left greater than right. Small right pleural effusion. Mediastinum: Bulky right paratracheal adenopathy measuring approximately 6.1 x 4.9 cm. Heart size is normal. Bones and chest wall: No suspicious bony lesions. Overlying soft tissues appear unremarkable. IMPRESSION: 1. Malignant adenopathy. 2. Question asymmetric pulmonary edema. 3. Small right pleural effusion. Dictated by: Yoav Marin M.D. on 05/28/2022 at 16:45 Approved by: Yoav Marin M.D. on 05/28/2022 at 16:47
--- NOTE | 2022-05-28 16:24 | ED_ITS ---
HPI - Neuro Symptoms/Deficit General Chief Complaint: Neuro Symptoms/Deficit Stated Complaint: Poss stroke Time Seen by Provider: 05/28/22 16:09 Source: patient and family Mode of arrival: Wheelchair History of Present Illness HPI Narrative: Patient brought here by for complaints of unequal pupils. states the left pupil appears to be larger than the right. 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 Does have extension into the head and neck. There is a mass on the right side of the neck. Patient has had ultrasound and soft tissue neck CT scan of this. Did have biopsy as well. Patient was admitted May 03 for infection of the biopsy site. Patient does see Dr. Tabor for primary care. She is with Dr. Valencia for Oncology. Started immunosuppression therapy last week. First dose. Receives this every 3 weeks. Has been doing well since then. 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 This was discovered on previous imaging. Denies a headache. No slurred speech or facial droop. No eye drooping. No anhidrosis of either side of the face. Denies any vision changes at this time. No headache. Fast exam is negative. noticed pupillary difference yesterday morning. Over 24 hours ago. Denies any chest pain or dyspnea. On Anticoagulants: Yes (Eliquis) Related Data Home Medications Medication Instructions Recorded Confirmed ascorbic acid (vitamin C) 1,000 mg 1,000 mg PO DAILY 04/26/22 05/30/22 capsule bacillus coagulans-inulin 1 1 cap PO DAILY 04/26/22 05/30/22 billion cell-250 mg capsule (Probiotic with Prebiotic) cholecalciferol (vitamin D3) 50 50 mcg PO DAILY 04/26/22 05/30/22 mcg (2,000 unit) tablet diazepam 5 mg tablet 5 mg PO BEDTIME PRN Sleep 04/26/22 05/30/22 magnesium 200 mg tablet 400 mg PO DAILY 04/26/22 05/30/22 melatonin 5 mg tablet 5 mg PO BEDTIME PRN Sleep 04/26/22 05/30/22 pravastatin 40 mg tablet 40 mg PO DAILY 04/26/22 05/30/22 vitamin B complex (B 1 tab PO DAILY 04/26/22 05/30/22 Complex-Vitamin B12 tablet) montelukast 10 mg tablet 10 mg PO DAILY 05/03/22 05/30/22 fentanyl 12 mcg/hr transdermal 1 patch topical Q3D 05/28/22 05/28/22 patch quetiapine 25 mg tablet (Seroquel) 25 mg PO BEDTIME 05/28/22 05/28/22 sertraline 25 mg tablet 25 mg PO BEDTIME 05/28/22 05/28/22 Previous Rx's Medication Instructions Recorded apixaban 2.5 mg tablet (Eliquis) 2.5 mg PO BID upper extremity DVT 05/10/22 #60 tabs metoprolol succinate 25 mg 25 mg PO DAILY #30 tabs 05/30/22 tablet,extended release 24 hr Allergies Allergy/AdvReac Type Severity Reaction Status Date / Time adhesive tape [ADHESIVE TAPE] Allergy Intermediate PLASTIC Verified 05/28/22 16:03 TAPE-RASH latex [LATEX] Allergy Intermediate RASH Verified 05/28/22 16:03 Review of Systems Review of Systems Narrative: GENERAL: negative chills, fatigue, malaise, fever, sweats. HEENT: negative sinus pain, ear pain, sore throat, positive anisocoria RESPIRATORY: negative dyspnea, cough CARDIOVASCULAR: negative chest pain, palpitations GASTROINTESTINAL: negative nausea, vomiting, abdominal pain : negative dysuria, frequency, hematuria MUSCULOSKELETAL: negative muscle or bony pain SKIN: negative rash, skin lesions NEUROLOGIC: negative weakness, numbness, negative slurred speech negative headache negative numbness tingling or weakness negative altered mental status ROS Unobtainable: All systems reviewed & are unremarkable except as noted in HPI and below Hematologic/Lymphatic On Anticoagulants: Yes (Eliquis) Patient History Medical History Facet arthropathy, cervical Fractures (~2017) HLD (hyperlipidemia) Measles (~194) Staph aureus infection (04/09/22) Vertigo (~2013) Vertigo Surgical History Anesthesia History of biopsy (03/24/22) History of hip replacement (~2016) History of hysterectomy (~1966) Family History Father Cancer Brother Melanoma Mother Lung cancer Social History household members: spouse Smoking Status: Former smoker alcohol intake: current substance use type: does not use Smoking Status: Former smoker alcohol intake frequency: holidays/special occasions only Substance Use Type: does not use Exam Narrative Exam Narrative: GENERAL: in no distress, not toxic not dyspneic HEAD: Normocephalic. EYES: Right pupil slightly smaller than the left. Right pupil is 2 mm. Left pupil is 4 mm. Both are reactive to light directly and indirectly. EOMI. ENT: Mucous membranes moist. NECK: Trachea midline. CARDIOVASCULAR: Regular rate and rhythm without murmurs RESPIRATORY: Clear to auscultation. Breath sounds equal bilaterally. No wheezes, rales, or rhonchi. GASTROINTESTINAL: Abdomen soft, non-tender EXTREMITIES: No gross deformities. BACK: No flank tenderness. NEURO: AOx4. Fast exam is negative. Clear speech no facial droop light touch intact to bilateral face and hands with strong equal cast iron dipper. Negative pronator drift. SKIN: Warm and dry PSYCH: Not anxious, is cooperative Initial Vital Signs Initial Vital Signs: Vital Signs Temperature 97.8 F 05/28/22 16:00 Pulse Rate 74 05/28/22 16:00 Respiratory Rate 30 H 05/28/22 16:00 Blood Pressure 133/62 05/28/22 16:00 Pulse Oximetry 94 05/28/22 16:00 Oxygen Delivery Method 05/28/22 16:00 Oxygen Flow Rate 2 05/28/22 16:00 Scores NIH Stroke Scale Level of Conciousness: Alert, keenly responsive Ask month/age: Answers both questions correctly. Open/close eyes, close hand: Performs both tasks correctly Best gaze horizontal: Normal Visual reyes: No visual loss Facial palsy: Normal symetrical movement Left arm drift: No drift for full 10 sec Right arm drift: No drift for full 10 sec Left leg drift: No drift for full 5 sec Right leg drift: No drift for full 5 sec Limb ataxia: Absent Sensory on face/arms/legs: Normal, no sensory loss Best language: No aphasia, normal Dysarthria: Normal Extinction or inattention: No abnormality Total NIH Stroke scale score: 0 Course Orders Ordered: Discontinued Medications Acetaminophen (Acetaminophen 325 Mg Tablet) 650 mg PO Q6H PRN PRN Reason: Fever/Mild Pain (1-3) Last Admin: 05/30/22 09:57 Dose: 650 mg Documented By: RLH Apixaban (Apixaban 5 Mg Tablet) 2.5 mg PO BID [facility] Last Admin: 05/28/22 22:03 Dose: 2.5 mg Documented By: SATYA Apixaban (Apixaban 5 Mg Tablet) 2.5 mg PO BID [facility] Last Admin: 05/30/22 09:45 Dose: 2.5 mg Documented By: Admin: 05/29/22 20:32 Dose: 2.5 mg Documented By: Admin: 05/29/22 09:02 Dose: 2.5 mg Documented By: Admin: 05/28/22 22:56 Dose: Not Given Documented By: SHWETA Diazepam (Diazepam 5 Mg Tablet) 5 mg PO BEDTIME PRN PRN Reason: Sleep Last Admin: 05/30/22 00:33 Dose: 5 mg Documented By: Admin: 05/28/22 23:04 Dose: 5 mg Documented By: SHWETA Sodium Chloride (Normal Saline 0.9%) 500 mls @ 1,000 mls/hr IV BOLUS ONE Stop: 05/28/22 18:01 Last Infusion: 05/28/22 18:30 Dose: 0 mls/hr Documented By: Admin: 05/28/22 17:52 Dose: 1,000 mls/hr Documented By: VICENTE Lactated Ringer's (Lactated Ringers) 1,000 mls @ 21 mls/hr IV CONT [facility] Last Admin: 05/28/22 19:19 Dose: 21 mls/hr Documented By: VICENTE Metoprolol Succinate (Metoprolol Er 25 Mg Tablet) 25 mg PO NOW ONE Stop: 05/28/22 21:50 Last Admin: 05/28/22 22:58 Dose: 25 mg Documented By: SHWETA Morphine Sulfate (Morphine 2 Mg/Ml Inj) 2 mg IV Q5MIN PRN PRN Reason: Chest Pain Last Admin: 05/29/22 19:14 Dose: 2 mg Documented By: Admin: 05/29/22 13:39 Dose: 2 mg Documented By: Admin: 05/29/22 12:00 Dose: 2 mg Documented By: VICENTE Naloxone HCl (Naloxone 0.4 Mg/Ml Vial) 0.2 mg IV Q2MIN PRN PRN Reason: Opiate Reversal Nitroglycerin (Nitroglycerin 0.4 Mg Sl Tab) 0.4 mg SL [id number] PRN PRN Reason: Chest Pain Oxycodone HCl (Oxycodone Ir 5 Mg Tablet) 5 mg PO Q3H PRN PRN Reason: Pain, Moderate (4-6) Oxycodone HCl (Oxycodone Ir 10 Mg Tablet) 10 mg PO Q3H PRN PRN Reason: Pain, Severe (7-10) Oxycodone HCl (Oxycodone Ir 5 Mg Tablet) 10 mg PO Q3H PRN PRN Reason: Pain, Severe (7-10) Pravastatin Sodium (Pravastatin 20 Mg Tablet) 40 mg PO DAILY [facility] Last Admin: 05/30/22 09:46 Dose: 40 mg Documented By: RLAleks Admin: 05/29/22 09:03 Dose: 40 mg Documented By: VICENTE Sennosides (Sennosides 8.6 Mg Tablet) 17.2 mg PO BEDTIME [facility] Last Admin: 05/29/22 20:32 Dose: 17.2 mg Documented By: Admin: 05/28/22 23:09 Dose: 17.2 mg Documented By: SATYA Vital Signs Vital signs: Vital Signs - 8 hr 05/28/22 16:00 Temperature 97.8 F Pulse Rate 74 Respiratory Rate 30 H Blood Pressure 133/62 Pulse Oximetry 94 Oxygen Delivery Method Nasal Cannula Oxygen Flow Rate 2 MDM - Neuro Symptoms/Deficit Lab Data 05/28/22 16:20 05/28/22 16:20 Labs: Lab Results 05/28/22 05/28/22 05/28/22 Range/Units 16:10 16:20 16:20 WBC 23.0 H (4.5-11.0) X10^3/uL RBC 3.54 L (4.0-5.2) X10^6/uL Hgb 11.0 L (12.0-16.0) g/dL Hct 33.4 L (36-46) % MCV 94.3 (80-100) fL MCH 31.2 (26-34) PG MCHC 33.1 (30-36) % RDW 17.4 H (11.6-14.8) % Plt Count 222 (150-400) X10^3/uL Neut % (Auto) 84.2 H (50-75) % Lymph % (Auto) 5.4 L (25-40) % [place] % (Auto) 5.0 (3-14) % Eos % (Auto) 4.9 H (2-4) % Baso % (Auto) 0.5 (0-2) % Neut # (Auto) 77580 H (1364-2798) /uL Lymph # (Auto) 1200 (3901-6273) /uL [place] # (Auto) 1200 H (0-900) /uL Eos # (Auto) 1100 H (0-450) /uL Baso # (Auto) 100 (0-100) /uL Total Counted Seg Neutrophils % (38-70) % Band Neutrophils % (3-7) % Lymphocytes % (Manual) (25-45) % Monocytes % (Manual) (2-11) % Eosinophils % (Manual) (2-4) % Neutrophils # (Manual) (6748-5243) /uL RBC Morphology Anisocytosis Ovalocytes PT 15.5 H (10.1-12.7) SECONDS INR 1.3 (0.9-1.3) APTT 25 L (26-36) SECONDS Sodium (137-145) mmol/L Potassium (3.4-5.1) mmol/L Chloride (98-107) mmol/L Carbon Dioxide (22-32) mmol/L BUN (7-17) mg/dL Creatinine (0.52-1.04) mg/dL Estimated GFR (>60) mL/min BUN/Creatinine Ratio (6-22) Glucose (80-110) mg/dL Calcium (8.4-10.2) mg/dL Magnesium (1.6-2.3) mg/dL Total Bilirubin (0.2-1.3) mg/dL AST (14-36) IU/L ALT (<35) IU/L Alkaline Phosphatase (38-126) U/L Total Creatine Kinase (30-135) U/L CK-MB (CK-2) CK-MB (CK-2) Rel Index Troponin I (0.01-0.034) ng/mL Total Protein (6.3-8.2) g/dL Albumin (3.5-5.0) g/dL Globulin (1.7-4.1) g/dL Albumin/Globulin Ratio (1.0-2.8) SARS-CoV-2 (PCR) Negative (Negative) 05/28/22 05/29/22 05/29/22 Range/Units 16:20 05:05 05:05 WBC 25.1 H (4.5-11.0) X10^3/uL RBC 3.65 L (4.0-5.2) X10^6/uL Hgb 11.4 L (12.0-16.0) g/dL Hct 34.6 L (36-46) % MCV 94.8 (80-100) fL MCH 31.2 (26-34) PG MCHC 32.9 (30-36) % RDW 17.9 H (11.6-14.8) % Plt Count 212 (150-400) X10^3/uL Neut % (Auto) Not Reportable (50-75) % Lymph % (Auto) Not Reportable (25-40) % [place] % (Auto) Not Reportable (3-14) % Eos % (Auto) Not Reportable (2-4) % Baso % (Auto) Not Reportable (0-2) % Neut # (Auto) (6475-5391) /uL Lymph # (Auto) Not Reportable (1328-5992) /uL [place] # (Auto) Not Reportable (0-900) /uL Eos # (Auto) (0-450) /uL Baso # (Auto) Not Reportable (0-100) /uL Total Counted 100 Seg Neutrophils % 78.0 H (38-70) % Band Neutrophils % 9.0 H (3-7) % Lymphocytes % (Manual) 4.0 L (25-45) % Monocytes % (Manual) 6.0 (2-11) % Eosinophils % (Manual) 3.0 (2-4) % Neutrophils # (Manual) 33350 H (4101-7006) /uL RBC Morphology See below Anisocytosis 2+ H Ovalocytes 1+ H PT (10.1-12.7) SECONDS INR (0.9-1.3) APTT (26-36) SECONDS Sodium 140 139 (137-145) mmol/L Potassium 4.0 3.7 (3.4-5.1) mmol/L Chloride 100 102 (98-107) mmol/L Carbon Dioxide 36 H 34 H (22-32) mmol/L BUN 33 H 28 H (7-17) mg/dL Creatinine 0.73 0.66 (0.52-1.04) mg/dL Estimated GFR > 60 > 60 (>60) mL/min BUN/Creatinine Ratio 45.2 H 42.4 H (6-22) Glucose 106 121 H (80-110) mg/dL Calcium 9.1 8.9 (8.4-10.2) mg/dL Magnesium 2.5 H (1.6-2.3) mg/dL Total Bilirubin 0.5 0.5 (0.2-1.3) mg/dL AST 20 18 (14-36) IU/L ALT 25 25 (<35) IU/L Alkaline Phosphatase 70 70 (38-126) U/L Total Creatine Kinase 30 (30-135) U/L CK-MB (CK-2) TNP CK-MB (CK-2) Rel Index TNP Troponin I 0.134 H* (0.01-0.034) ng/mL Total Protein 5.5 L 5.4 L (6.3-8.2) g/dL Albumin 2.8 L 2.8 L (3.5-5.0) g/dL Globulin 2.7 2.6 (1.7-4.1) g/dL Albumin/Globulin Ratio 1.0 1.1 (1.0-2.8) SARS-CoV-2 (PCR) (Negative) 05/29/22 05/29/22 Range/Units 05:05 12:05 WBC (4.5-11.0) X10^3/uL RBC (4.0-5.2) X10^6/uL Hgb (12.0-16.0) g/dL Hct (36-46) % MCV (80-100) fL MCH (26-34) PG MCHC (30-36) % RDW (11.6-14.8) % Plt Count (150-400) X10^3/uL Neut % (Auto) (50-75) % Lymph % (Auto) (25-40) % [place] % (Auto) (3-14) % Eos % (Auto) (2-4) % Baso % (Auto) (0-2) % Neut # (Auto) (3590-4858) /uL Lymph # (Auto) (1121-6800) /uL [place] # (Auto) (0-900) /uL Eos # (Auto) (0-450) /uL Baso # (Auto) (0-100) /uL Total Counted Seg Neutrophils % (38-70) % Band Neutrophils % (3-7) % Lymphocytes % (Manual) (25-45) % Monocytes % (Manual) (2-11) % Eosinophils % (Manual) (2-4) % Neutrophils # (Manual) (0309-5847) /uL RBC Morphology Anisocytosis Ovalocytes PT (10.1-12.7) SECONDS INR (0.9-1.3) APTT (26-36) SECONDS Sodium (137-145) mmol/L Potassium (3.4-5.1) mmol/L Chloride (98-107) mmol/L Carbon Dioxide (22-32) mmol/L BUN (7-17) mg/dL Creatinine (0.52-1.04) mg/dL Estimated GFR (>60) mL/min BUN/Creatinine Ratio (6-22) Glucose (80-110) mg/dL Calcium (8.4-10.2) mg/dL Magnesium (1.6-2.3) mg/dL Total Bilirubin (0.2-1.3) mg/dL AST (14-36) IU/L ALT (<35) IU/L Alkaline Phosphatase (38-126) U/L Total Creatine Kinase 32 29 L (30-135) U/L CK-MB (CK-2) TNP TNP CK-MB (CK-2) Rel Index TNP TNP Troponin I 0.163 H* 0.139 H* (0.01-0.034) ng/mL Total Protein (6.3-8.2) g/dL Albumin (3.5-5.0) g/dL Globulin (1.7-4.1) g/dL Albumin/Globulin Ratio (1.0-2.8) SARS-CoV-2 (PCR) (Negative) Imaging Data Chest x-ray: Radiologist's Impression: [address] [id number] ReportSigned Patient: Erika Patel MMR#: [id number]: 2Acct:[id number]/Sex: 81 / FDate of Service: 05/28/22Loc: EDAccession Number: [id number] Procedure: XR chest 1V Ordering Provider: Robert Cho MD PROCEDURE: XR CHEST 1V INDICATIONS: Possible stroke TECHNIQUE: One view of the chest was acquired. COMPARISON: [facility], CT, CT SOFT TISSUE NECK W CON, 05/06/2022, 12:59. [facility], CR, XR CHEST 1V, 05/03/2022, 9:54. FINDINGS: Surgical changes and devices: [place]ong type left arm PICC line extends to the left brachiocephalic vein.. Lungs and pleura: Question asymmetric pulmonary edema, left greater than right. Small right pleural effusion. Mediastinum: Bulky right paratracheal adenopathy measuring approximately 6.1 x 4.9 cm. Heart size is normal. Bones and chest wall: No suspicious bony lesions. Overlying soft tissues appear unremarkable. IMPRESSION: 1. Malignant adenopathy. 2. Question asymmetric pulmonary edema. 3. Small right pleural effusion. Dictated by: Yoav Marin M.D. on 05/28/2022 at 16:45 Approved by: Yoav Marin M.D. on 05/28/2022 at 16:47 CTA - brain/neck: Radiologist's Impression: [place] [address] CT Scan Report Signed Patient: Erika Patel MR#: [id number] : 1940 Acct:[id number] Age/Sex: 81 / F Date of Service: 05/28/22 Loc: ED Accession Number: [id number] ?? Procedure: CT angio head and neck Ordering Provider: Robert Cho MD PROCEDURE:? CT ANGIO HEAD AND NECK with contrast, CT head without contrast ? INDICATIONS:? pupil changes ? TECHNIQUE:? Pre-contrast 4.5 mm thick sections acquired from the foramen magnum to the vertex.? After the administration of intravenous contrast, 1 mm thick sections acquired from the aortic arch through the [place] of [place].? Post-contrast 4.5 mm thick sections then re- acquired from the foramen magnum to the vertex.? MIP reformats of the arterial vasculature were utilized.? Auto text CT? For radiation dose reduction, the following was used:? automated exposure control, adjustment of mA and/or kV according to patient size.? ? To prior [facility], CT, CT SOFT TISSUE NECK W CON, 05/06/2022, 12:59.? T neckCOMPARISON:? ? FINDINGS: ? Noncontrast CT Brain: ? Cerebrum, cerebellum and brainstem:? Moderate atrophy and white matter chronic ischemic change.? Mild senescent calcification noted in both basal ganglia.? No evidence of intracranial hemorrhage, mass effect or extra-axial fluid collections. Burg[place]- white distinction is well preserved throughout the exam. ? Ventricles:? Appropriate size and position.? No evidence of hydrocephalus. ? Skull base:? The bony sella, pituitary gland and infundibulum are unremarkable.? Posterior fossa and cerebellum are unremarkable. Visualized portions of the external auditory canals and tympanic cavity are within normal limits.? Bilateral intraocular lens replacements noted. ? Calvarium and Scalp:? No scalp soft tissue swelling.? The underlying calvarium is intact without skull fracture or lytic lesion. ? Paranasal Sinuses:? Unremarkable as visualized.? No acute sinusitis. Mastoids:? Unremarkable as visualized.? No mastoid effusion. ? Cerebral CT Angiogram: ? Internal carotid arteries:? No acute findings.? Intracranial ICA are patent with no significant stenosis.? No occlusion.? No aneurysm. ? Anterior cerebral arteries:? Unremarkable.? No significant stenosis.? No occlusion.? No aneurysm. ? Middle cerebral arteries:? Unremarkable.? No significant stenosis.? No occlusion.? No aneurysm. ? Posterior cerebral arteries:? Unremarkable.? No significant stenosis.? No occlusion.? No aneurysm. ? Basilar artery:? Unremarkable.? No significant stenosis.? No occlusion.? No aneurysm. ? Vertebral arteries:? Unremarkable.? No significant stenosis.? No dissection or occlusion. ? Dural venous sinuses:? Unremarkable given phase of enhancement. Other: Arterial phase brain parenchyma unremarkable. ? Neck CT Angiogram: ? Internal carotid arteries:? Unremarkable.? No significant stenosis.? No dissection or occlusion. ? Common carotid arteries:? Mediastinal mass lesion displaces the proximal common carotid artery results in mild stenosis of the brachiocephalic artery, similar to the prior ? External carotid arteries:? Unremarkable.? No occlusion. ? Vertebral arteries:? Unremarkable.? No significant stenosis.? No dissection or occlusion. ? Aortic arch and mediastinum: Unremarkable. ? Additionally, advanced multilevel degenerative disc disease and arthropathy in the cervical spine results in indentation of the ventral surface of the cord and moderate central stenosis C4-5, C5-6 and C6-7.? No lytic or blastic lesion.? ? Massive right-sided supraclavicular and mediastinal mass lesion displaces the right subclavian and common carotid arteries, also surrounds the brachiocephalic artery with mild stenosis.? 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 Left-sided peripherally inserted central line partially imaged.? Small bilateral pleural effusions, partially imaged ? ? IMPRESSION: ? 1. Unremarkable intracranial CT angiogram without large vessel occlusion, aneurysm or vascular malformation. ? 2. Massive mediastinal and right supraclavicular mass lesion surrounds the proximal brachiocephalic artery, and displaces the common and supraclavicular arteries on the right. ? 3. Advanced multilevel degenerative disc disease and arthropathy without least moderate central stenosis in the mid cervical spine ? 4. Moderate intracranial atrophy and multifocal white matter chronic ischemic change without intracranial hemorrhage or mass effect.? ? ? Note: Any reported proximal ICA stenosis was calculated using NASCET guidelines.? Approved by: Nicolás Yan M.D. on 05/28/2022 at 16:22? [facility] Narrative Medical decision making narrative: Patient brought here by for complaints of unequal pupils. sta mag the left pupil appears to be larger than the right. 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 Does have extension into the head and neck. There is a mass on the right side of the neck. Patient has had ultrasound and soft tissue neck CT scan of this. Did have biopsy as well. Patient was admitted May 03 for infection of the biopsy site. Patient does see Dr. Tabor for primary care. She is with Dr. Valencia for Oncology. Started immunosuppression therapy last week. First dose. Receives this every 3 weeks. Has been doing well since then. 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 This was discovered on previous imaging. Denies a headache. No slurred speech or facial droop. No eye drooping. No anhidrosis of either side of the face. Denies any vision changes at this time. No headache. Fast exam is negative. noticed pupillary difference yesterday morning. Over 24 hours ago. Denies any chest pain or dyspnea After history and exam CBC CMP troponin EKG CT angiogram head neck have been ordered. Stroke scale is negative. MDM CC: Anisocoria Complicating co-morbidities: History left lung cancer with right neck mass, on immunosuppression/IV every 3 weeks Data collected from: Patient and Medical records reviewed: Records from this past month for visits here but not for this complaint, neck ultrasound and CT scan imaging Differential considered: Includes but not limited to metastatic cancer/Nany syndrome/stroke Exam documented above, pertinent findings include: Anisocoria Lab Test results independently reviewed as above. Pertinent findings: White cell count 23 which is chronic. Hemoglobin 11 hematocrit 33 platelets 222, BUN 33 creatinine 0.73 GFR greater than 60 troponin 0.134 Independently reviewed EKG as above sinus rhythm. Artifact noted. Rate [address] elevation or depression Imaging studies independently reviewed: Chest x-ray impression malignant adenopathy. Small right pleural effusion. Asymmetric pulmonary edema. CT angio head and neck no large vessel occlusion, probable inferior jugular vein thrombosis present bilaterally. Consultations: 5:10 p.[address].. Spoke with cardiology dr valdez, troponin is nonspecific. Recommends repeating but do not start heparin drip or non-STEMI protocol. EKG does not show any ST elevation. Patient has no chest pain or cardiopulmonary complaints. 5:[address] Jha. On-call for Dr Tabor, will admit patient and do serial troponin and echocardiogram in the morning. CT angiogram head neck or pending results. Treatments: Patient on Eliquis. No aspirin at this time. IV fluids given. Re-evaluations: Again, no chest pain. Reviewed results with patient and . Agree for admit. At this time no definitive source for anisocoria. CT angiogram head neck are reassuring. They do agree for admit and will need echocardiogram for troponin levels. Discussion: Appropriate for admission. Will need echocardiogram repeat serial enzymes. And possible MRI of the brain. Diagnosis: Elevated troponin/anisocoria Discharge Plan Departure Patient Disposition: Admitted as Observation Clinical Impression: Elevated troponin Admit Date/Time: 05/29/22 13:20 Admit Provider: Jose Jha
[2022-05-28 16:30] LABS: Add Manual Diff / Slide Review NO; Basophils Absolute Auto 100 /uL (0-100); Basophils Percent Auto 0.5 % (0-2); Eosinophils Absolute Auto 1100 /uL (0-450); Eosinophils Percent Auto 4.9 % (2-4); Hematocrit 33.4 % (36-46); Lymphocytes Absolute Auto 1200 /uL (1100-4500); Lymphocytes Percent Auto 5.4 % (25-40); Mean Corpuscular HGB Conc 33.1 % (30-36); Mean Corpuscular Hemoglobin 31.2 PG (26-34); Mean Corpuscular Volume 94.3 fL (80-100); Monocytes Absolute Auto 1200 /uL (0-900); Neutrophils Absolute Auto 19300 /uL (1500-7000); Neutrophils Percent Auto 84.2 % (50-75); Platelet Count 222 X10^3/uL (150-400); Red Blood Cell Count 3.54 X10^6/uL (4.0-5.2); Red Cell Distribution Width 17.4 % (11.6-14.8)
[2022-05-28 16:37] LABS: INR 1.3 (0.9-1.3); Prothrombin Time 15.5 SECONDS (10.1-12.7)
[2022-05-28 16:40] LABS: PTT Partial Thromboplastin Tim 25 SECONDS (26-36)
[2022-05-28 16:44] LABS: Alanine Aminotransferase 25 IU/L (<35); Albumin 2.8 g/dL (3.5-5.0); Alkaline Phosphatase 70 U/L (38-126); Aspartate Aminotransferase 20 IU/L (14-36); BUN Creatinine Ratio 45.2 (6-22); Bilirubin Total 0.5 mg/dL (0.2-1.3); Blood Urea Nitrogen 33 mg/dL (7-17); Calcium 9.1 mg/dL (8.4-10.2); Carbon Dioxide 36 mmol/L (22-32); Chloride 100 mmol/L (98-107); Creatine Kinase 30 U/L (30-135); Estimated Glomerular Filt Rate > 60 mL/min (>60); Globulin 2.7 g/dL (1.7-4.1); Glucose 106 mg/dL (80-110); HEMOLYSIS < 15 (0-50); Magnesium 2.5 mg/dL (1.6-2.3); Sodium 140 mmol/L (137-145); Total Protein 5.5 g/dL (6.3-8.2)
[2022-05-28 16:55] LABS: COVID19 -Nasal RAPID Negative (Negative)
[2022-05-28 17:25] LABS: Troponin I 0.134 ng/mL (0.01-0.034)
[2022-05-28] MEDS: SODIUM CHLORIDE 0.9% 500 ML 1000 ML IV (17:52)
--- NOTE | 2022-05-28 18:48 | P.HP_ITS ---
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 Patient also with a history of recent sub clavicular infection after lymph node biopsy extensive bilateral jugular venous thrombosis COPD concern for postobstructive pneumonia with hypoxia hypertension severe on chronic protein malnutrition acute systolic heart failure anxiety admitted to the hospital because her and her noticed some increasing blurry vision in change in pupil size. She says otherwise she is been doing okay considering. She says she started her immunotherapy and feels weak run down nauseated. She is on an every 3 week cycle just started she is not feels like it is doing much at this point. Patient has no complaints of chest pain she is mildly short of breath. She has a bandage on her neck she is a good historian her sitting at the bedside. Other than a blurry vision and change in pupil she has generalized weakness but no numbness and tingling in her hands and feet no loss of balance. She has no difficulty with speech or difficulty with word finding. On her workup and evaluation in the emergency department patient had elevation of her white blood cell count with chronic normal electrolytes normal kidney function her testing also revealed a chest x-ray head and neck CTA peripheral vascular ultrasound soft tissue neck CT head and neck ultrasound and echocardio gram ultrasound which have all been done in the last month. These were reviewed. In the emergency room cardiac enzymes were done which showed moderate elevation of cardiac enzyme as mentioned patient denies any chest pain or consistent shortness of breath. EKG revealed mild ST to T-wave changes which is no different than previous EKGs. Patient History Medical History Facet arthropathy, cervical Fractures (~2017) HLD (hyperlipidemia) Measles (~1949) Staph aureus infection (04/09/22) Vertigo (~2013) Vertigo Surgical History Anesthesia History of biopsy (03/24/22) History of hip replacement (~2016) History of hysterectomy (~1966) Family & Social History Family History Father Cancer Brother Melanoma Mother Lung cancer Social History: household members spouse Safety & Behavioral: Feels Safe in Current Yes Environment Been Physically Hurt or No Threatened By a Person Tobacco & Substance use: Smoking Status Former smoker alcohol intake current alcohol intake frequency holiday/special occasion Substance Use Type does not use Meds Home Medications and Allergies Home Medications Medication Instructions Recorded Confirmed Type ascorbic acid (vitamin C) 1,000 mg 1,000 mg PO DAILY 04/26/22 05/03/22 History capsule bacillus coagulans-inulin 1 1 cap PO DAILY 04/26/22 05/03/22 History billion cell-250 mg capsule (Probiotic with Prebiotic) cholecalciferol (vitamin D3) 50 50 mcg PO DAILY 04/26/22 05/03/22 History mcg (2,000 unit) tablet diazepam 5 mg tablet 5 mg PO BEDTIME PRN Sleep 04/26/22 05/03/22 History magnesium 200 mg tablet 400 mg PO DAILY 04/26/22 05/03/22 History melatonin 5 mg tablet 5 mg PO BEDTIME PRN Sleep 04/26/22 05/03/22 History pravastatin 40 mg tablet 40 mg PO DAILY 04/26/22 05/03/22 History vitamin B complex (B 1 tab PO DAILY 04/26/22 05/03/22 History Complex-Vitamin B12 tablet) montelukast 10 mg tablet 10 mg PO DAILY 05/03/22 05/03/22 History apixaban 2.5 mg tablet (Eliquis) 2.5 mg PO BID upper extremity DVT 05/10/22 Rx #60 tabs ondansetron 4 mg disintegrating 4 mg PO Q6H PRN Nausea And 05/17/22 Rx tablet Vomiting #30 tabs fentanyl 12 mcg/hr transdermal 1 patch topical Q3D 05/28/22 05/28/22 History patch quetiapine 25 mg tablet (Seroquel) 25 mg PO BEDTIME 05/28/22 05/28/22 History sertraline 25 mg tablet 25 mg PO BEDTIME 05/28/22 05/28/22 History Allergies Allergy/AdvReac Type Severity Reaction Status Date / Time adhesive tape [ADHESIVE TAPE] Allergy Intermediate PLASTIC Verified 05/28/22 16:03 TAPE-RASH latex [LATEX] Allergy Intermediate RASH Verified 05/28/22 16:03 Exam Vital Signs (past 8 hours): - 05/28/22 16:00 05/28/22 16:34 05/28/22 17:00 Temperature 97.8 F Pulse Rate 74 71 75 Respiratory Rate 30 H 31 H 30 H Blood Pressure 133/62 Pulse Oximetry 94 96 97 Oxygen Delivery Method Nasal Cannula Oxygen Flow Rate 2 05/28/22 17:30 Temperature Pulse Rate 75 Respiratory Rate 32 H Blood Pressure 119/85 Pulse Oximetry 93 Oxygen Delivery Method Oxygen Flow Rate Oxygen Delivery Method Nasal Cannula Oxygen Flow Rate 2 Narrative Exam Narrative: General: She is alert good historian she appears to have weight loss and a dry mouth. HEENT. Patient has a bandage on her right neck. She has obvious lymphadenopathy and swelling to the right side of her face neck Cardio. S1-S2 slight systolic murmur Respiratory. Mild increased work of breathing there is some mild crackles bilaterally. Decreased breath sounds the right upper base Abdomen. Soft nontender no rebound or guarding Extremities. No edema full range of motion Objective Labs 05/28/22 16:20 05/28/22 16:20 Labs: Laboratory Results - last 24 hr 05/28/22 05/28/22 05/28/22 16:10 16:20 16:20 WBC 23.0 H RBC 3.54 L Hgb 11.0 L Hct 33.4 L MCV 94.3 MCH 31.2 MCHC 33.1 RDW 17.4 H Plt Count 222 Neut % (Auto) 84.2 H Lymph % (Auto) 5.4 L [place] % (Auto) 5.0 Eos % (Auto) 4.9 H Baso % (Auto) 0.5 Neut # (Auto) 78746 H Lymph # (Auto) 1200 [place] # (Auto) 1200 H Eos # (Auto) 1100 H Baso # (Auto) 100 PT 15.5 H INR 1.3 APTT 25 L Sodium Potassium Chloride Carbon Dioxide BUN Creatinine Estimated GFR BUN/Creatinine Ratio Glucose Calcium Magnesium Total Bilirubin AST ALT Alkaline Phosphatase Total Creatine Kinase CK-MB (CK-2) CK-MB (CK-2) Rel Index Troponin I Total Protein Albumin Globulin Albumin/Globulin Ratio SARS-CoV-2 (PCR) Negative 05/28/22 16:20 WBC RBC Hgb Hct MCV MCH MCHC RDW Plt Count Neut % (Auto) Lymph % (Auto) [place] % (Auto) Eos % (Auto) Baso % (Auto) Neut # (Auto) Lymph # (Auto) [place] # (Auto) Eos # (Auto) Baso # (Auto) PT INR APTT Sodium 140 Potassium 4.0 Chloride 100 Carbon Dioxide 36 H BUN 33 H Creatinine 0.73 Estimated GFR > 60 BUN/Creatinine Ratio 45.2 H Glucose 106 Calcium 9.1 Magnesium 2.5 H Total Bilirubin 0.5 AST 20 ALT 25 Alkaline Phosphatase 70 Total Creatine Kinase 30 CK-MB (CK-2) TNP CK-MB (CK-2) Rel Index TNP Troponin I 0.134 H* Total Protein 5.5 L Albumin 2.8 L Globulin 2.7 Albumin/Globulin Ratio 1.0 SARS-CoV-2 (PCR) Assessment & Plan Assessment and plan (1) Elevated troponin: Status: Acute Plan Right-sided large [id number]-gnry lung cancer undergoing immunotherapy 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 She is undergoing treatment with immune therapy with Oncology. If she does have a mass lesion would recommend starting her on dexamethasone if no mass occupying lesion then this would include continued ongoing treatment of her lung cancer. Non ST wave myocardial infarction patient without chest pain. No significant ST changes on EKG although ST nonspecific changes are present cardiology was consulted the ER they recommended medical management patient already on full anticoagulation with Eliquis I am nervous of starting her on an aspirin due to recent history of significant bleeding she is already on anticoagulation I will start on low-dose beta-dimas. Patient recently had an echocardiogram just 1 month ago. I am reluctant to repeat as it I am not sure that it would change medical management. Will continue to trend serial cardiac enzymes continue with a beta-dimas. As cardiac enzymes start to reduce we will go ahead and send patient home once stable if there are no concerns or complications as I am not sure medical intervention would be appropriate in this case. Significant protein calorie malunion nutrition with a BMI of 18 in a patient with head neck and lung cancer. Patient has difficult time eating and undergoing chemotherapy. She is getting ongoing nutritional evaluation and support in the hospital and as an outpatient. Upper extremity venous thromboembolism. Continue with Eliquis no signs of b leeding she is at 2.5 mg twice daily as recommended by the oncologist. 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 Other medical problems include hypertension hyperlipidemia which are stable. Disposition and plan. Trend cardiac enzymes. What stable and decreasing patient will likely be discharged on additional beta-dimas without aspirin as she is fully anticoagulated and risk of bleeding is high. Patient seen and evaluated again this morning. Updated care plan with patient. Cardiac enzyme mildly elevated again this morning patient completely asymptomatic. Reviewed patient's recent echocardiogram elected not to repeat as it was just done 4 weeks ago. Reordered EKG. Continue with beta-dimas. Re- evaluate with cardiac enzymes this afternoon. If cardiac enzymes are trending down patient will be discharged. Home with a beta-dimas. CT scan of the head was reviewed. Does not show sign of intracranial lesion and pupil dilation is probably due to Nany syndrome. Patient anxious to get home as she will undergo chemotherapy treatment on Tuesday. Disposition and plan if patient's cardiac enzymes are improved this afternoon will discharge home with beta-dimas if still increased would recommend further evaluation admission to the hospital Time Spent With Patient Critical Care time: I spent a total of [] minutes of critical care time on this patient's care today; this time is exclusive of procedural time.
[2022-05-28] MEDS: LACTATED RINGERS 1,000 ML 21 ML IV (19:19)
[2022-05-28] MEDS: APIXABAN 5 MG TABLET 2.5 MG PO (22:03)
[2022-05-28] MEDS: METOPROLOL ER 25 MG TABLET PO (22:58)
[2022-05-28] MEDS: diazePAM 5 MG TABLET PO (23:04)
[2022-05-28] MEDS: SENNOSIDES 8.6 MG TABLET 17.2 MG PO (23:09)
[2022-05-29] VITALS (39 sets, daily range): BP systolic 95–145; BP diastolic 56–107; PULSE 63–87; RESP 16–40; TEMP 36.6–37.6; O2SAT 92–99; BMI 17.9
[2022-05-29 05:29] LABS: Add Manual Diff / Slide Review YES; Hematocrit 34.6 % (36-46); Hemoglobin 11.4 g/dL (12.0-16.0); Mean Corpuscular HGB Conc 32.9 % (30-36); Mean Corpuscular Hemoglobin 31.2 PG (26-34); Mean Corpuscular Volume 94.8 fL (80-100); Platelet Count 212 X10^3/uL (150-400); Red Blood Cell Count 3.65 X10^6/uL (4.0-5.2); Red Cell Distribution Width 17.9 % (11.6-14.8); White Blood Cell Count 25.1 X10^3/uL (4.5-11.0)
[2022-05-29 05:34] LABS: Alanine Aminotransferase 25 IU/L (<35); Albumin 2.8 g/dL (3.5-5.0); Albumin Globulin Ratio 1.1 (1.0-2.8); Alkaline Phosphatase 70 U/L (38-126); Aspartate Aminotransferase 18 IU/L (14-36); BUN Creatinine Ratio 42.4 (6-22); Bilirubin Total 0.5 mg/dL (0.2-1.3); Blood Urea Nitrogen 28 mg/dL (7-17); Calcium 8.9 mg/dL (8.4-10.2); Carbon Dioxide 34 mmol/L (22-32); Chloride 102 mmol/L (98-107); Creatine Kinase 32 U/L (30-135); Estimated Glomerular Filt Rate > 60 mL/min (>60); Globulin 2.6 g/dL (1.7-4.1); Glucose 121 mg/dL (80-110); HEMOLYSIS < 15 (0-50); Potassium 3.7 mmol/L (3.4-5.1); Sodium 139 mmol/L (137-145); Total Protein 5.4 g/dL (6.3-8.2)
[2022-05-29 05:59] LABS: Troponin I 0.163 ng/mL (0.01-0.034)
[2022-05-29 06:14] LABS: Anisocytosis 2+; Neutrophils Absolute Manual 21837 /uL (3000-5900); Ovalocytes 1+; Total Cells Counted 100
[2022-05-29] MEDS: APIXABAN 5 MG TABLET 2.5 MG PO ×2 (09:02→20:32)
[2022-05-29] MEDS: PRAVASTATIN 20 MG TABLET 40 MG PO (09:03)
[2022-05-29] MEDS: MORPHINE 2 MG/ML INJ IV ×3 (12:00→19:14)
--- NOTE | 2022-05-29 12:24 | CM.DANOTE ---
Pt is an 81 yo female, resident [facility], recently diagnosed head and neck cancer/eqg-srbxc-lcuh cancer of the left lung without any specific type yet. Pt admitted for Chest Pain r/o. PCP: Dr Leander Cabrales: YOU Vincent/ BORA Siu Reviewed chart, met w/patient and spouse bedside in the ED while awaiting bed in Acute Care vs discharge home and introduced self and role. Patient very pleasant, states she was hoping to return home today. Patient reports she is motly indp at baseline, uses a walker around their home. Spouse able to assist as needed. Pt has home oxygen now and typically uses around 1-2LO2. Spouse and pt confirm that [facility] referral made when pt last discharged about a month ago to home and feel HH has been helpful but that biggest concern is attempting to get pt's medication doses more therapeutic for better sleep. Pt started her immunotherapy with Dr. Valencia at [facility] and has her next appointment and tx in 2 days on Tue05/31/22 and started her Onc tx this month with establish care appointment completed. Per MD, awaiting 1200 labs to determine pt's cardiac enzymes to confirm if pt stable for d/c home vs continue with admission. Pt and spouse currently hopeful for d/c home today with [facility] and feel they are able to manage pt's needs, especially if she can begin to sleep better, and deny any other caregivers or supports in place at this time. SW encouraged them to also reach out to [facility] Pt Nav[facility], if they have any further questions or needs. SW faxed clinicals to [facility] to review for pt's Obs admission and no Resume Orders or new F2F needed at this time. Plan: SW to follow for noon labs to determine if pt stable for d/c home with spouse today vs tomorrow with [facility] and ongoing oncology tx at [facility]. JATIN Arenas Discharge Planning/Care Management CM Discharge Assessment Start: 05/29/22 12:22 Freq: Status: Active Protocol: Document 05/29/22 12:22 BF (Rec: 05/29/22 12:24 BF [id number]) Discharge Planning Assessment Assigned Claims Auditor JATIN Ramirez DPOA/Assigned Designee Name Spouse Maciej Contact Information [phone] Advance Directives? Yes Advance Directives on File No: states full code History Provided By Patient,Significant Other, Medical Record Has Patient been admitted in last 30 Yes days? Comment Pt was last discharged first part of May home with [facility] and spouse Prior Living Arrangements House Household Members spouse Type of transporation used prior to Relies on Others admit Independent with ADL's No Is patient alert and oriented? Yes Needs Assistance With Bathing,Meal Prep,Managing Medications,Home Chores / Shopping Caregiver for Another No Community Services used prior to Home Health Nurse admission: DME Already Rented / Owned Bath Bench,FWW / Walker,Oxygen Comment Has home oxygen at baseline Patient/Family Preference Home with Home Health Comment [facility] Barriers to Discharge No Discharge Plan Home with Home Health Community Services Home Health Nurse Transportation Arrangement Spouse Referrals Initiated Home Health Additional Comment [facility] Whiteboard Updated in Patient Room with Yes name and ext. # of Claims Auditor Review Status In Process Please Provide Date Initial DC 05/29/22 Assessment Was Performed Next Review Type Continued Stay Review
[2022-05-29 12:33] LABS: Creatine Kinase 29 U/L (30-135)
[2022-05-29 12:49] LABS: Troponin I 0.139 ng/mL (0.01-0.034)
[2022-05-29 16:24] LABS: UR Morphine/Opiate cutoff 300 Positive (Negative); Ur Creatinine Normal (Normal); Ur Specific Gravity Normal (Normal); Urine Amphetamines Negative (Negative); Urine Barbiturates Negative (Negative); Urine Cocaine Negative (Negative); Urine MDMA Negative (Negative); Urine Methamphetamines Negative (Negative); Urine Phencyclidine Negative (Negative); Urine Tetrahydrocannabinol Negative (Negative); Urine pH Normal (Normal)
[2022-05-29 16:25] LABS: Urine Benzodiazepines Positive (Negative); Urine Methadone Negative (Negative); Urine Oxycodone Negative (Negative); Urine Tricyclic Antidepressant Negative (Negative)
--- NOTE | 2022-05-29 19:21 | PC.NURSE ---
pt alert but forgetful. confused at times. doesn't really ask for pain meds, however, came to check on patient at 1900 and she was in a lot of pain 10/11. gave morphine. said oxycodone does not work for her, she has high tolerance for pain med.
[2022-05-29] MEDS: SENNOSIDES 8.6 MG TABLET 17.2 MG PO (20:32)
[2022-05-30] MEDS: diazePAM 5 MG TABLET PO (00:33)
[2022-05-30 02:00] VITALS: BP 96/54; PULSE 66; RESP 20; TEMP 37.1; O2SAT 97
[2022-05-30 06:48] VITALS: BP 107/65; PULSE 71; RESP 17; TEMP 37.2; O2SAT 95
[2022-05-30 08:00] VITALS: BP 121/72; PULSE 68; RESP 20; TEMP 37.1; O2SAT 100
--- NOTE | 2022-05-30 08:54 | P.PN_ITS ---
Subjective Subjective Date Patient Seen: 05/29/22 Time Patient Seen: 08:00 Interval history: Patient seen and evaluated in the emergency department. Discussed care with the emergency room physician and nurses today. Repeat troponin. Patient expresses wishes to go home as soon as possible. If cardiac enzymes are decreasing patient would like to be discharged. Further evaluation later in the day. Just because of difficult night boarding in the emergency department felt uncomfortable going home so patient was then transferred from the emergency department at medical floor. Patient's vital signs have been stable she is been eating well. She ambulates with assistance he is on chronic oxygen at home. She does have home health. Exam Vital Signs (past 8 hours): - 05/30/22 02:00 05/30/22 06:48 Temperature 98.7 F 98.9 F Pulse Rate 66 71 Respiratory Rate 20 17 Blood Pressure 96/54 L 107/65 Pulse Oximetry 97 95 Oxygen Flow Rate 4 4 Fraction of Inspired Oxygen 38 SaO2/FiO2 Ratio 242 Oxygen Delivery Method Nasal Cannula Oxygen Flow Rate 4 Narrative Exam Narrative: Gen.: Alert good historian HEENT: Unequal pupils Left-sided neck mass with bandage in place with significant lymphadenopathy and swelling. Cardio: S1-S2 regular rate and rhythm no murmurs appreciated. Respiratory: Lungs are clear to auscultation no wheezes or crackles normal respiratory effort. Abdomen: Soft nontender no rebound or guarding no liver spleen enlargement no appreciable hernias Extremities: Upper extremity swelling Objective Labs 05/29/22 05:05 05/29/22 05:05 Labs: Laboratory Results - last 24 hr 05/29/22 05/29/22 12:05 15:55 Total Creatine Kinase 29 L CK-MB (CK-2) TNP CK-MB (CK-2) Rel Index TNP Troponin I 0.139 H* U Opiates 300ng/mL cut Positive H Ur Oxycodone Screen Negative Urine Methadone Screen Negative Ur Barbiturates Screen Negative U Tricyclic Antidepress Negative Ur Phencyclidine Scrn Negative Ur Amphetamines Screen Negative U Methamphetamines Scrn Negative Ur MDMA Scrn (Ecstasy) Negative U Benzodiazepines Scrn Positive H Urine Cocaine Screen Negative U Marijuana (THC) Screen Negative [facility] Medical History Facet arthropathy, cervical Fractures (~2018) HLD (hyperlipidemia) Measles (~1949) Staph aureus infection (04/09/22) Vertigo (~2013) Vertigo Surgical History Anesthesia History of biopsy (03/24/22) History of hip replacement (~2016) History of hysterectomy (~1966) Family History Father Cancer Brother Melanoma Mother Lung cancer Social History household members: spouse Smoking Status: Former smoker alcohol intake: current substance use type: does not use Assessment & Plan Assessment and plan (1) Deep vein thrombosis, upper left extremity: Status: Acute (2) Elevated troponin: Status: Acute (3) Lung cancer: Qualifiers: Laterality: unspecified laterality Lung location: unspecified part of lung Qualified Code(s): C34.90 - Malignant neoplasm of unspecified part of unspecified bronchus or lung Status: Acute Plan Right-sided large brw-[id number] lung cancer undergoing immunotherapy 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 CT of head shows no intracranial pathology. Getting outpatient immunotherapy. Pain is well controlled. Dressing changes to neck. Non ST wave myocardial infarction patient without chest pain.? No significant ST changes on EKG although ST nonspecific changes are present cardiology was consulted the ER they recommended medical management patient already on full anticoagulation with Eliquis hold off on aspirin because of risk of bleeding. Continue with beta-dimas. Cardiac enzymes are decreasing. Medically optimized at this point. And will anticipate discharge Significant protein calorie malunion nutrition with a BMI of 18 in a patient with head neck and lung cancer.? Patient has difficult time eating and undergoing chemotherapy.? She is getting ongoing nutritional evaluation and support in the hospital and as an outpatient. Upper extremity venous thromboembolism.? Continue with Eliquis no signs of bleeding she is at 2.5 mg twice daily as recommended by the oncologist.? We will continue with this patient has DVT related edema.? Which is chronic and stable. Hypertension continue with antihypertensives Hyperlipidemia? Disposition and plan.? Cardiac enzymes have improved anticipate discharge 24 hours. Time Spent With Patient Critical Care time: I spent a total of [] minutes of critical care time on this patient's care today; this time is exclusive of procedural time.
--- NOTE | 2022-05-30 08:57 | P.DS_ITS ---
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 Patient also with a history of recent sub clavicular infection after lymph node biopsy extensive bilateral jugular venous thrombosis COPD concern for postobstructive pneumonia with hypoxia hypertension severe on chronic protein malnutrition acute systolic heart failure anxiety admitted to the hospital because her and her noticed some increasing blurry vision in change in pupil size. She says otherwise she is been doing okay considering. She says she started her immunotherapy and feels weak run down nauseated. She is on an every 3 week cycle just started she is not feels like it is doing much at this point. Patient has no complaints of chest pain she is mildly short of breath. She has a bandage on her neck she is a good historian her sitting at the bedside. Other than a blurry vision and change in pupil she has generalized weakness but no numbness and tingling in her hands and feet no loss of balance. She has no difficulty with speech or difficulty with word finding. On her workup and evaluation in the emergency department patient had elevation of her white blood cell count with chronic normal electrolytes normal kidney function her testing also revealed a chest x-ray head and neck CTA peripheral vascular ultrasound soft tissue neck CT head and neck ultrasound and echocardiog keiry ultrasound which have all been done in the last month. These were reviewed. In the emergency room cardiac enzymes were done which showed moderate elevation of cardiac enzyme as mentioned patient denies any chest pain or consistent shortness of breath. EKG revealed mild ST to T-wave changes which is no different than previous EKGs. 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 Patient underwent workup and evaluation which ultimately was assumed to be due to Nany syndrome as she has no intracranial mass. Patient has fairly aggressive stage IV lung cancer getting currently immunotherapy with significant complications including lymp hadenopathy respiratory failure significant malnutrition. Patient on intake to the emergency room had cardiac enzymes which were elevated patient was asymptomatic. Patient had no ST wave changes. Patient cardiac enzymes initially trended a little bit up and then went back down. Thought to be due to underlying coronary artery disease and or related to underlying malignancy. Patient was started on a beta-dimas. She was not elected to be started on an aspirin due to her risk of bleeding she is currently on Eliquis 2.5 mg a day. She is on a statin medication already. Cardiology recommended non interventional and medical management. During her stay she was eating drinking. Little bit wobbly. Patient has been at home with her home health and a daughter who comes down to help out. Plan for them is to continue immunotherapy as an outpatient. Exam Vital Signs (past 8 hours): - 05/30/22 02:00 05/30/22 06:48 Temperature 98.7 F 98.9 F Pulse Rate 66 71 Respiratory Rate 20 17 Blood Pressure 96/54 L 107/65 Pulse Oximetry 97 95 Oxygen Flow Rate 4 4 Fraction of Inspired Oxygen 38 SaO2/FiO2 Ratio 242 Oxygen Delivery Method Nasal Cannula Oxygen Flow Rate 4 Objective Labs 05/29/22 05:05 05/29/22 05:05 Labs: Laboratory Results - last 24 hr 05/29/22 05/29/22 12:05 15:55 Total Creatine Kinase 29 L CK-MB (CK-2) TNP CK-MB (CK-2) Rel Index TNP Troponin I 0.139 H* U Opiates 300ng/mL cut Positive H Ur Oxycodone Screen Negative Urine Methadone Screen Negative Ur Barbiturates Screen Negative U Tricyclic Antidepress Negative Ur Phencyclidine Scrn Negative Ur Amphetamines Screen Negative U Methamphetamines Scrn Negative Ur MDMA Scrn (Ecstasy) Negative U Benzodiazepines Scrn Positive H Urine Cocaine Screen Negative U Marijuana (THC) Screen Negative PFSH Medical History Facet arthropathy, cervical Fractures (~2017) HLD (hyperlipidemia) Measles (~1949) Staph aureus infection (04/09/22) Vertigo (~2013) Vertigo Surgical History Anesthesia History of biopsy (03/24/22) History of hip replacement (~2016) History of hysterectomy (~1966) Family History Father Cancer Brother Melanoma Mother Lung cancer Social History household members: spouse Smoking Status: Former smoker alcohol intake: current substance use type: does not use Discharge Plan Discharge Plan Patient Disposition: Home Discharge orders & Medications Prescriptions: New metoprolol succinate 25 mg tablet extended release 24 hr 25 mg PO DAILY Qty: 30 0RF Continued pravastatin 40 mg Tablet 40 mg PO DAILY vitamin B complex [B Complex-Vitamin B12] Tablet 1 tab PO DAILY diazepam 5 mg Tablet 5 mg PO BEDTIME PRN (Reason: Sleep) magnesium 200 mg Tablet 400 mg PO DAILY melatonin 5 mg Tablet 5 mg PO BEDTIME PRN (Reason: Sleep) cholecalciferol (vitamin D3) 50 mcg (2,000 unit) Tablet 50 mcg PO DAILY Probiotic with Prebiotic 1 billion-250 cell-mg Capsule 1 cap PO DAILY ascorbic acid (vitamin C) 1,000 mg Capsule 1,000 mg PO DAILY Eliquis 2.5 mg Tablet 2.5 mg PO BID Qty: 60 3RF quetiapine [Seroquel] 25 mg tablet 25 mg PO BEDTIME Label Comments: Take 1 tablet by mouth at bedtime sertraline 25 mg tablet 25 mg PO BEDTIME Label Comments: Take 1 tablet by mouth at bedtime fentanyl 12 mcg/hr patch 72 hour 1 patch topical Q3D Label Comments: APPLY 1 PATCH EVERY 72 HOURS montelukast 10 mg tablet 10 mg PO DAILY Follow up/Referrals: Mika Tabor MD [Primary Care Provider] - Visit Report/Discharge Packet Stand Alone Forms: Patient Portal/API, Stroke Signs & Symptoms Discharge Data Primary Care Provider: Mika Tabor Attending Provider: Jose Jha
[2022-05-30 09:08] VITALS: O2SAT 94
--- NOTE | 2022-05-30 09:25 | CM.DPC ---
DCP Discharge Home with HH Per MD, pt is medically stable to discharge home with spouse and Resume HH and pt really wanting to make it to her Oncology appointment tomorrow 05/31/22. Per MD, pt could likely benefit from Hospice but pt and spouse not yet ready to stop Oncology tx and wanting to pursue treatment still. SW called [facility] and faxed clinicals to review and pt Observation Status so no new orders needed. Plan: Patient to d/c home today via spouse POV and [facility] and close outpt f/u with Dr. Valencia Oncologist tomorrow. JATIN Arenas
[2022-05-30 09:30] VITALS: O2SAT 100
[2022-05-30] MEDS: APIXABAN 5 MG TABLET 2.5 MG PO (09:45)
[2022-05-30] MEDS: PRAVASTATIN 20 MG TABLET 40 MG PO (09:46)
--- NOTE | 2022-05-30 09:49 | PC.NURSE ---
pt up in chair for bf took a few bites-noted open sore to left butt off loading when back to chair. tylenol for lower arm pain 07/12
[2022-05-30] MEDS: ACETAMINOPHEN 325 MG TABLET 650 MG PO (09:57)
--- NOTE | 2022-05-30 13:22 | PC.NURSE ---
pt and spouse given written and verbal discharge instruction, picc line in left upper arm intact for outpt treatments. Allyvn 2x2 applied to open sore on left butt.
== END 2022-05-30 13:29 | disposition home health service (06) | DRG 280 ==
LOC: ED 17:17 → AC 05-29 14:41
PROVIDERS: Admitting Provider Family Medicine; Emergency Provider Emergency Medicine; Family Provider Family Medicine; PCP Family Medicine; Referring Provider Emergency Medicine; Visit Provider Family Medicine
DX: I21.4 Non-ST elevation (NSTEMI) myocardial infarction (principal); E43 Unspecified severe protein-calorie malnutrition; I82.622 Acute embolism and thrombosis of deep veins of left upper extremity; C34.90 Malignant neoplasm of unspecified part of unspecified bronchus or lung; Z68.1 Body mass index [BMI] 19.9 or less, adult; J96.10 Chronic respiratory failure, unspecified whether with hypoxia or hypercapnia; I10 Essential (primary) hypertension; G90.2 Horner's syndrome; J44.9 Chronic obstructive pulmonary disease, unspecified; E78.5 Hyperlipidemia, unspecified; Z99.81 Dependence on supplemental oxygen; Z87.891 Personal history of nicotine dependence; Z20.822 Contact with and (suspected) exposure to COVID-19; Z79.01 Long term (current) use of anticoagulants
CPT/HCPCS: 36415; 70496; 70498; 71045; 80053; 80305; 82550; 83735; 84484; 85007; 85025; 85610; 85730; 87635; 93005; 94760; 99223; 99232; 99238; 99285; C9803; G0378; J2270; Q9967

== ENCOUNTER → 2022-06-07 10:36 | Outpatient (CLI) | payer BC, SELFPAY ==
[2022-05-29 15:03] VITALS: BMI 17.9
--- NOTE | 2022-06-07 10:39 | DI.US.S_ITS ---
PROCEDURE: US PERIP VENOUS UP EXTREM LT INDICATIONS: Left arm swelling and warm. Picc line TECHNIQUE: Real-time imaging, as well as color and pulse Doppler interrogation, was performed of the left upper extremity deep veins from the inferior neck to the antecubital fossa. COMPARISON: [facility], , [facility] VENOUS UP EXTREM KEITH, 05/06/2022, 17:01. FINDINGS: Nonocclusive thrombus is present in the internal jugular subclavian and basilic veins. Cephalic and brachial veins are patent. IMPRESSION: Nonocclusive thrombus as above. Dictated by: Therese Urena M.D. on 06/07/2022 at 12:01 Approved by: Therese Urena M.D. on 06/07/2022 at 12:01
== END ==
PROVIDERS: Family Provider Family Medicine; PCP Family Medicine; Referring Provider Internal Medicine Hematology & Oncology; Visit Provider Internal Medicine Hematology & Oncology
DX: C76.0 Malignant neoplasm of head, face and neck (principal); I82.C12 Acute embolism and thrombosis of left internal jugular vein; I82.612 Acute embolism and thrombosis of superficial veins of left upper extremity; Z95.828 Presence of other vascular implants and grafts
CPT/HCPCS: 93971

== ENCOUNTER 2022-06-12 09:03 | Inpatient (IN) | payer MEDICARE, BC, SELFPAY ==
[2022-05-29 15:03] VITALS: BMI 17.9
[2022-06-12] VITALS (91 sets, daily range): BP systolic 62–127; BP diastolic 40–83; PULSE 51–108; RESP 16–39; TEMP 37.6–38.7; O2SAT 69–99; BMI 20.1
--- NOTE | 2022-06-12 09:15 | DI.RAD.S_ITS ---
PROCEDURE: XR CHEST 1V INDICATIONS: eval for PNA TECHNIQUE: One view of the chest was acquired. COMPARISON: [facility], CR, XR CHEST 1V, 05/28/2022, 16:26. FINDINGS: Surgical changes and devices: None. Lungs and pleura: There are bilateral pleural effusions, trace on the right and moderate on the left. Adjacent to the left pleural effusion there is adjacent compressive atelectasis. No pneumothorax. The heart border is obscured. Mediastinum: Mediastinal contours appear normal. Heart size is normal. Bones and chest wall: No suspicious bony lesions. Overlying soft tissues appear unremarkable. IMPRESSION: 1. Moderate left and trace right pleural effusion. 2. Compressive atelectasis adjacent to the left pleural effusion. Dictated by: Antonio Dawn M.D. on 06/12/2022 at 8:44 Approved by: Antonio Dawn M.D. on 06/12/2022 at 8:45
[2022-06-12 09:30] LABS: Lactate (Lactic Acid) 2.1 mmol/L (0.7-2.1)
--- NOTE | 2022-06-12 09:30 | ED_ITS ---
HPI - General Adult General Chief complaint: Shortness of Breath/Dyspnea Stated complaint: lethargic Time Seen by Provider: 06/12/22 09:08 Source: patient, family () and EMS Mode of arrival: EMS Limitations: altered mental status History of Present Illness HPI narrative: 81-year-old female. Has a history of stage IV breast cancer. Earlier this week underwent her 2nd immunotherapy treatment. She is a DNR/DNI per her who is at bedside. The POLST form is not available for my review currently. She was brought in this morning by EMS for evaluation of being lethargic had increasing work of breathing. Patient's states that since her immunotherapy treatment 1 week ago she is declined. She has been less active. More problems breathing. Talking less. States that he put her to bed last night. When he went to check on her she had moved and this morning was very unresponsive to him. He stated that she did seem to wake up somewhat when EMS arrived. Patient states that overall she just does not feel very well but does not have any chest pain or shortness of breath. 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 She is on Eliquis for this. Has swelling in her left leg whic h has been going on for the past week or so. Initially started when she complained of a Charley horse in her left leg. She recently had her Eliquis increased by her primary doctor. Related Data Home Medications Medication Instructions Recorded Confirmed ascorbic acid (vitamin C) 1,000 mg 1,000 mg PO DAILY 04/26/22 06/12/22 capsule bacillus coagulans-inulin 1 1 cap PO DAILY 04/26/22 05/30/22 billion cell-250 mg capsule (Probiotic with Prebiotic) cholecalciferol (vitamin D3) 50 50 mcg PO DAILY 04/26/22 06/12/22 mcg (2,000 unit) tablet diazepam 5 mg tablet 5 mg PO BEDTIME PRN Sleep 04/26/22 06/12/22 magnesium 200 mg tablet 400 mg PO DAILY 04/26/22 06/12/22 melatonin 5 mg tablet 5 mg PO BEDTIME PRN Sleep 04/26/22 06/12/22 pravastatin 40 mg tablet 40 mg PO DAILY 04/26/22 05/30/22 vitamin B complex (B 1 tab PO DAILY 04/26/22 05/30/22 Complex-Vitamin B12 tablet) montelukast 10 mg tablet 10 mg PO DAILY 05/03/22 05/30/22 fentanyl 12 mcg/hr transdermal 1 patch topical Q3D 05/28/22 06/12/22 patch quetiapine 25 mg tablet (Seroquel) 25 mg PO BEDTIME 05/28/22 05/28/22 sertraline 25 mg tablet 25 mg PO BEDTIME 05/28/22 05/28/22 furosemide 20 mg tablet 20 mg 06/12/22 montelukast 10 mg tablet mg 06/12/22 (Singulair) pravastatin 40 mg tablet mg 06/12/22 sertraline 25 mg tablet mg 06/12/22 Previous Rx's Medication Instructions Recorded apixaban 2.5 mg tablet (Eliquis) 2.5 mg PO BID upper extremity DVT 05/10/22 #60 tabs metoprolol succinate 25 mg 25 mg PO DAILY #30 tabs 05/30/22 tablet,extended release 24 hr Allergies Allergy/AdvReac Type Severity Reaction Status Date / Time adhesive tape [ADHESIVE TAPE] Allergy Intermediate PLASTIC Verified 05/28/22 16:03 TAPE-RASH latex [LATEX] Allergy Intermediate RASH Verified 05/28/22 16:03 Review of Systems Constitutional Constitutional: Reports system reviewed and no additional complaints, except as documented Cardiovascular Cardiovascular: Reports system reviewed and no additional complaints, except as documented Respiratory Respiratory: Reports system reviewed and no additional complaints, except as documented Gastrointestinal Gastrointestinal: Reports system reviewed and no additional complaints, except as documented Integumentary/Breasts Skin/Breast: Reports system reviewed and no additional complaints, except as documented Neurologic Neurologic: Reports system reviewed and no additional complaints, except as documented Hematologic/Lymphatic On Anticoagulants: Yes Patient History Medical History Facet arthropathy, cervical Fractures (~2017) HLD (hyperlipidemia) Measles (~1949) Staph aureus infection (04/09/22) Vertigo (~2013) Vertigo Surgical History Anesthesia History of biopsy (03/24/22) History of hip replacement (~2017) History of hysterectomy (~1966) Family History Father Cancer Brother Melanoma Mother Lung cancer Social History household members: spouse Smoking Status: Former smoker alcohol intake: current substance use type: does not use Smoking Status: Former smoker alcohol intake frequency: holidays/special occasions only Substance Use Type: does not use Exam Initial Vital Signs Initial Vital Signs: Vital Signs Pulse Rate 66 06/12/22 09:09 Pulse Oximetry 85 L 06/12/22 09:09 Oxygen Delivery Method Nasal Cannula 06/12/22 09:09 Oxygen Flow Rate 4 06/12/22 09:09 Const General: ill appearing and lethargic HENMT Head: normal to inspection and normocephalic Chest Other: Wound in her left upper chest were her last biopsy was localized Resp Effort & Inspection: labored, no retractions and tachypneic Auscultation: diminished lung sounds, rhonchi and no wheezes Cardio Rate: regular rate Rhythm: regular rhythm GI Inspection: normal to inspection Skin Other: No rashes. Has wound Neuro Other: Patient is confused. Alert to person but does not know year nor place. Does move all 4 extremities Extrem Other: Swelling to left upper extremity and left lower extremity Scores GCS Mary coma scale eye opening: Spontaneous Mary coma scale verbal response: Words [place] coma scale motor response: Obey commands [place] coma scale total score: 13 Course Orders Ordered: ED Orders 06/12/22 09:00 Complete Blood Count AUTO DIFF Stat Comprehensive Metabolic Panel Stat Ethanol (ETOH) Stat Lactate (Lactic Acid) Stat Lipase Stat Magnesium Stat NT-proBNP (BNP-Adult 18+) Stat Procalcitonin Stat Troponin & CK Cardiac Panel Stat 06/12/22 09:15 XR chest 1V Stat EKG-12 Lead Stat RT Consult Eval and Treat Now 06/12/22 09:23 Arterial Blood Gas Stat 06/12/22 09:35 Respiratory Panel (Film Array) Stat High flow/High humidity nasal NOW 06/12/22 09:36 US periph venous low extrem lt Stat 06/12/22 09:45 Blood Culture Stat PTT Partial Thromboplastin Carlos Stat Prothrombin Time INR Stat 06/12/22 11:06 Ictotest Urine Stat Urinalysis and Microscopic Stat Urine Culture Stat Acetaminophen (Acetaminophen 325 Mg Tablet) 650 mg PO Q6H PRN PRN Reason: Fever/Mild Pain (1-3) Bumetanide (Bumetanide 1 Mg/4 Ml Vial) 1 mg IV NOW ONE Stop: 06/12/22 18:54 Diazepam (Diazepam 10 Mg/2 Ml Syringe) 1.5 mg IV Q6HR PRN; Protocol PRN Reason: Sedation Diazepam (Diazepam 5 Mg Tablet) 5 mg PO BEDTIME PRN PRN Reason: Sleep Enoxaparin Sodium (Enoxaparin 60 Mg/0.6 Ml Syringe) 60 mg SUBCUT BID [facility] Fentanyl (Fentanyl 12 Mcg/Patch) 12 mcg TOP Q3D MIESHA Hydromorphone HCl (Hydromorphone 0.5 Mg Inj) 0.5 mg IV Q2H PRN PRN Reason: Pain, Severe (7-10) Sodium Chloride (Normal Saline 0.9%) 1,000 mls @ 84 mls/hr IV CONT [facility] Last Admin: 06/12/22 10:04 Dose: 100 mls/hr Documented By: AT Sodium Chloride (Normal Saline 0.9%) 1,000 mls @ 42 mls/hr IV CONT [facility] Last Admin: 06/12/22 13:20 Dose: 42 mls/hr Documented By: AA Piperacillin Sod/Tazobactam (Sod 3.375 gm/ Sodium Chloride) 100 mls @ 25 mls/hr IV Q8H [facility] Last Admin: 06/12/22 14:09 Dose: 25 mls/hr Documented By: AA Vancomycin HCl (Vancomycin) 1,000 mg in 200 mls @ 200 mls/hr IV Q24H [facility] Melatonin (Melatonin 3 Mg Tablet) 6 mg PO BEDTIME PRN PRN Reason: Sleep Montelukast Sodium (Montelukast 10 Mg Tablet) 10 mg PO DAILY [facility] Morphine Sulfate (Morphine 4 Mg/Ml Inj) 2 mg IV Q4HR PRN PRN Reason: Pain, Severe (7-10) Naloxone HCl (Naloxone 0.4 Mg/Ml Vial) 0.2 mg IV Q2MIN PRN PRN Reason: Opiate Reversal Pantoprazole Sodium (Pantoprazole 40 Mg Vial) 40 mg IV DAILY [facility] Quetiapine Fumarate (Quetiapine 25 Mg Tablet) 25 mg PO BEDTIME MIESHA Sertraline HCl (Sertraline 50 Mg Tablet) 25 mg PO BEDTIME MIESHA Vancomycin HCl (Vancomycin Trough) 1 request MISC 1030 ONE Stop: 06/15/22 10:31 Vancomycin HCl (Vancomycin Peak) 1 request MISC 1300 ONE Stop: 06/15/22 13:01 Discontinued Medications Apixaban (Apixaban 5 Mg Tablet) 2.5 mg PO BID MIESHA Furosemide (Furosemide 40 Mg/4 Ml Vial) 40 mg IV NOW ONE Stop: 06/12/22 10:17 Last Admin: 06/12/22 11:00 Dose: 40 mg Documented By: AT Piperacillin Sod/Tazobactam (Sod 4.5 gm/ Sodium Chloride) 100 mls @ 200 mls/hr IV NOW ONE Stop: 06/12/22 09:38 Last Infusion: 06/12/22 10:40 Dose: 0 mls/hr Documented By: Admin: 06/12/22 10:04 Dose: 200 mls/hr Documented By: AT Vancomycin HCl (Vancomycin) 1,000 mg in 200 mls @ 200 mls/hr IV NOW ONE Stop: 06/12/22 10:36 Last Infusion: 06/12/22 12:23 Dose: 0 mls/hr Documented By: Admin: 06/12/22 11:00 Dose: 200 mls/hr Documented By: AT Vancomycin HCl (Vancomycin Per Pharmacy) 1 request [facility] [place] ONE Stop: 06/12/22 12:53 Vital Signs Vital signs: Vital Signs - 8 hr 06/12/22 09:15 06/12/22 09:40 06/12/22 10:35 Temperature 99.8 F H Pulse Rate 65 65 65 Respiratory Rate 35 H 35 H 35 H Blood Pressure 113/56 L 113/56 L 113/56 L Pulse Oximetry 85 L 85 L 85 L Oxygen Delivery Method Nasal Cannula Oxygen Flow Rate 4 06/12/22 09:09 06/12/22 09:15 06/12/22 09:15 Temperature Pulse Rate 66 108 H Respiratory Rate 36 H Blood Pressure 113/56 L Pulse Oximetry 85 L 89 L Oxygen Delivery Method Nasal Cannula Nasal Cannula Oxygen Flow Rate 4 6 06/12/22 09:20 06/12/22 09:20 06/12/22 09:30 Temperature Pulse Rate 64 64 Respiratory Rate 28 H 27 H Blood Pressure 110/53 L Pulse Oximetry 88 L 87 L Oxygen Delivery Method Oxygen Flow Rate 06/12/22 09:45 06/12/22 10:00 06/12/22 10:11 Temperature Pulse Rate 65 65 61 Respiratory Rate 28 H 25 H 27 H Blood Pressure Pulse Oximetry 97 90 L 92 Oxygen Delivery Method Oxygen Flow Rate 06/12/22 10:11 06/12/22 10:15 06/12/22 10:20 Temperature Pulse Rate 61 64 Respiratory Rate 30 H 31 H Blood Pressure 105/58 L Pulse Oximetry 94 95 Oxygen Delivery Method Heated High Flow Oxygen Flow Rate 06/12/22 10:20 06/12/22 10:30 06/12/22 10:30 Temperature Pulse Rate 60 Respiratory Rate 31 H Blood Pressure 103/56 L 109/55 L Pulse Oximetry 97 Oxygen Delivery Method Oxygen Flow Rate 06/12/22 10:40 06/12/22 10:40 06/12/22 10:45 Temperature 100.2 F H 100.4 F H Pulse Rate 58 L 56 L Respiratory Rate 29 H 29 H Blood Pressure 98/59 L Pulse Oximetry 96 97 Oxygen Delivery Method Heated High Flow Oxygen Flow Rate 06/12/22 10:50 06/12/22 10:50 06/12/22 11:00 Temperature 100.4 F H Pulse Rate 58 L Respiratory Rate 29 H Blood Pressure 103/64 113/57 L Pulse Oximetry 97 Oxygen Delivery Method Oxygen Flow Rate 06/12/22 11:00 06/12/22 11:10 06/12/22 11:10 Temperature 100.4 F H 100.6 F H Pulse Rate 56 L 55 L Respiratory Rate 27 H 25 H Blood Pressure 104/53 L Pulse Oximetry 97 99 Oxygen Delivery Method Heated High Flow Oxygen Flow Rate 06/12/22 11:15 06/12/22 11:21 06/12/22 11:21 Temperature 100.6 F H 100.6 F H Pulse Rate 58 L 57 L Respiratory Rate 23 17 Blood Pressure 117/83 Pulse Oximetry 98 97 Oxygen Delivery Method Heated High Flow Oxygen Flow Rate 06/12/22 11:30 06/12/22 11:30 06/12/22 09:57 Temperature 100.6 F H Pulse Rate 56 L 63 Respiratory Rate 24 24 Blood Pressure 116/74 110/53 L Pulse Oximetry 94 92 Oxygen Delivery Method Oxygen Flow Rate Medical Decision Making Medical Records Medical records reviewed: Yes I reviewed the patient's medical records. Lab Data Lab results reviewed: Yes I reviewed the patient's lab results. 06/12/22 09:00 06/12/22 09:00 Labs: Lab Results 03/11/23 03/11/23 03/11/23 Range/Units 09:00 09:00 09:00 WBC 23.4 H (4.5-11.0) X10^3/uL RBC 3.46 L (4.0-5.2) X10^6/uL Hgb 10.6 L (12.0-16.0) g/dL Hct 33.4 L (36-46) % MCV 96.6 (80-100) fL MCH 30.7 (26-34) PG MCHC 31.8 (30-36) % RDW 18.1 H (11.6-14.8) % Plt Count 189 (150-400) X10^3/uL Neut % (Auto) 93.3 H (50-75) % Lymph % (Auto) 2.5 L (25-40) % [place] % (Auto) 2.6 L (3-14) % Eos % (Auto) 1.5 L (2-4) % Baso % (Auto) 0.1 (0-2) % Neut # (Auto) 43112 H (4895-0475) /uL Lymph # (Auto) 600 L (4971-5446) /uL [place] # (Auto) 600 (0-900) /uL Eos # (Auto) 400 (0-450) /uL Baso # (Auto) 0 (0-100) /uL PT (10.1-12.7) SECONDS INR (0.9-1.3) APTT (26-36) SECONDS ABG pH (7.35-7.45) ABG pCO2 (35-45) mmHg ABG pO2 (80-100) mmHg ABG HCO3 (23-27) mmol/L ABG Total CO2 (23-27) mmol/L ABG O2 Saturation (95-100) % ABG Base Excess (-2-3) mmol/L FiO2 Sodium 138 (137-145) mmol/L Potassium 4.6 (3.4-5.1) mmol/L Chloride 101 (98-107) mmol/L Carbon Dioxide 40 H* (22-32) mmol/L BUN 36 H (7-17) mg/dL Creatinine 0.96 (0.52-1.04) mg/dL Estimated GFR 60 (>60) mL/min BUN/Creatinine Ratio 37.5 H (6-22) Glucose 103 (80-110) mg/dL Lactate 2.1 (0.7-2.1) mmol/L Calcium 8.3 L (8.4-10.2) mg/dL Magnesium 2.5 H (1.6-2.3) mg/dL Total Bilirubin 0.8 (0.2-1.3) mg/dL AST 18 (14-36) IU/L ALT 22 (<35) IU/L Alkaline Phosphatase 80 (38-126) U/L Total Creatine Kinase 68 (30-135) U/L CK-MB (CK-2) TNP CK-MB (CK-2) Rel Index TNP Troponin I 0.090 H (0.01-0.034) ng/mL NT-Pro-B Natriuret Pep 53987 H (<450) pg/mL Total Protein 4.9 L (6.3-8.2) g/dL Albumin 2.5 L (3.5-5.0) g/dL Globulin 2.4 (1.7-4.1) g/dL Albumin/Globulin Ratio 1.0 (1.0-2.8) Lipase 14 L (23-300) U/L Procalcitonin 0.29 (<0.5) ng/mL Urine Color Urine Appearance Urine pH (4.5-8.0) Ur Specific [place] (1.000-1.035) Urine Protein (Negative) Urine Glucose (UA) (Negative) g/dL Urine Ketones (NEGATIVE) Urine Occult Blood (Negative) Urine Nitrate (Negative) Urine Bilirubin (NEGATIVE) Ur Bilirubin Confirm (Negative) Urine Urobilinogen (0.2) E.U./dL Ur Leukocyte Esterase (NEGATIVE) Urine RBC (0-5/HPF) Urine WBC (0-5/HPF) Ur Squamous Epith Cells (0-5/HPF) Urine Bacteria (None) Hyaline Casts (None) Ethyl Alcohol < 10 ( - 10) mg/dL Chlamy pneumoniae PCR (Not Detect) Adenovirus (PCR) (Not Detect) B. pertussis DNA (PCR) (Not Detecte) B.parapertussis DNA PCR (Not Detecte) Coronavirus OC43 (PCR) (Not Detect) Coronavirus HKU1 (PCR) (Not Detect) Coronavirus 229E (PCR) (Not Detect) SARS-CoV-2 (PCR) (Not Detecte) Coronavirus NL63 (PCR) (Not Detect) Human Metapneumovir PCR (Not Detect) Influenza Type A (PCR) (Not Detect) Influenza Type B (PCR) (Not Detect) M. pneumoniae (PCR) (Not Detect) Parainfluenza 1 (PCR) (Not Detect) Parainfluenza 2 (PCR) (Not Detect) Parainfluenza 3 (PCR) (Not Detect) Parainfluenza 4 (PCR) (Not Detect) RSV (PCR) (Not Detect) Entero/Rhino (PCR) (Not Detect) 06/12/22 06/12/22 06/12/22 Range/Units 09:23 09:35 09:45 WBC (4.5-11.0) X10^3/uL RBC (4.0-5.2) X10^6/uL Hgb (12.0-16.0) g/dL Hct (36-46) % MCV (80-100) fL MCH (26-34) PG MCHC (30-36) % RDW (11.6-14.8) % Plt Count (150-400) X10^3/uL Neut % (Auto) (50-75) % Lymph % (Auto) (25-40) % [place] % (Auto) (3-14) % Eos % (Auto) (2-4) % Baso % (Auto) (0-2) % Neut # (Auto) (5697-3282) /uL Lymph # (Auto) (1207-1051) /uL [place] # (Auto) (0-900) /uL Eos # (Auto) (0-450) /uL Baso # (Auto) (0-100) /uL PT 18.5 H (10.1-12.7) SECONDS INR 1.6 H (0.9-1.3) APTT 27 (26-36) SECONDS ABG pH 7.51 H (7.35-7.45) ABG pCO2 40.9 (35-45) mmHg ABG pO2 63 L (80-100) mmHg ABG HCO3 33 H (23-27) mmol/L ABG Total CO2 35 H (23-27) mmol/L ABG O2 Saturation 95 (95-100) % ABG Base Excess 10.0 H (-2-3) mmol/L FiO2 48 Sodium (137-145) mmol/L Potassium (3.4-5.1) mmol/L Chloride (98-107) mmol/L Carbon Dioxide (22-32) mmol/L BUN (7-17) mg/dL Creatinine (0.52-1.04) mg/dL Estimated GFR (>60) mL/min BUN/Creatinine Ratio (6-22) Glucose (80-110) mg/dL Lactate (0.7-2.1) mmol/L Calcium (8.4-10.2) mg/dL Magnesium (1.6-2.3) mg/dL Total Bilirubin (0.2-1.3) mg/dL AST (14-36) IU/L ALT (<35) IU/L Alkaline Phosphatase (38-126) U/L Total Creatine Kinase (30-135) U/L CK-MB (CK-2) CK-MB (CK-2) Rel Index Troponin I (0.01-0.034) ng/mL NT-Pro-B Natriuret Pep (<450) pg/mL Total Protein (6.3-8.2) g/dL Albumin (3.5-5.0) g/dL Globulin (1.7-4.1) g/dL Albumin/Globulin Ratio (1.0-2.8) Lipase (23-300) U/L Procalcitonin (<0.5) ng/mL Urine Color Urine Appearance Urine pH (4.5-8.0) Ur Specific [place] (1.000-1.035) Urine Protein (Negative) Urine Glucose (UA) (Negative) g/dL Urine Ketones (NEGATIVE) Urine Occult Blood (Negative) Urine Nitrate (Negative) Urine Bilirubin (NEGATIVE) Ur Bilirubin Confirm (Negative) Urine Urobilinogen (0.2) E.U./dL Ur Leukocyte Esterase (NEGATIVE) Urine RBC (0-5/HPF) Urine WBC (0-5/HPF) Ur Squamous Epith Cells (0-5/HPF) Urine Bacteria (None) Hyaline Casts (None) Ethyl Alcohol ( - 10) mg/dL Chlamy pneumoniae PCR Not detected (Not Detect) Adenovirus (PCR) Not detected (Not Detect) B. pertussis DNA (PCR) Not detected (Not Detecte) B.parapertussis DNA PCR Not detected (Not Detecte) Coronavirus OC43 (PCR) Not detected (Not Detect) Coronavirus HKU1 (PCR) Not detected (Not Detect) Coronavirus 229E (PCR) Not detected (Not Detect) SARS-CoV-2 (PCR) Not detected (Not Detecte) Coronavirus NL63 (PCR) Not detected (Not Detect) Human Metapneumovir PCR Not detected (Not Detect) Influenza Type A (PCR) Not detected (Not Detect) Influenza Type B (PCR) Not detected (Not Detect) M. pneumoniae (PCR) Not detected (Not Detect) Parainfluenza 1 (PCR) Not detected (Not Detect) Parainfluenza 2 (PCR) Not detected (Not Detect) Parainfluenza 3 (PCR) Not detected (Not Detect) Parainfluenza 4 (PCR) Not detected (Not Detect) RSV (PCR) Not detected (Not Detect) Entero/Rhino (PCR) Not detected (Not Detect) 06/12/22 06/12/22 Range/Units 11:06 11:35 WBC (4.5-11.0) X10^3/uL RBC (4.0-5.2) X10^6/uL Hgb (12.0-16.0) g/dL Hct (36-46) % MCV (80-100) fL MCH (26-34) PG MCHC (30-36) % RDW (11.6-14.8) % Plt Count (150-400) X10^3/uL Neut % (Auto) (50-75) % Lymph % (Auto) (25-40) % [place] % (Auto) (3-14) % Eos % (Auto) (2-4) % Baso % (Auto) (0-2) % Neut # (Auto) (8521-3878) /uL Lymph # (Auto) (2351-1233) /uL [place] # (Auto) (0-900) /uL Eos # (Auto) (0-450) /uL Baso # (Auto) (0-100) /uL PT (10.1-12.7) SECONDS INR (0.9-1.3) APTT (26-36) SECONDS ABG pH (7.35-7.45) ABG pCO2 (35-45) mmHg ABG pO2 (80-100) mmHg ABG HCO3 (23-27) mmol/L ABG Total CO2 (23-27) mmol/L ABG O2 Saturation (95-100) % ABG Base Excess (-2-3) mmol/L FiO2 Sodium (137-145) mmol/L Potassium (3.4-5.1) mmol/L Chloride (98-107) mmol/L Carbon Dioxide (22-32) mmol/L BUN (7-17) mg/dL Creatinine (0.52-1.04) mg/dL Estimated GFR (>60) mL/min BUN/Creatinine Ratio (6-22) Glucose (80-110) mg/dL Lactate 2.3 H (0.7-2.1) mmol/L Calcium (8.4-10.2) mg/dL Magnesium (1.6-2.3) mg/dL Total Bilirubin (0.2-1.3) mg/dL AST (14-36) IU/L ALT (<35) IU/L Alkaline Phosphatase (38-126) U/L Total Creatine Kinase (30-135) U/L CK-MB (CK-2) CK-MB (CK-2) Rel Index Troponin I (0.01-0.034) ng/mL NT-Pro-B Natriuret Pep (<450) pg/mL Total Protein (6.3-8.2) g/dL Albumin (3.5-5.0) g/dL Globulin (1.7-4.1) g/dL Albumin/Globulin Ratio (1.0-2.8) Lipase (23-300) U/L Procalcitonin (<0.5) ng/mL Urine Color Yellow Urine Appearance Clear Urine pH 6.5 (4.5-8.0) Ur Specific [place] 1.015 (1.000-1.035) Urine Protein Trace H (Negative) Urine Glucose (UA) Negative (Negative) g/dL Urine Ketones Negative (NEGATIVE) Urine Occult Blood Negative (Negative) Urine Nitrate Negative (Negative) Urine Bilirubin 2+ H (NEGATIVE) Ur Bilirubin Confirm Negative (Negative) Urine Urobilinogen 0.2 (0.2) E.U./dL Ur Leukocyte Esterase Negative (NEGATIVE) Urine RBC 0-1/hpf (0-5/HPF) Urine WBC 0-1/hpf (0-5/HPF) Ur Squamous Epith Cells 0-1 /hpf (0-5/HPF) Urine Bacteria None seen (None) Hyaline Casts 1-5/lpf (None) Ethyl Alcohol ( - 10) mg/dL Chlamy pneumoniae PCR (Not Detect) Adenovirus (PCR) (Not Detect) B. pertussis DNA (PCR) (Not Detecte) B.parapertussis DNA PCR (Not Detecte) Coronavirus OC43 (PCR) (Not Detect) Coronavirus HKU1 (PCR) (Not Detect) Coronavirus 229E (PCR) (Not Detect) SARS-CoV-2 (PCR) (Not Detecte) Coronavirus NL63 (PCR) (Not Detect) Human Metapneumovir PCR (Not Detect) Influenza Type A (PCR) (Not Detect) Influenza Type B (PCR) (Not Detect) M. pneumoniae (PCR) (Not Detect) Parainfluenza 1 (PCR) (Not Detect) Parainfluenza 2 (PCR) (Not Detect) Parainfluenza 3 (PCR) (Not Detect) Parainfluenza 4 (PCR) (Not Detect) RSV (PCR) (Not Detect) Entero/Rhino (PCR) (Not Detect) Imaging Data Chest x-ray: Radiologist's Impression: PROCEDURE:? XR CHEST 1V ? INDICATIONS:? eval for PNA ? TECHNIQUE:? One view of the chest was acquired.? ? COMPARISON:? [facility], , XR CHEST 1V, 05/28/2022, 16:26. ? FINDINGS:? ? Surgical changes and devices:? None.? ? Lungs and pleura:? There are bilateral pleural effusions, trace on the right and moderate on the left.? Adjacent to the left pleural effusion there is adjacent compressive atelectasis.? No pneumothorax.? The heart border is obscured. ? Mediastinum:? Mediastinal contours appear normal.? Heart size is normal.? ? Bones and chest wall:? No suspicious bony lesions.? Overlying soft tissues appear unremarkable.? ? IMPRESSION:? 1. Moderate left and trace right pleural effusion. 2. Compressive atelectasis adjacent to the left pleural effusion.? ECG Data Attestation: I personally reviewed and interpreted this ECG as follows: Interpretation: Sinus rhythm Ventricular rate is 65 Left axis deviation Nonspecific ST T wave changes MDM Narrative Medical decision making narrative: Patient does have some significant new medical issues which her most likely determining her presentation today. According to the patient's she is not at her baseline mental status but this apparently has been worsening over the past couple days. She does have an increased oxygen requirement over her baseline. Chest x-ray was concerning for left-sided pneumonia so antibiotics were administered. Cultures were obtained. Does have a leukocytosis but this does appear to be baseline for her as well. There is no signs of any trauma. She is on anticoagulation. Patient's did confirm that she is a DNR/DNI. Patient does require admission to hospital for further evaluation and treatment of her symptoms. Discussed the case with Dr. allison who is on-call for the patient's primary doctor who evaluated the patient here in the emergency department. We will admit for further evaluation. Discharge Plan Departure Patient Disposition: Admitted As Inpatient Clinical Impression: Acute hypoxemic respiratory failure, Altered mental status, Breast cancer, Pneumonia Admit Date/Time: 06/12/22 11:40 Admit Provider: Jonny Allison
[2022-06-12 09:31] LABS: Alanine Aminotransferase 22 IU/L (<35); Albumin 2.5 g/dL (3.5-5.0); Alkaline Phosphatase 80 U/L (38-126); Aspartate Aminotransferase 18 IU/L (14-36); BUN Creatinine Ratio 37.5 (6-22); Bilirubin Total 0.8 mg/dL (0.2-1.3); Blood Urea Nitrogen 36 mg/dL (7-17); Calcium 8.3 mg/dL (8.4-10.2); Chloride 101 mmol/L (98-107); Creatine Kinase 68 U/L (30-135); Estimated Glomerular Filt Rate 60 mL/min (>60); Globulin 2.4 g/dL (1.7-4.1); Glucose 103 mg/dL (80-110); HEMOLYSIS < 15 (0-50); Lipase 14 U/L (23-300); Magnesium 2.5 mg/dL (1.6-2.3); Potassium 4.6 mmol/L (3.4-5.1); Sodium 138 mmol/L (137-145); Total Protein 4.9 g/dL (6.3-8.2)
[2022-06-12 09:37] LABS: Carbon Dioxide 40 mmol/L (22-32)
[2022-06-12 09:40] LABS: Add Manual Diff / Slide Review NO; Basophils Absolute Auto 0 /uL (0-100); Basophils Percent Auto 0.1 % (0-2); Eosinophils Absolute Auto 400 /uL (0-450); Eosinophils Percent Auto 1.5 % (2-4); Hematocrit 33.4 % (36-46); Hemoglobin 10.6 g/dL (12.0-16.0); Lymphocytes Absolute Auto 600 /uL (1100-4500); Lymphocytes Percent Auto 2.5 % (25-40); Mean Corpuscular HGB Conc 31.8 % (30-36); Mean Corpuscular Hemoglobin 30.7 PG (26-34); Mean Corpuscular Volume 96.6 fL (80-100); Monocytes Absolute Auto 600 /uL (0-900); Monocytes Percent Auto 2.6 % (3-14); Neutrophils Absolute Auto 21800 /uL (1500-7000); Neutrophils Percent Auto 93.3 % (50-75); Platelet Count 189 X10^3/uL (150-400); Red Blood Cell Count 3.46 X10^6/uL (4.0-5.2); Red Cell Distribution Width 18.1 % (11.6-14.8); White Blood Cell Count 23.4 X10^3/uL (4.5-11.0)
[2022-06-12 09:43] LABS: NT-proBNP (BNP-Adult 18+) 11300 pg/mL (<450)
[2022-06-12 09:48] LABS: Procalcitonin 0.29 ng/mL (<0.5)
[2022-06-12] MEDS: SODIUM CHLORIDE 0.9% 1,000 ML 100 ML IV (10:04)
[2022-06-12] MEDS: PIPERACILLIN/TAZO 4.5 GM in SODIUM CHLORIDE 0.9% 100 ML IV (10:04)
[2022-06-12 10:11] LABS: HCO3 ABG 33 mmol/L (23-27); PCO2 ABG 40.9 mmHg (35-45); PO2 ABG 63 mmHg (80-100)
[2022-06-12 10:12] LABS: Fractionated Inspired Oxygen 48; TCO2 ABG 35 mmol/L (23-27)
[2022-06-12 10:24] LABS: INR 1.6 (0.9-1.3); Prothrombin Time 18.5 SECONDS (10.1-12.7)
[2022-06-12 10:27] LABS: PTT Partial Thromboplastin Tim 27 SECONDS (26-36)
[2022-06-12 10:31] LABS: Adenovirus Not Detected (Not Detect); B. parapertussis Not Detected (Not Detecte); Bordetella pertussis Not Detected (Not Detecte); Chlamydophila pneumoniae Not Detected (Not Detect); Coronavirus 229E Not Detected (Not Detect); Coronavirus HKU1 Not Detected (Not Detect); Coronavirus NL 63 Not Detected (Not Detect); Coronavirus OC43 Not Detected (Not Detect); Human Metapneumovirus Not Detected (Not Detect); Human Rhinovirus/Enterovirus Not Detected (Not Detect); Influenza A Not Detected (Not Detect); Influenza B Not Detected (Not Detect); Mycoplasma pneumoniae Not Detected (Not Detect); Parainfluenza Virus 1 Not Detected (Not Detect); Parainfluenza Virus 2 Not Detected (Not Detect); Parainfluenza Virus 3 Not Detected (Not Detect); Parainfluenza Virus 4 Not Detected (Not Detect); Respiratory Syncytial Virus Not Detected (Not Detect); SARS- CoV-2 Not Detected (Not Detecte)
[2022-06-12] MEDS: FUROSEMIDE 40 MG/4 ML VIAL IV (11:00)
[2022-06-12] MEDS: VANCOMYCIN 1,000 MG/200 ML PIGGYBACK 200 MG IV (11:00)
[2022-06-12 11:18] LABS: Ethanol (ETOH) < 10 mg/dL; Reflexed Lactate in 2 Hours Y
[2022-06-12 11:43] LABS: Appearance Urine UA CLEAR; Bilirubin Urine UA 2+ (NEGATIVE); Color Urine UA YELLOW; Glucose Urine UA NEGATIVE (Negative); Ketones Urine UA NEGATIVE (NEGATIVE); Leukocyte Esterase Urine UA NEGATIVE (NEGATIVE); Nitrite Urine UA NEGATIVE (Negative); Occult Blood Urine UA NEGATIVE (Negative); Protein Urine UA TRACE (Negative); Specific Gravity Urine UA 1.015 (1.000-1.035); Urobilinogen Urine UA 0.2 E.U./dL (0.2)
[2022-06-12 11:47] LABS: pH Urine UA 6.5 (4.5-8.0)
[2022-06-12 11:57] LABS: Bacteria Urine None Seen; Ictotest Urine Negative (Negative); RBC Urine 0-1/HPF (0-5/HPF); Squamous Epithelial Cell Urine 0-1 /HPF (0-5/HPF); WBC Urine 0-1/HPF (0-5/HPF)
[2022-06-12 11:58] LABS: Hyaline Casts Urine 1-5/LPF
[2022-06-12 12:02] LABS: Lactate 2HR (Lactic Acid Rflx) 2.3 mmol/L (0.7-2.1)
--- NOTE | 2022-06-12 12:37 | P.HP_ITS ---
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 He does not want to go to comfort care only, continue treatment at this time - she is started on iv abx in ED with some lasix which is reasonable Patient History Medical History Facet arthropathy, cervical Fractures (~2017) HLD (hyperlipidemia) Measles (~194) Staph aureus infection (04/09/22) Vertigo (~2013) Vertigo Surgical History Anesthesia History of biopsy (03/24/22) History of hip replacement (~2016) History of hysterectomy (~1966) Family & Social History Family History Father Cancer Brother Melanoma Mother Lung cancer Social History: household members spouse Safety & Behavioral: Feels Safe in Current Yes Environment Been Physically Hurt or No Threatened By a Person Tobacco & Substance use: Smoking Status Former smoker alcohol intake current alcohol intake frequency holiday/special occasion Substance Use Type does not use Meds Home Medications and Allergies Home Medications Medication Instructions Recorded Confirmed Type ascorbic acid (vitamin C) 1,000 mg 1,000 mg PO DAILY 04/26/22 05/30/22 History capsule bacillus coagulans-inulin 1 1 cap PO DAILY 04/26/22 05/30/22 History billion cell-250 mg capsule (Probiotic with Prebiotic) cholecalciferol (vitamin D3) 50 50 mcg PO DAILY 04/26/22 05/30/22 History mcg (2,000 unit) tablet diazepam 5 mg tablet 5 mg PO BEDTIME PRN Sleep 04/26/22 05/30/22 History magnesium 200 mg tablet 400 mg PO DAILY 04/26/22 05/30/22 History melatonin 5 mg tablet 5 mg PO BEDTIME PRN Sleep 04/26/22 05/30/22 History pravastatin 40 mg tablet 40 mg PO DAILY 04/26/22 05/30/22 History vitamin B complex (B 1 tab PO DAILY 04/26/22 05/30/22 History Complex-Vitamin B12 tablet) montelukast 10 mg tablet 10 mg PO DAILY 05/03/22 05/30/22 History apixaban 2.5 mg tablet (Eliquis) 2.5 mg PO BID upper extremity DVT 05/10/22 05/30/22 Rx #60 tabs fentanyl 12 mcg/hr transdermal 1 patch topical Q3D 05/28/22 05/28/22 History patch quetiapine 25 mg tablet (Seroquel) 25 mg PO BEDTIME 05/28/22 05/28/22 History sertraline 25 mg tablet 25 mg PO BEDTIME 05/28/22 05/28/22 History metoprolol succinate 25 mg 25 mg PO DAILY #30 tabs 05/30/22 Rx tablet,extended release 24 hr Allergies Allergy/AdvReac Type Severity Reaction Status Date / Time adhesive tape [ADHESIVE TAPE] Allergy Intermediate PLASTIC Verified 05/28/22 16:03 TAPE-RASH latex [LATEX] Allergy Intermediate RASH Verified 05/28/22 16:03 Review of Systems Review of Systems Narrative: all systems reviewed and negative except as otherwise documented in HPI Exam Vital Signs (past 8 hours): - 06/12/22 09:15 06/12/22 09:40 06/12/22 10:35 Temperature 99.8 F H Pulse Rate 65 65 65 Respiratory Rate 35 H 35 H 35 H Blood Pressure 113/56 L 113/56 L 113/56 L Pulse Oximetry 85 L 85 L 85 L Oxygen Delivery Method Nasal Cannula Oxygen Flow Rate 4 06/12/22 09:09 06/12/22 09:15 06/12/22 09:15 Temperature Pulse Rate 66 108 H Respiratory Rate 36 H Blood Pressure 113/56 L Pulse Oximetry 85 L 89 L Oxygen Delivery Method Nasal Cannula Nasal Cannula Oxygen Flow Rate 4 6 06/12/22 09:20 06/12/22 09:20 06/12/22 09:30 Temperature Pulse Rate 64 64 Respiratory Rate 28 H 27 H Blood Pressure 110/53 L Pulse Oximetry 88 L 87 L Oxygen Delivery Method Oxygen Flow Rate 06/12/22 09:45 06/12/22 10:00 06/12/22 10:11 Temperature Pulse Rate 65 65 61 Respiratory Rate 28 H 25 H 27 H Blood Pressure Pulse Oximetry 97 90 L 92 Oxygen Delivery Method Oxygen Flow Rate 06/12/22 10:11 06/12/22 10:15 06/12/22 10:20 Temperature Pulse Rate 61 64 Respiratory Rate 30 H 31 H Blood Pressure 105/58 L Pulse Oximetry 94 95 Oxygen Delivery Method Heated High Flow Oxygen Flow Rate 06/12/22 10:20 06/12/22 10:30 06/12/22 10:30 Temperature Pulse Rate 60 Respiratory Rate 31 H Blood Pressure 103/56 L 109/55 L Pulse Oximetry 97 Oxygen Delivery Method Oxygen Flow Rate 06/12/22 10:40 06/12/22 10:40 06/12/22 10:45 Temperature 100.2 F H 100.4 F H Pulse Rate 58 L 56 L Respiratory Rate 29 H 29 H Blood Pressure 98/59 L Pulse Oximetry 96 97 Oxygen Delivery Method Heated High Flow Oxygen Flow Rate 06/12/22 10:50 06/12/22 10:50 06/12/22 11:00 Temperature 100.4 F H Pulse Rate 58 L Respiratory Rate 29 H Blood Pressure 103/64 113/57 L Pulse Oximetry 97 Oxygen Delivery Method Oxygen Flow Rate 06/12/22 11:00 06/12/22 11:10 06/12/22 11:10 Temperature 100.4 F H 100.6 F H Pulse Rate 56 L 55 L Respiratory Rate 27 H 25 H Blood Pressure 104/53 L Pulse Oximetry 97 99 Oxygen Delivery Method Heated High Flow Oxygen Flow Rate 06/12/22 11:15 06/12/22 11:21 06/12/22 11:21 Temperature 100.6 F H 100.6 F H Pulse Rate 58 L 57 L Respiratory Rate 23 17 Blood Pressure 117/83 Pulse Oximetry 98 97 Oxygen Delivery Method Heated High Flow Oxygen Flow Rate 06/12/22 11:30 06/12/22 11:30 06/12/22 11:41 Temperature 100.6 F H 100.6 F H Pulse Rate 56 L 58 L Respiratory Rate 24 28 H Blood Pressure 116/74 Pulse Oximetry 94 97 Oxygen Delivery Method Oxygen Flow Rate 06/12/22 11:41 06/12/22 11:45 06/12/22 11:54 Temperature 100.6 F H Pulse Rate 56 L 68 Respiratory Rate 24 24 Blood Pressure 102/53 L 91/64 Pulse Oximetry 98 98 Oxygen Delivery Method Heated High Flow Oxygen Flow Rate 06/12/22 09:57 06/12/22 11:50 06/12/22 11:50 Temperature 100.8 F H Pulse Rate 63 55 L Respiratory Rate 24 23 Blood Pressure 110/53 L 91/54 L Pulse Oximetry 92 98 Oxygen Delivery Method Oxygen Flow Rate 06/12/22 12:00 06/12/22 12:00 06/12/22 12:10 Temperature 100.8 F H 100.8 F H Pulse Rate 54 L 57 L Respiratory Rate 19 24 Blood Pressure 95/50 L Pulse Oximetry 95 Oxygen Delivery Method Heated High Flow Oxygen Flow Rate 06/12/22 12:10 06/12/22 12:15 06/12/22 12:20 Temperature 100.8 F H Pulse Rate 57 L Respiratory Rate 28 H Blood Pressure 92/50 L 88/50 L Pulse Oximetry 94 Oxygen Delivery Method Oxygen Flow Rate 06/12/22 12:20 06/12/22 12:24 06/12/22 12:24 Temperature 100.8 F H 100.8 F H Pulse Rate 58 L 60 Respiratory Rate 28 H 26 H Blood Pressure 96/54 L Pulse Oximetry 96 95 Oxygen Delivery Method High Flow Nasal Cannula Heated High Flow Oxygen Flow Rate 50 06/12/22 12:25 06/12/22 12:25 Temperature 100.8 F H Pulse Rate 61 Respiratory Rate 23 Blood Pressure 93/52 L Pulse Oximetry 94 Oxygen Delivery Method Oxygen Flow Rate Oxygen Delivery Method Heated High Flow Oxygen Flow Rate 50 Narrative Exam Narrative: tired ill appearing elder with heated high flow cannula HENNC Head: normocephalic and atraumatic Eyes General: appearance normal, both eyes and all related structures Resp Other: shallwo breathing through heated high flow, absent breath sound left lower thorax Cardio Other: regular rate and rhythm, substantial peripheral edema GI Other: soft nontender Skin Other: R supraclavicular wound under dressing Neuro Other: oriented to family members but not year or location Extrem Other: extensive palpable clot burden and peripheral edema. PICC in L arm. Objective Labs 06/12/22 09:00 06/12/22 09:00 Labs: Laboratory Results - last 24 hr 06/12/22 06/12/22 06/12/22 09:00 09:00 09:00 WBC 23.4 H RBC 3.46 L Hgb 10.6 L Hct 33.4 L MCV 96.6 MCH 30.7 MCHC 31.8 RDW 18.1 H Plt Count 189 Neut % (Auto) 93.3 H Lymph % (Auto) 2.5 L [place] % (Auto) 2.6 L Eos % (Auto) 1.5 L Baso % (Auto) 0.1 Neut # (Auto) 36533 H Lymph # (Auto) 600 L [place] # (Auto) 600 Eos # (Auto) 400 Baso # (Auto) 0 PT INR APTT ABG pH ABG pCO2 ABG pO2 ABG HCO3 ABG Total CO2 ABG O2 Saturation ABG Base Excess FiO2 Sodium 138 Potassium 4.6 Chloride 101 Carbon Dioxide 40 H* BUN 36 H Creatinine 0.96 Estimated GFR 60 BUN/Creatinine Ratio 37.5 H Glucose 103 Lactate 2.1 Calcium 8.3 L Magnesium 2.5 H Total Bilirubin 0.8 AST 18 ALT 22 Alkaline Phosphatase 80 Total Creatine Kinase 68 CK-MB (CK-2) TNP CK-MB (CK-2) Rel Index TNP Troponin I 0.090 H NT-Pro-B Natriuret Pep 68727 H Total Protein 4.9 L Albumin 2.5 L Globulin 2.4 Albumin/Globulin Ratio 1.0 Lipase 14 L Procalcitonin 0.29 Urine Color Urine Appearance Urine pH Ur Specific [place] Urine Protein Urine Glucose (UA) Urine Ketones Urine Occult Blood Urine Nitrate Urine Bilirubin Ur Bilirubin Confirm Urine Urobilinogen Ur Leukocyte Esterase Urine RBC Urine WBC Ur Squamous Epith Cells Urine Bacteria Hyaline Casts Ethyl Alcohol < 10 Chlamy pneumoniae PCR Adenovirus (PCR) B. pertussis DNA (PCR) B.parapertussis DNA PCR Coronavirus OC43 (PCR) Coronavirus HKU1 (PCR) Coronavirus 229E (PCR) SARS-CoV-2 (PCR) Coronavirus NL63 (PCR) Human Metapneumovir PCR Influenza Type A (PCR) Influenza Type B (PCR) M. pneumoniae (PCR) Parainfluenza 1 (PCR) Parainfluenza 2 (PCR) Parainfluenza 3 (PCR) Parainfluenza 4 (PCR) RSV (PCR) Entero/Rhino (PCR) 06/12/22 06/12/22 06/12/22 09:23 09:35 09:45 WBC RBC Hgb Hct MCV MCH MCHC RDW Plt Count Neut % (Auto) Lymph % (Auto) [place] % (Auto) Eos % (Auto) Baso % (Auto) Neut # (Auto) Lymph # (Auto) [place] # (Auto) Eos # (Auto) Baso # (Auto) PT 18.5 H INR 1.6 H APTT 27 ABG pH 7.51 H ABG pCO2 40.9 ABG pO2 63 L ABG HCO3 33 H ABG Total CO2 35 H ABG O2 Saturation 95 ABG Base Excess 10.0 H FiO2 48 Sodium Potassium Chloride Carbon Dioxide BUN Creatinine Estimated GFR BUN/Creatinine Ratio Glucose Lactate Calcium Magnesium Total Bilirubin AST ALT Alkaline Phosphatase Total Creatine Kinase CK-MB (CK-2) CK-MB (CK-2) Rel Index Troponin I NT-Pro-B Natriuret Pep Total Protein Albumin Globulin Albumin/Globulin Ratio Lipase Procalcitonin Urine Color Urine Appearance Urine pH Ur Specific [place] Urine Protein Urine Glucose (UA) Urine Ketones Urine Occult Blood Urine Nitrate Urine Bilirubin Ur Bilirubin Confirm Urine Urobilinogen Ur Leukocyte Esterase Urine RBC Urine WBC Ur Squamous Epith Cells Urine Bacteria Hyaline Casts Ethyl Alcohol Chlamy pneumoniae PCR Not detected Adenovirus (PCR) Not detected B. pertussis DNA (PCR) Not detected B.parapertussis DNA PCR Not detected Coronavirus OC43 (PCR) Not detected Coronavirus HKU1 (PCR) Not detected Coronavirus 229E (PCR) Not detected SARS-CoV-2 (PCR) Not detected Coronavirus NL63 (PCR) Not detected Human Metapneumovir PCR Not detected Influenza Type A (PCR) Not detected Influenza Type B (PCR) Not detected M. pneumoniae (PCR) Not detected Parainfluenza 1 (PCR) Not detected Parainfluenza 2 (PCR) Not detected Parainfluenza 3 (PCR) Not detected Parainfluenza 4 (PCR) Not detected RSV (PCR) Not detected Entero/Rhino (PCR) Not detected 06/12/22 06/12/22 11:06 11:35 WBC RBC Hgb Hct MCV MCH MCHC RDW Plt Count Neut % (Auto) Lymph % (Auto) [place] % (Auto) Eos % (Auto) Baso % (Auto) Neut # (Auto) Lymph # (Auto) [place] # (Auto) Eos # (Auto) Baso # (Auto) PT INR APTT ABG pH ABG pCO2 ABG pO2 ABG HCO3 ABG Total CO2 ABG O2 Saturation ABG Base Excess FiO2 Sodium Potassium Chloride Carbon Dioxide BUN Creatinine Estimated GFR BUN/Creatinine Ratio Glucose Lactate 2.3 H Calcium Magnesium Total Bilirubin AST ALT Alkaline Phosphatase Total Creatine Kinase CK-MB (CK-2) CK-MB (CK-2) Rel Index Troponin I NT-Pro-B Natriuret Pep Total Protein Albumin Globulin Albumin/Globulin Ratio Lipase Procalcitonin Urine Color Yellow Urine Appearance Clear Urine pH 6.5 Ur Specific [place] 1.015 Urine Protein Trace H Urine Glucose (UA) Negative Urine Ketones Negative Urine Occult Blood Negative Urine Nitrate Negative Urine Bilirubin 2+ H Ur Bilirubin Confirm Negative Urine Urobilinogen 0.2 Ur Leukocyte Esterase Negative Urine RBC 0-1/hpf Urine WBC 0-1/hpf Ur Squamous Epith Cells 0-1 /hpf Urine Bacteria None seen Hyaline Casts 1-5/lpf Ethyl Alcohol Chlamy pneumoniae PCR Adenovirus (PCR) B. pertussis DNA (PCR) B.parapertussis DNA PCR Coronavirus OC43 (PCR) Coronavirus HKU1 (PCR) Coronavirus 229E (PCR) SARS-CoV-2 (PCR) Coronavirus NL63 (PCR) Human Metapneumovir PCR Influenza Type A (PCR) Influenza Type B (PCR) M. pneumoniae (PCR) Parainfluenza 1 (PCR) Parainfluenza 2 (PCR) Parainfluenza 3 (PCR) Parainfluenza 4 (PCR) RSV (PCR) Entero/Rhino (PCR) Assessment & Plan Assessment & Plan narrative: #LLL pneumonia with effusion #acute respiratory failure with hypoxia Continue heated high flow with iv abx vanc/rocephin and ivf #elevated BNP in setting of generalized peripheral edema suspect diastolic heart failure acute, will continue to diurese balancing hydration vs edema - got some lasix in ED will f/u with some bumex this evening owen in place monitor output #stage four lung cancer on immunotherapy w/ PICC line #extensive peripheral clot burden hold home 2.5 bid eliquis, continue lovenox inpatient Code: DNR/DNI MDM: Maciej [phone] PCP: Alyssa Tabor DVT: lovenox diet: regular time spent incl at bedside: 65 min Time Spent With Patient Critical Care time: I spent a total of [] minutes of critical care time on this patient's care today; this time is exclusive of procedural time.
[2022-06-12] MEDS: SODIUM CHLORIDE 0.9% 1,000 ML 42 ML IV (13:20)
[2022-06-12] MEDS: PIPERACILLIN/TAZO 3.375 GM in SODIUM CHLORIDE 0.9% 100 ML IV ×2 (14:09→21:52)
[2022-06-12] MEDS: ACETAMINOPHEN 325 MG TABLET 650 MG PO (15:10)
--- NOTE | 2022-06-12 16:13 | PT-IP ANOTE ---
Physical therapy order received and chart reviewed. Will hold evaluation until tomorrow if she is medically ready to advance her activity.
[2022-06-12] MEDS: NOREPINEPHRINE BITARTRATE/D5W 4 MG/250 ML PLAST..BAG 30 MG IV (18:18)
--- NOTE | 2022-06-12 20:00 | PC.NURSE ---
Spoke w/ Moriah RN in ED. She states PICC line initially gave good blood return but stopped flowing after 8 cc. Flushes well. Cleared for use by Dr. Zavala. Cap changed. Placed during previous hospitalization. Dr. Allison states not to use for infusion.
[2022-06-12] MEDS: BUMETANIDE 1 MG/4 ML VIAL IV (20:08)
[2022-06-12] MEDS: ENOXAPARIN 60 MG/0.6 ML SYRINGE SUBCUT (21:51)
[2022-06-12] MEDS: QUETIAPINE 25 MG TABLET PO (21:52)
[2022-06-12] MEDS: SERTRALINE 50 MG TABLET 25 MG PO (21:52)
[2022-06-13] VITALS (117 sets, daily range): BP systolic 66–171; BP diastolic 41–81; PULSE 62–122; RESP 17–36; TEMP 36.2–38; O2SAT 77–100
[2022-06-13] MEDS: ACETAMINOPHEN 325 MG TABLET 650 MG PO ×2 (00:45→14:22)
[2022-06-13] MEDS: NOREPINEPHRINE BITARTRATE/D5W 4 MG/250 ML PLAST..BAG 30 MG IV (03:15)
[2022-06-13 04:20] LABS: MRSA (Nasal) PCR Not Detected (Not Detect)
[2022-06-13 04:59] LABS: Hematocrit 35.8 % (36-46); Hemoglobin 11.6 g/dL (12.0-16.0); Mean Corpuscular HGB Conc 32.4 % (30-36); Mean Corpuscular Hemoglobin 30.9 PG (26-34); Mean Corpuscular Volume 95.2 fL (80-100); Platelet Count 168 X10^3/uL (150-400); Red Blood Cell Count 3.76 X10^6/uL (4.0-5.2); Red Cell Distribution Width 18.5 % (11.6-14.8); White Blood Cell Count 27.1 X10^3/uL (4.5-11.0)
[2022-06-13 05:00] LABS: Add Manual Diff / Slide Review YES
[2022-06-13 05:14] LABS: Alanine Aminotransferase 21 IU/L (<35); Albumin 2.4 g/dL (3.5-5.0); Alkaline Phosphatase 86 U/L (38-126); Aspartate Aminotransferase 19 IU/L (14-36); BUN Creatinine Ratio 34.6 (6-22); Bilirubin Total 0.9 mg/dL (0.2-1.3); Blood Urea Nitrogen 37 mg/dL (7-17); Calcium 7.4 mg/dL (8.4-10.2); Carbon Dioxide 35 mmol/L (22-32); Chloride 99 mmol/L (98-107); Estimated Glomerular Filt Rate 53 mL/min (>60); Globulin 2.4 g/dL (1.7-4.1); Glucose 145 mg/dL (80-110); HEMOLYSIS < 15 (0-50); Potassium 3.5 mmol/L (3.4-5.1); Sodium 137 mmol/L (137-145); Total Protein 4.8 g/dL (6.3-8.2)
[2022-06-13] MEDS: PIPERACILLIN/TAZO 3.375 GM in SODIUM CHLORIDE 0.9% 100 ML IV ×3 (05:38→21:44)
--- NOTE | 2022-06-13 06:37 | PC.NURSE ---
Pt. is a&ox3 but is forgetful and remains lethargic. T-max of 100.4, APAP given and temp went down to 98.8. HR is labile with frequent PVC's and had runs of SVT with rate bet. the 120's and as high as 155 which resolved spontaneously. B/P fluctuates and remains on Norepi but decreased from 8 to 6 mcg/min. Pt. remains on HHFNC at 60% Fi02 and 50L flow, lungs decreased throughout with few faint crackles on the bases. Pt. denies pain. Left arm edema seems improved but still is weeping quite a bit, noted edema to LLE worse than the RLE. Pt. received half the dose of Bumex ordered yesterday per report from day SAUL Clay to give only half the dose per Dr. Tauxe. Caban with 825 ml output this shift. Cont. to treat.
[2022-06-13 06:49] LABS: Neutrophils Absolute Manual 25745 /uL (3000-5900); Total Cells Counted 100
[2022-06-13 06:50] LABS: Anisocytosis 2+
--- NOTE | 2022-06-13 08:44 | PT-IP ANOTE ---
Spoke with RN, pt scheduled for Doppler study to check for DVTs in bilateral LEs. Hold until results are available
[2022-06-13] MEDS: MONTELUKAST 10 MG TABLET PO (09:07)
[2022-06-13] MEDS: ENOXAPARIN 60 MG/0.6 ML SYRINGE SUBCUT ×2 (09:07→21:41)
[2022-06-13] MEDS: PANTOPRAZOLE 40 MG VIAL IV (09:07)
[2022-06-13] MEDS: POTASSIUM CHLORIDE 20 MEQ TAB PO (09:11)
--- NOTE | 2022-06-13 11:30 | P.PN_ITS ---
Subjective Subjective Interval history: CC: breathing trouble Pt doing a bit better today with iv diuresis and abx peripheral edema better today still requiring high flow heated at high rate Ate breakfast, urine output has been good through owen started some levo last night, have been able to titrate down today, BP staying ok she is alert and mentating and making good urine EKG strip showing some junctional rhythms maybe some short runs, average rate in the 60s Exam Vital Signs (past 8 hours): - 06/13/22 03:40 06/13/22 03:40 06/13/22 03:42 Temperature 99.1 F 99.1 F Pulse Rate 109 H 105 H Respiratory Rate 23 23 Blood Pressure 163/68 H Pulse Oximetry 94 89 L Oxygen Delivery Method 06/13/22 03:42 06/13/22 03:46 06/13/22 03:46 Temperature 99.1 F Pulse Rate 99 H Respiratory Rate 27 H Blood Pressure 111/67 120/81 Pulse Oximetry 89 L Oxygen Delivery Method 06/13/22 03:50 06/13/22 03:50 06/13/22 03:55 Temperature 99.1 F 99.1 F Pulse Rate 92 H 96 H Respiratory Rate 21 22 Blood Pressure 103/50 L Pulse Oximetry 92 95 Oxygen Delivery Method 06/13/22 03:55 06/13/22 04:00 06/13/22 04:00 Temperature 99.1 F Pulse Rate 88 Respiratory Rate 26 H Blood Pressure 171/71 H 96/55 L Pulse Oximetry 94 Oxygen Delivery Method 06/13/22 04:04 06/13/22 04:05 06/13/22 04:05 Temperature 99.1 F 99.1 F Pulse Rate 76 77 Respiratory Rate 21 23 Blood Pressure 66/41 L Pulse Oximetry 92 92 Oxygen Delivery Method 06/13/22 04:10 06/13/22 04:10 06/13/22 04:13 Temperature 99.1 F Pulse Rate 72 Respiratory Rate 20 Blood Pressure 68/49 L 77/50 L Pulse Oximetry 93 Oxygen Delivery Method 06/13/22 04:13 06/13/22 04:16 06/13/22 04:16 Temperature 99.3 F 99.1 F Pulse Rate 105 H 97 H Respiratory Rate 24 19 Blood Pressure 157/62 H Pulse Oximetry 98 96 Oxygen Delivery Method 06/13/22 04:21 06/13/22 04:21 06/13/22 04:25 Temperature 99.3 F 99.3 F Pulse Rate 86 76 Respiratory Rate 20 22 Blood Pressure 93/45 L Pulse Oximetry 94 94 Oxygen Delivery Method 06/13/22 04:25 06/13/22 04:30 06/13/22 04:30 Temperature 99.3 F Pulse Rate 90 Respiratory Rate 25 H Blood Pressure 77/45 L 115/59 L Pulse Oximetry 95 Oxygen Delivery Method 06/13/22 04:35 06/13/22 04:35 06/13/22 04:40 Temperature 99.1 F 99.1 F Pulse Rate 75 70 Respiratory Rate 21 19 Blood Pressure 111/58 L Pulse Oximetry 96 96 Oxygen Delivery Method 06/13/22 04:40 06/13/22 04:45 06/13/22 04:45 Temperature 99.1 F Pulse Rate 71 Respiratory Rate 20 Blood Pressure 79/50 L 98/59 L Pulse Oximetry 97 Oxygen Delivery Method 06/13/22 04:48 06/13/22 05:00 06/13/22 05:00 Temperature 99.1 F 99.1 F Pulse Rate 70 69 Respiratory Rate 18 21 Blood Pressure 98/53 L Pulse Oximetry 97 99 Oxygen Delivery Method 06/13/22 05:01 06/13/22 05:28 06/13/22 05:15 Temperature 99.1 F 99.0 F Pulse Rate 69 73 68 Respiratory Rate 27 H 18 26 H Blood Pressure 109/56 L Pulse Oximetry 98 97 97 Oxygen Delivery Method 06/13/22 05:15 06/13/22 05:31 06/13/22 05:31 Temperature 98.8 F Pulse Rate 71 Respiratory Rate 25 H Blood Pressure 109/56 L 127/53 L Pulse Oximetry 100 Oxygen Delivery Method 06/13/22 05:45 06/13/22 05:45 06/13/22 06:00 Temperature 99.0 F Pulse Rate 77 Respiratory Rate 19 Blood Pressure 94/52 L 100/64 Pulse Oximetry 100 Oxygen Delivery Method 06/13/22 06:00 06/13/22 06:15 06/13/22 06:15 Temperature 99.0 F 98.8 F Pulse Rate 80 68 Respiratory Rate 19 22 Blood Pressure 108/54 L Pulse Oximetry 99 96 Oxygen Delivery Method 06/13/22 06:30 06/13/22 06:30 06/13/22 06:44 Temperature 99.0 F 99.0 F Pulse Rate 76 65 Respiratory Rate 19 19 Blood Pressure 102/49 L Pulse Oximetry 98 98 Oxygen Delivery Method 06/13/22 06:45 06/13/22 06:45 06/13/22 07:00 Temperature 99.0 F 99.0 F Pulse Rate 66 71 Respiratory Rate 18 18 Blood Pressure 105/65 Pulse Oximetry 98 98 Oxygen Delivery Method 06/13/22 07:00 06/13/22 07:15 06/13/22 07:15 Temperature 99.0 F Pulse Rate 69 Respiratory Rate 18 Blood Pressure 95/54 L 98/58 L Pulse Oximetry Oxygen Delivery Method 06/13/22 07:22 06/13/22 07:52 06/13/22 08:00 Temperature 98.6 F 97.2 F L Pulse Rate 71 65 Respiratory Rate 25 H 18 Blood Pressure 108/57 L Pulse Oximetry 98 99 Oxygen Delivery Method 06/13/22 07:30 06/13/22 07:30 06/13/22 08:00 Temperature 99.0 F 99.0 F Pulse Rate 69 68 Respiratory Rate 18 18 Blood Pressure 108/57 L Pulse Oximetry 99 99 Oxygen Delivery Method 06/13/22 08:00 06/13/22 08:30 06/13/22 08:30 Temperature 99.0 F Pulse Rate 80 Respiratory Rate 18 Blood Pressure 96/69 103/76 Pulse Oximetry 96 Oxygen Delivery Method 06/13/22 09:01 06/13/22 09:01 06/13/22 09:31 Temperature 99.0 F 99.0 F Pulse Rate 85 77 Respiratory Rate 28 H 25 H Blood Pressure 123/58 L Pulse Oximetry 96 Oxygen Delivery Method 06/13/22 09:31 06/13/22 10:01 06/13/22 10:01 Temperature 99.1 F Pulse Rate 73 Respiratory Rate 30 H Blood Pressure 126/60 117/59 L Pulse Oximetry 99 Oxygen Delivery Method 06/13/22 10:07 06/13/22 07:00 06/13/22 11:11 Temperature 99.1 F Pulse Rate 85 Respiratory Rate 25 H Blood Pressure Pulse Oximetry 99 Oxygen Delivery Method Heated High Flow Heated High Flow 06/13/22 10:30 06/13/22 10:30 06/13/22 11:00 Temperature 99.3 F Pulse Rate 69 Respiratory Rate 27 H Blood Pressure 115/54 L 103/54 L Pulse Oximetry 97 Oxygen Delivery Method 06/13/22 11:00 06/13/22 11:04 06/13/22 11:11 Temperature 99.5 F 99.5 F Pulse Rate 64 64 64 Respiratory Rate 22 23 20 Blood Pressure 103/54 L Pulse Oximetry 95 95 92 Oxygen Delivery Method Oxygen Delivery Method Heated High Flow Oxygen Flow Rate 50 Narrative Exam Narrative: pleasant elder in bed with HHF NC Const General: cooperative, comfortable, No in distress and ill appearing [facility] Head: normocephalic and atraumatic Eyes General: appearance normal, both eyes and all related structures Resp Other: shallow breaths minimal crackles Cardio Other: irregular rhythm normal rate looks partially junctional on strip GI Other: soft nontender nondistended normal bowel sounds Skin Other: R supraclavicular LN wound under dressing Neuro General: patient alert and patient awake Other: oriented to family members but not day of the week Extrem Other: peripheral edema improved still present less weeping Objective Labs 06/13/22 04:22 06/13/22 04:22 Labs: Laboratory Results - last 24 hr 06/12/22 06/12/22 06/12/22 09:00 09:35 09:45 WBC RBC Hgb Hct MCV MCH MCHC RDW Plt Count Neut % (Auto) Lymph % (Auto) [place] % (Auto) Eos % (Auto) Baso % (Auto) Lymph # (Auto) [place] # (Auto) Baso # (Auto) Total Counted Seg Neutrophils % Band Neutrophils % Lymphocytes % (Manual) Monocytes % (Manual) Eosinophils % (Manual) Neutrophils # (Manual) RBC Morphology Anisocytosis PT 18.5 H INR 1.6 H APTT 27 Sodium Potassium Chloride Carbon Dioxide BUN Creatinine Estimated GFR BUN/Creatinine Ratio Glucose Lactate Calcium Total Bilirubin AST ALT Alkaline Phosphatase Total Protein Albumin Globulin Albumin/Globulin Ratio Urine Color Urine Appearance Urine pH Ur Specific [place] Urine Protein Urine Glucose (UA) Urine Ketones Urine Occult Blood Urine Nitrate Urine Bilirubin Ur Bilirubin Confirm Urine Urobilinogen Ur Leukocyte Esterase Urine RBC Urine WBC Ur Squamous Epith Cells Urine Bacteria Hyaline Casts Nasal Screen MRSA (PCR) Ethyl Alcohol < 10 Chlamy pneumoniae PCR Not detected Adenovirus (PCR) Not detected B. pertussis DNA (PCR) Not detected B.parapertussis DNA PCR Not detected Coronavirus OC43 (PCR) Not detected Coronavirus HKU1 (PCR) Not detected Coronavirus 229E (PCR) Not detected SARS-CoV-2 (PCR) Not detected Coronavirus NL63 (PCR) Not detected Human Metapneumovir PCR Not detected Influenza Type A (PCR) Not detected Influenza Type B (PCR) Not detected M. pneumoniae (PCR) Not detected Parainfluenza 1 (PCR) Not detected Parainfluenza 2 (PCR) Not detected Parainfluenza 3 (PCR) Not detected Parainfluenza 4 (PCR) Not detected RSV (PCR) Not detected Entero/Rhino (PCR) Not detected 06/12/22 06/12/22 06/13/22 11:06 11:35 03:00 WBC RBC Hgb Hct MCV MCH MCHC RDW Plt Count Neut % (Auto) Lymph % (Auto) [place] % (Auto) Eos % (Auto) Baso % (Auto) Lymph # (Auto) [place] # (Auto) Baso # (Auto) Total Counted Seg Neutrophils % Band Neutrophils % Lymphocytes % (Manual) Monocytes % (Manual) Eosinophils % (Manual) Neutrophils # (Manual) RBC Morphology Anisocytosis PT INR APTT Sodium Potassium Chloride Carbon Dioxide BUN Creatinine Estimated GFR BUN/Creatinine Ratio Glucose Lactate 2.3 H Calcium Total Bilirubin AST ALT Alkaline Phosphatase Total Protein Albumin Globulin Albumin/Globulin Ratio Urine Color Yellow Urine Appearance Clear Urine pH 6.5 Ur Specific [place] 1.015 Urine Protein Trace H Urine Glucose (UA) Negative Urine Ketones Negative Urine Occult Blood Negative Urine Nitrate Negative Urine Bilirubin 2+ H Ur Bilirubin Confirm Negative Urine Urobilinogen 0.2 Ur Leukocyte Esterase Negative Urine RBC 0-1/hpf Urine WBC 0-1/hpf Ur Squamous Epith Cells 0-1 /hpf Urine Bacteria None seen Hyaline Casts 1-5/lpf Nasal Screen MRSA (PCR) Not detected Ethyl Alcohol Chlamy pneumoniae PCR Adenovirus (PCR) B. pertussis DNA (PCR) B.parapertussis DNA PCR Coronavirus OC43 (PCR) Coronavirus HKU1 (PCR) Coronavirus 229E (PCR) SARS-CoV-2 (PCR) Coronavirus NL63 (PCR) Human Metapneumovir PCR Influenza Type A (PCR) Influenza Type B (PCR) M. pneumoniae (PCR) Parainfluenza 1 (PCR) Parainfluenza 2 (PCR) Parainfluenza 3 (PCR) Parainfluenza 4 (PCR) RSV (PCR) Entero/Rhino (PCR) 06/13/22 06/13/22 04:22 04:22 WBC 27.1 H RBC 3.76 L Hgb 11.6 L Hct 35.8 L MCV 95.2 MCH 30.9 MCHC 32.4 RDW 18.5 H Plt Count 168 Neut % (Auto) Not Reportable Lymph % (Auto) Not Reportable [place] % (Auto) Not Reportable Eos % (Auto) Not Reportable Baso % (Auto) Not Reportable Lymph # (Auto) Not Reportable [place] # (Auto) Not Reportable Baso # (Auto) Not Reportable Total Counted 100 Seg Neutrophils % 78.0 H Band Neutrophils % 17.0 H Lymphocytes % (Manual) 2.0 L Monocytes % (Manual) 2.0 Eosinophils % (Manual) 1.0 L Neutrophils # (Manual) 27037 H RBC Morphology See below Anisocytosis 2+ H PT INR APTT Sodium 137 Potassium 3.5 Chloride 99 Carbon Dioxide 35 H BUN 37 H Creatinine 1.07 H Estimated GFR 53 L BUN/Creatinine Ratio 34.6 H Glucose 145 H Lactate Calcium 7.4 L Total Bilirubin 0.9 AST 19 ALT 21 Alkaline Phosphatase 86 Total Protein 4.8 L Albumin 2.4 L Globulin 2.4 Albumin/Globulin Ratio 1.0 Urine Color Urine Appearance Urine pH Ur Specific [place] Urine Protein Urine Glucose (UA) Urine Ketones Urine Occult Blood Urine Nitrate Urine Bilirubin Ur Bilirubin Confirm Urine Urobilinogen Ur Leukocyte Esterase Urine RBC Urine WBC Ur Squamous Epith Cells Urine Bacteria Hyaline Casts Nasal Screen MRSA (PCR) Ethyl Alcohol Chlamy pneumoniae PCR Adenovirus (PCR) B. pertussis DNA (PCR) B.parapertussis DNA PCR Coronavirus OC43 (PCR) Coronavirus HKU1 (PCR) Coronavirus 229E (PCR) SARS-CoV-2 (PCR) Coronavirus NL63 (PCR) Human Metapneumovir PCR Influenza Type A (PCR) Influenza Type B (PCR) M. pneumoniae (PCR) Parainfluenza 1 (PCR) Parainfluenza 2 (PCR) Parainfluenza 3 (PCR) Parainfluenza 4 (PCR) RSV (PCR) Entero/Rhino (PCR) [facility] Medical History Facet arthropathy, cervical Fractures (~2018) HLD (hyperlipidemia) Measles (~1949) Staph aureus infection (04/09/22) Vertigo (~2013) Vertigo Surgical History Anesthesia History of biopsy (03/24/22) History of hip replacement (~2016) History of hysterectomy (~1966) Family History Father Cancer Brother Melanoma Mother Lung cancer Social History household members: spouse Smoking Status: Former smoker alcohol intake: current substance use type: does not use Assessment & Plan Assessment & Plan narrative: #LLL pneumonia with effusion and sepsis #acute respiratory failure with hypoxia Continue heated high flow with iv abx vanc/rocephin and ivf use incentive spirometer #elevated BNP in setting of generalized peripheral edema suspect diastolic heart failure acute, will continue to diurese balancing hydration vs edema -? continue lasix today wth fluids at [address] monitor output #stage four lung cancer s/p immunotherapy w/ PICC line #extensive peripheral clot burden hold home 2.5 bid eliquis, continue lovenox inpatient Based on available imaging it does seem like this line should be ok to use if necessary - ok to do blood draws from it Code: DNR/DNI MDM: Maciej [phone] PCP: Alyssa Tabor DVT: lovenox diet: regular Time Spent With Patient Critical Care time: I spent a total of [] minutes of critical care time on this patient's care today; this time is exclusive of procedural time. Quality VTE Deep Vein Thrombosis/Pulmonary Embolism Present on Admission: Yes
--- NOTE | 2022-06-13 11:30 | DI.US.S_ITS ---
PROCEDURE: US PERIPH VENOUS LOW EXTREM LT INDICATIONS: EDEMA TECHNIQUE: Real-time imaging, as well as color and pulse Doppler interrogation, were performed of the lower extremity deep veins from the inguinal ligament to the popliteal fossa. COMPARISON: None. FINDINGS: The common femoral, femoral and popliteal veins are normally compressible, and free of intraluminal thrombus. Color and pulse Doppler demonstrate normal phasic intraluminal flow. There is normal augmentation response to distal compression maneuver. IMPRESSION: No DVT in the left lower extremity Dictated by: Antonio Dawn M.D. on 06/13/2022 at 11:49 Approved by: Antonio Dawn M.D. on 06/13/2022 at 11:49
[2022-06-13] MEDS: FUROSEMIDE 40 MG/4 ML VIAL IV ×2 (11:54→21:41)
[2022-06-13] MEDS: VANCOMYCIN 1,000 MG/200 ML PIGGYBACK 200 MG IV (11:54)
[2022-06-13] MEDS: NOREPINEPHRINE BITARTRATE/D5W 4 MG/250 ML PLAST..BAG 22.5 MG IV (11:56)
[2022-06-13] MEDS: SODIUM CHLORIDE 0.9% 1,000 ML 42 ML IV (14:34)
--- NOTE | 2022-06-13 15:59 | CM.DANOTE ---
DCP/Assessment: Reviewed chart. Patient is a 81yr old female admitted [facility] leth[facility]. Patient with h/o stage four Lung CA. PCP is Dr. Tabor. Primary payor is out of state [facility]. Met with patient and spouse/Maciej at bedside explained CM/SW role. Patient asleep at time of visit. Spouse reports that patient was doing great up until her new dx of Lung CA in March 2022. Spouse reports since then everything has gone downhill. Patient recently received immunotherapy and got very sick afterwards. At this time d/c needs unknown. MERCHANDISING SPECIALIST discussed SNF, HH, and Hospice indicating those could all be potential options depending on patient's progression. P: Pending. KJS Discharge Planning/Care Management Advanced directive, confirm from CLINIC Start: 06/12/22 14:51 Freq: Q24H Status: Active Protocol: Document 06/12/22 14:51 DAVID (Rec: 06/12/22 15:12 DAVID [id number]) Advance Directive, confirm on record Time 15:12 Person contacted Family Copy received No CM Discharge Assessment Start: 06/13/22 15:54 Freq: Status: Active Protocol: Document 06/13/22 15:54 KJS (Rec: 06/13/22 15:59 KJS [id number]) Discharge Planning Assessment Assigned Fabric Finisher JATIN Estrada Contact Information Maciej Patel (spouse) # [phone] Advance Directives? Yes Advance Directives on File No: on file at Dr. Tabor's office History Provided By Patient,Family Member,Medical Record Prior Living Arrangements House Household Members spouse Type of transporation used prior to Drives own vehicle admit Comment Patient completely I prior to cancer dx in March 2022. Independent with ADL's No: Unable to move do to status in ICU Is patient alert and oriented? No: Sleepy at this time Caregiver for Another No Comment Has home oxygen at baseline Patient/Family Preference Home with Home Health Barriers to Discharge No Comment Too soon to determine what will be needed at time of d/c. Spouse reports that they are already on service with [facility] for HH. MERCHANDISING SPECIALIST also dicussed SNF and hospice as possibilities. Spouse hopes to get more information tomorrow from Dr. Mohan and Dr. Osman. Discharge Plan Home with Home Health Transportation Arrangement Spouse Referrals Initiated Home Health Additional Comment Resume [facility] Medicare Choice List Provided No SNF/HH Preference Patient already on HH service and has no desire to switch agencies. Whiteboard Updated in Patient Room with Yes name and ext. # of Fabric Finisher Review Status In Process Next Review Type Continued Stay Review
[2022-06-13] MEDS: diazePAM 10 MG/2 ML SYRINGE 1.5 MG IV (16:06)
[2022-06-13] MEDS: SERTRALINE 50 MG TABLET 25 MG PO (21:45)
[2022-06-13] MEDS: QUETIAPINE 25 MG TABLET PO (21:45)
--- NOTE | 2022-06-13 22:44 | PC.NURSE ---
pt asked to be repositioned; found that she had a small loose BM; hilaria care given, Allevyn to sacrum changed, linens changed, and pt repositioned to right side with pillows and waffle cushion; pt tolerated well
[2022-06-14] VITALS (67 sets, daily range): BP systolic 67–135; BP diastolic 48–108; PULSE 77–121; RESP 16–42; TEMP 36.9–37.6; O2SAT 79–98
[2022-06-14] MEDS: PIPERACILLIN/TAZO 3.375 GM in SODIUM CHLORIDE 0.9% 100 ML IV (05:47)
[2022-06-14 06:46] LABS: Add Manual Diff / Slide Review NO; Basophils Absolute Auto 100 /uL (0-100); Basophils Percent Auto 0.4 % (0-2); Eosinophils Absolute Auto 100 /uL (0-450); Eosinophils Percent Auto 0.4 % (2-4); Hematocrit 32.4 % (36-46); Hemoglobin 10.7 g/dL (12.0-16.0); Lymphocytes Absolute Auto 800 /uL (1100-4500); Lymphocytes Percent Auto 3.4 % (25-40); Mean Corpuscular HGB Conc 33.1 % (30-36); Mean Corpuscular Hemoglobin 31.2 PG (26-34); Mean Corpuscular Volume 94.1 fL (80-100); Monocytes Absolute Auto 800 /uL (0-900); Monocytes Percent Auto 3.2 % (3-14); Neutrophils Absolute Auto 22100 /uL (1500-7000); Neutrophils Percent Auto 92.6 % (50-75); Platelet Count 138 X10^3/uL (150-400); Red Blood Cell Count 3.44 X10^6/uL (4.0-5.2); White Blood Cell Count 23.9 X10^3/uL (4.5-11.0)
[2022-06-14 06:53] LABS: Alanine Aminotransferase 19 IU/L (<35); Albumin 2.2 g/dL (3.5-5.0); Alkaline Phosphatase 77 U/L (38-126); Aspartate Aminotransferase 14 IU/L (14-36); BUN Creatinine Ratio 36.1 (6-22); Bilirubin Total 0.7 mg/dL (0.2-1.3); Blood Urea Nitrogen 30 mg/dL (7-17); Calcium 6.8 mg/dL (8.4-10.2); Carbon Dioxide 38 mmol/L (22-32); Chloride 97 mmol/L (98-107); Estimated Glomerular Filt Rate > 60 mL/min (>60); Globulin 2.3 g/dL (1.7-4.1); Glucose 133 mg/dL (80-110); HEMOLYSIS < 15 (0-50); Sodium 137 mmol/L (137-145); Total Protein 4.5 g/dL (6.3-8.2)
--- NOTE | 2022-06-14 06:58 | PC.NURSE ---
Pt has had a fairly restful night; She did have an episode of decreased blood pressure and difficulty obtaining pulse ox readings; norepinephrine was increased to 4mcg/min; heated high flow was titrated and is currently at a flow of 40l and fio2 of 50%; she has had 2 small bowel movements; she has had her sacral and buttock dressings changed twice; left arm is weeping and placed on blue pad
[2022-06-14 07:01] LABS: Potassium 2.7 mmol/L (3.4-5.1)
[2022-06-14] MEDS: NOREPINEPHRINE BITARTRATE/D5W 4 MG/250 ML PLAST..BAG 3.75 MG IV (08:36)
[2022-06-14] MEDS: ENOXAPARIN 60 MG/0.6 ML SYRINGE SUBCUT (08:37)
[2022-06-14] MEDS: MONTELUKAST 10 MG TABLET PO (08:37)
[2022-06-14] MEDS: PANTOPRAZOLE 40 MG VIAL IV (08:37)
[2022-06-14] MEDS: POTASSIUM CHLORIDE IN WATER 10 MEQ/100 ML PIGGYBACK 100 MEQ IV ×3 (09:45→12:29)
[2022-06-14] MEDS: MORPHINE 2 MG/ML INJ 1 MG IV (09:46)
[2022-06-14] MEDS: diazePAM 10 MG/2 ML SYRINGE 1.5 MG IV (11:04)
[2022-06-14] MEDS: VANCOMYCIN 750 MG/150 ML PIGGYBACK 150 MG IV (11:04)
[2022-06-14] MEDS: FUROSEMIDE 40 MG/4 ML VIAL IV (11:04)
--- NOTE | 2022-06-14 11:33 | CM.DPC ---
DCP/continued: Reviewed chart. Spoke with Dr. Tabor this AM whom reports that patient/family want only comfort measures. Dr. Tabor plans to check back at [facility] to confirm this and start comfort measures. PAYMENT POSTER met with patient, son, daughter, and spouse. All emotional given the circumstances. Spouse willett not want to take patient home with hospice. Spouse spoke with patient and she confirmed that. Provided patient and family with all options including home with hospice, Hospice house in [place], and Hospice in SNF setting. Family would like PAYMENT POSTER to check with [facility] for bed. Family aware that room and board will not be included but that hospice services will. Placed call to September requesting she review for admit. Also spoke with Evelyn at [facility] whom reports that they can see patient either in home or SNF this week. P: Family requesing patient be placed via private pay in [facility] with hospice. CM team following closely. Lastly, I notified September that family wanted to come over and see the patient rooms prior to her moving. Notified September that family plans to stop by [facility] today to see the patient rooms. MIGUELANGEL
--- NOTE | 2022-06-14 13:05 | PC.NURSE ---
1230 Patient states I'm ready for my life to be over with a facial grimmace. This continuity writer responded that we will keep her as comfortable as possible.
--- NOTE | 2022-06-14 13:10 | PT-IP ANOTE ---
Addendum entered and electronically signed by Marci Lopez PT 06/14/22 14:07: Goals of care clarified and pt/family have elected comfort care. Will discharge PT orders. Original Note: PT remains available for evaluation but will wait for determination of pt's and family's goals of care. Will follow up tomorrow.
--- NOTE | 2022-06-14 13:20 | PM.PN.1 ---
Subjective Subjective Interval history: Feeling tired today. Pain with breathing. still on high flow o2. no other changes. wbc slightly down. no other changes. family not sure what next step is Exam Vital Signs (past 8 hours): - 06/14/22 06:13 06/14/22 05:30 06/14/22 05:30 Temperature 99.0 F Pulse Rate 86 104 H Respiratory Rate 20 21 Blood Pressure 109/59 L 99/48 L Pulse Oximetry 94 96 Oxygen Delivery Method 06/14/22 05:45 06/14/22 05:45 06/14/22 06:00 Temperature 99.0 F 99.0 F Pulse Rate 110 H 102 H Respiratory Rate 27 H 24 Blood Pressure 131/84 Pulse Oximetry 94 95 Oxygen Delivery Method 06/14/22 06:00 06/14/22 06:15 06/14/22 06:15 Temperature 99.0 F Pulse Rate 97 H Respiratory Rate 22 Blood Pressure 109/59 L 125/55 L Pulse Oximetry 95 Oxygen Delivery Method 06/14/22 06:30 06/14/22 06:30 06/14/22 06:45 Temperature 98.6 F 98.8 F Pulse Rate 121 H 111 H Respiratory Rate 37 H 20 Blood Pressure 119/53 L Pulse Oximetry 91 95 Oxygen Delivery Method 06/14/22 06:45 06/14/22 06:46 06/14/22 07:39 Temperature 98.8 F Pulse Rate 116 H 117 H Respiratory Rate 21 16 Blood Pressure 130/60 109/53 L Pulse Oximetry 95 95 Oxygen Delivery Method 06/14/22 07:00 06/14/22 07:00 06/14/22 07:15 Temperature 98.8 F Pulse Rate 110 H Respiratory Rate 18 Blood Pressure 107/55 L 95/51 L Pulse Oximetry 97 Oxygen Delivery Method 06/14/22 07:15 06/14/22 07:30 06/14/22 07:30 Temperature 99.0 F 99.1 F Pulse Rate 99 H 97 H Respiratory Rate 19 19 Blood Pressure 109/53 L Pulse Oximetry 96 95 Oxygen Delivery Method 06/14/22 07:45 06/14/22 07:45 06/14/22 08:00 Temperature 99.1 F Pulse Rate 92 H Respiratory Rate 18 Blood Pressure 106/64 109/57 L Pulse Oximetry 95 Oxygen Delivery Method 06/14/22 08:00 06/14/22 08:15 06/14/22 08:15 Temperature 99.1 F 99.1 F Pulse Rate 112 H 106 H Respiratory Rate 21 30 H Blood Pressure 133/76 Pulse Oximetry 94 Oxygen Delivery Method 06/14/22 08:30 06/14/22 08:31 06/14/22 08:31 Temperature 99.1 F 99.1 F Pulse Rate 108 H 104 H Respiratory Rate 30 H 32 H Blood Pressure 135/108 H Pulse Oximetry 92 92 Oxygen Delivery Method 06/14/22 08:45 06/14/22 08:46 06/14/22 08:46 Temperature 99.1 F 99.1 F Pulse Rate 100 H 112 H Respiratory Rate 24 34 H Blood Pressure 133/57 L Pulse Oximetry 92 91 Oxygen Delivery Method 06/14/22 09:00 06/14/22 09:00 06/14/22 09:15 Temperature 99.1 F Pulse Rate 99 H Respiratory Rate 27 H Blood Pressure 107/53 L 120/61 Pulse Oximetry 94 Oxygen Delivery Method 06/14/22 09:15 06/14/22 09:30 06/14/22 09:30 Temperature 99.0 F 99.1 F Pulse Rate 93 H 92 H Respiratory Rate 28 H 32 H Blood Pressure 123/83 Pulse Oximetry 97 97 Oxygen Delivery Method 06/14/22 09:45 06/14/22 09:45 06/14/22 10:07 Temperature 99.3 F Pulse Rate 82 95 H Respiratory Rate 26 H 18 Blood Pressure 100/54 L Pulse Oximetry 98 95 Oxygen Delivery Method 06/14/22 10:00 06/14/22 10:00 06/14/22 10:15 Temperature 99.5 F Pulse Rate 82 Respiratory Rate 26 H Blood Pressure 95/55 L 93/57 L Pulse Oximetry 97 Oxygen Delivery Method 06/14/22 10:15 06/14/22 10:30 06/14/22 10:30 Temperature 99.7 F H 99.7 F H Pulse Rate 84 77 Respiratory Rate 29 H 25 H Blood Pressure 100/57 L Pulse Oximetry 94 96 Oxygen Delivery Method 06/14/22 08:00 06/14/22 10:45 06/14/22 10:45 Temperature 99.7 F H Pulse Rate 81 Respiratory Rate 27 H Blood Pressure 103/55 L Pulse Oximetry 95 Oxygen Delivery Method Heated High Flow 06/14/22 11:00 06/14/22 11:00 06/14/22 11:15 Temperature 99.7 F H Pulse Rate 81 Respiratory Rate 25 H Blood Pressure 103/55 L 111/62 Pulse Oximetry 95 Oxygen Delivery Method 06/14/22 11:15 06/14/22 11:30 06/14/22 11:30 Temperature 99.5 F 99.5 F Pulse Rate 110 H 78 Respiratory Rate 32 H 25 H Blood Pressure 117/56 L Pulse Oximetry 95 95 Oxygen Delivery Method 06/14/22 11:45 06/14/22 12:00 06/14/22 12:00 Temperature 99.5 F 99.5 F Pulse Rate 84 82 Respiratory Rate 26 H 20 Blood Pressure 108/55 L Pulse Oximetry 94 95 Oxygen Delivery Method 06/14/22 12:15 06/14/22 12:30 06/14/22 12:30 Temperature 99.5 F 99.5 F Pulse Rate 77 86 Respiratory Rate 19 28 H Blood Pressure 104/63 Pulse Oximetry 95 94 Oxygen Delivery Method Oxygen Delivery Method Heated High Flow Oxygen Flow Rate 50 Narrative Exam Narrative: Alert fatigued female in nad lungs decreased breath sounds heart regular rate rhythym Objective Labs 06/14/22 06:14 06/14/22 06:14 Labs: Laboratory Results - last 24 hr 06/13/22 06/14/22 06/14/22 04:22 04:20 06:14 WBC Cancelled RBC Cancelled Hgb Cancelled Hct Cancelled MCV Cancelled MCH Cancelled MCHC Cancelled RDW Cancelled Plt Count Cancelled Neut % (Auto) Cancelled Lymph % (Auto) Cancelled Louisa % (Auto) Cancelled Eos % (Auto) Cancelled Baso % (Auto) Cancelled Neut # (Auto) Cancelled Lymph # (Auto) Cancelled Louisa # (Auto) Cancelled Eos # (Auto) Cancelled Baso # (Auto) Cancelled Sodium 137 137 Potassium 3.5 2.7 L* Chloride 99 97 L Carbon Dioxide 35 H 38 H BUN 37 H 30 H Creatinine 1.07 H 0.83 Estimated GFR 53 L > 60 BUN/Creatinine Ratio 34.6 H 36.1 H Glucose 145 H 133 H Calcium 7.4 L 6.8 L Total Bilirubin 0.9 0.7 AST 19 14 ALT 21 19 Alkaline Phosphatase 86 77 Total Protein 4.8 L 4.5 L Albumin 2.4 L 2.2 L Globulin 2.4 2.3 Albumin/Globulin Ratio 1.0 1.0 06/14/22 06:14 WBC 23.9 H RBC 3.44 L Hgb 10.7 L Hct 32.4 L MCV 94.1 MCH 31.2 MCHC 33.1 RDW 18.0 H Plt Count 138 L Neut % (Auto) 92.6 H Lymph % (Auto) 3.4 L Louisa % (Auto) 3.2 Eos % (Auto) 0.4 L Baso % (Auto) 0.4 Neut # (Auto) 81989 H Lymph # (Auto) 800 L Louisa # (Auto) 800 Eos # (Auto) 100 Baso # (Auto) 100 Sodium Potassium Chloride Carbon Dioxide BUN Creatinine Estimated GFR BUN/Creatinine Ratio Glucose Calcium Total Bilirubin AST ALT Alkaline Phosphatase Total Protein Albumin Globulin Albumin/Globulin Ratio PFSH Medical History Facet arthropathy, cervical Fractures (~2017) HLD (hyperlipidemia) Measles (~194) Staph aureus infection (04/09/22) Vertigo (~2013) Vertigo Surgical History Anesthesia History of biopsy (03/24/22) History of hip replacement (~2016) History of hysterectomy (~1966) Family History Father Cancer Brother Melanoma Mother Lung cancer Social History household members: spouse Smoking Status: Former smoker alcohol intake: current substance use type: does not use Assessment & Plan Assessment & Plan narrative: metastatic lung ca. Long discussion with patient, family, nurse and social media intern. With hypotension, metastatic disease, infection and hypoxia low likelyhood of good outcome over the next few days and terminal skilled nursing. discussed all this and we dicussed options. Patient would like to go to comfort care and will follow with wishes. discussed expectations. will plan on discharge wed but expect demise in next 24 hours. All questions answered. 40 min with discussion with all involved and usual charting and orders. Time Spent With Patient Critical Care time: I spent a total of [] minutes of critical care time on this patient's care today; this time is exclusive of procedural time. Quality VTE Deep Vein Thrombosis/Pulmonary Embolism Present on Admission: Yes
[2022-06-14] MEDS: HYDROMORPHONE 0.5 MG INJ IV ×2 (13:27→15:35)
[2022-06-14] MEDS: MORPHINE 50 MG in DEXTROSE 5 % IN WATER 45 ML IV (13:50)
--- NOTE | 2022-06-14 15:28 | CM.DPNOTE ---
DCP/continued: Spoke with Dr. Tabor both this AM and this afternoon. Dr. Tabor confirms this afternoon that family would like only comfort care Dr. Tabor transitioning her today. In the meantime, DIRECTOR OF OPERATIONS HOME HEALTH met with family which included spouse, son, and daughter. Spouse reports that he does not want to take the patient home. Provided options to family that included the followin)home with hospice 2)hospice house 3)SNF private pay for room and board with hospice. Spouse would like us to look into [facility]. Placed call to September at [facility] and she will review for private pay room/board with hospice following. Dr. Tabor anticipates that patient most likely will at [facility] within the next 24hrs. if not he is agreeable to transfer. P: Pending. MIGUELANGEL
[2022-06-14] MEDS: diazePAM 10 MG/2 ML SYRINGE 2 MG IV (16:36)
--- NOTE | 2022-06-14 19:11 | PC.NURSE ---
1854 Patient has . No heart beat auscultated. No respirations. Patient's , son, and daughter are present and aware of patient's expiration. Patient's selected [facility]. 1910 Patient's family leaving the hospital
--- NOTE | 2022-06-15 07:51 | CM.DPC ---
DCP Per MD, pt was made fully comfort measures yesterday 06/14/22 around noon and was taken off all lines and oxygen and around 1999. Family was bedside and aware. JATIN Arenas
--- NOTE | 2022-06-15 08:30 | P.DN_ITS ---
Discharge Summary History of Illness Narrative: CC: acting lethargic Pt with history of? 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 He does not want to go to comfort care only, continue treatment at this time - she is started on iv abx in ED with some lasix which is reasonable Hospital Course Date of Admission: 06/12/22 11:40 Date of : 06/14/22 Primary care provider: Mika Tabor MD Consults: 06/12/22 12:41 Consult to Physical Therapy Evaluate & Treat Comment: Physician Instructions: Evaluate and Treat 06/12/22 19:59 Consult to COMMUNICATIONS DIRECTOR - [employer] Routine Comment: Discharge Diagnosis: Metastatic lung cancer stage IV Left lower lobe pneumonia acute respiratory failure hypotension Hospital Course: Patient was admitted to the hospital and began on IV antibiotics vancomycin and Rocephin. The high-flow O2. Patient was noted to have decreased blood pressure and was started on IV blood pressure support. Elevated BNP was undertaken in the question was whether she was dry or not. Had got some Lasix in the ER but blood pressure was not maintaining no further IV was given. Patient was significantly fatigued. She a high requirement for O2 elevated white count and a DVT in her right arm not in her left leg else was thought. Patient had not improve. And on the with a long discussion with family and her about outcomes. Long-term manifestations and after discussion she elected to discontinue all support. Morphine drip and Valium were made available. She was completely comfortable and passed that day. Objective Labs 06/14/22 06:14 06/14/22 06:14
--- NOTE | 2022-06-16 10:22 | ONC.MSW ---
*Send bereavement card.
[2022-06-16 18:14] LABS: pH ABG 7.52 (7.35-7.45)
[2022-06-16 18:15] LABS: Oxygen Saturation ABG 94 % (95-100)
== END 2022-06-14 18:55 | disposition expired | DRG 871 ==
LOC: ED 11:35 → AC 11:41 → ICU 12:59
PROVIDERS: Admitting Provider Family Medicine; Emergency Provider Emergency Medicine; Family Provider Family Medicine; PCP Family Medicine; Referring Provider Emergency Medicine; Visit Provider Family Medicine
DX: A41.9 Sepsis, unspecified organism (principal); J18.9 Pneumonia, unspecified organism; J96.01 Acute respiratory failure with hypoxia; C34.92 Malignant neoplasm of unspecified part of left bronchus or lung; R65.20 Severe sepsis without septic shock; I95.9 Hypotension, unspecified; Z87.891 Personal history of nicotine dependence; Z51.5 Encounter for palliative care; Z20.822 Contact with and (suspected) exposure to COVID-19; Z66 Do not resuscitate
CPT/HCPCS: 36415; 36600; 71045; 80053; 80320; 81001; 82550; 82805; 83605; 83690; 83735; 83880; 84145; 84484; 85007; 85025; 85610; 85730; 87040; 87086; 87633; 87797; 93005; 93010; 93971; 96365; 96367; 96375; 99285; C9113; J1170; J1650; J1940; J2270; J2543; J3360